=== PATIENT | female | born 1995 | race Caucasian/White ===

== ENCOUNTER → 2019-02-14 10:19 | Outpatient (CLI) | payer BC, SELFPAY | PROVIDERS: PCP Internal Medicine Adolescent Medicine; Visit Provider Internal Medicine Adolescent Medicine | DX: R00.2 Palpitations (principal); R55 Syncope and collapse | CPT/HCPCS: 93225; 93226 ==

== ENCOUNTER → 2019-02-18 14:41 | Outpatient (CLI) | payer BC, SELFPAY ==
--- NOTE | 2019-02-18 14:44 | CA_ITS ---
APPROVED REPORT EXAM: Comprehensive 2D, Doppler, and color-flow Echocardiogram Gasoline Tester: Angela Moulton CRT Ht: 5 ft 2 in Wt: 139lbs BSA: 1.64 BP: 110/60 mmHg Indications: palpitations, cp Echo Enhancing Agent Indication: Rule Out Septal Defect Agent(s) / Amount(s) Used: Agitated Saline 15 cc Comments: possible positive b/s. 2D Dimensions LVOT 1.83 cm (M/F) 1.5-2.5 M-Mode Dimensions RVDd 1.87 cm (0.9-2.6) LVDd 4.19 cm (3.5-5.7) LVDs 2.95 cm (3.5-5.7) IVSd 0.96 cm (0.6-1.1) PWd 0.74 cm (0.6-1.1) EF (Teich) 57.00% FS 29.60% EDV (Teich) 78.10 mL ESV (Teich) 33.60 mL LV Diastology E/A Ratio 1.66 Mitral Valve MV A Velocity 51.00 (40-130 cm/s) Left Ventricle Left atrium is normal size, left ventricle is normal size, there is no concentric left ventricular hypertrophy, visually estimated ejection fraction 55% with no regional wall motion abnormality, diastolic parameters are within normal range. Right Ventricle Right atrium and right ventricular normal size and contractility. Atria Interatrial septum is intact, there is no flow across the interatrial septum, agitated saline contrast reveals 25 intracardiac shunt. Aortic Valve Aortic valve is normal, there is no aortic stenosis or aortic insufficiency. Mitral Valve Mitral valve is normal, there is no mitral stenosis or mitral regurgitation. Tricuspid Valve Tricuspid valve is grossly normal, there is no tricuspid stenosis, there is trace tricuspid regurgitation, tricuspid regurgitation jet velocity is inadequate for calculation of the right ventricular systolic pressure. Pulmonic Valve Pulmonic valve is poorly visualized. Great Vessels Aortic root is normal size. Pericardium No significant pericardial effusion noted. Conclusion 1. Normal left ventricular size, preserved left ventricular systolic function, visually estimated ejection fraction 55% with no regional wall motion abnormality, diastolic parameters are within normal range. 2. Trace tricuspid regurgitation. 3. Agitated saline contrast study fails to identify intracardiac shunt. Electronically signed by : Isac Do, 03/01/2019 14:11:46
== END ==
PROVIDERS: PCP Internal Medicine Adolescent Medicine; Visit Provider Nurse Practitioner Family
DX: R00.2 Palpitations (principal); R55 Syncope and collapse
CPT/HCPCS: 93306

== ENCOUNTER → 2020-11-14 22:28 | Outpatient (CLI) | payer BC, SELFPAY ==
[2020-11-14 22:59] LABS: Free T4 (Free Thyroxine) 1.04 ng/dl (0.78-2.19)
[2020-11-14 23:39] LABS: Thyroid Stimulating Hormone 3.63 uIU/mL (0.465-4.68)
== END ==
PROVIDERS: Visit Provider Nurse Practitioner Family
DX: R79.89 Other specified abnormal findings of blood chemistry (principal)
CPT/HCPCS: 84439; 84443

== ENCOUNTER → 2022-07-04 16:47 | Outpatient (CLI) | payer OTHER, SELFPAY | PROVIDERS: PCP Family Medicine; Visit Provider Family Medicine | DX: R30.0 Dysuria (principal); B96.1 Klebsiella pneumoniae [K. pneumoniae] as the cause of diseases classified elsewhere; B96.89 Other specified bacterial agents as the cause of diseases classified elsewhere | CPT/HCPCS: 87086; 87088; 87186 ==

== ENCOUNTER → 2022-08-22 12:11 | Outpatient (CLI) | payer OTHER, SELFPAY ==
--- NOTE | 2022-08-22 12:15 | US_ITS ---
PROCEDURE: US TRANSVAGINAL CLINICAL INDICATION: pelvic pain/ IUD in place COMPARISON: No exams were available for comparison FINDINGS: UTERUS: 9cm x 5cmx 4cm with a combined endometrial thickness of 3.5mm. The uterus is retroverted at the fundus. There is an IUD within the uterus but it seems to displaced in the lower uterine segment and mostly in the upper cervix. LEFT OVARY: 7tbl3bdb1.9cm with a volume of 10.6ml.There is a 2.5 cm x 1.4 cm hemorrhagic cyst in the left ovary. RIGHT OVARY: 3cmx 8ant1gb with a volume of 3.8ml. There are several follicles within the right ovary. Both ovaries are seen and appear normal. Doppler flow to both ovaries are seen. There is trace fluid in the cul-de-sac. IMPRESSION: 1. Retroverted uterus normal in shape and size. The endometrium is thin at 3.5 mm. 2. THE IUD WITHIN THE UTERUS HAS BEEN DISPLACED INTO THE UPPER CERVIX. 3. Both ovaries are seen and appear normal. The left ovary has a small hemorrhagic follicle measuring 2.5 cm. The right ovary has several small follicles. 4. There is trace fluid in the cul-de-sac. Dictated by: Aneesh Juan MD 09/04/2022 11:20 Aneesh Juan MD in [place] 09/04/2022 11:20
== END ==
PROVIDERS: PCP Family Medicine; Visit Provider Obstetrics & Gynecology
DX: R10.2 Pelvic and perineal pain (principal); Z97.5 Presence of (intrauterine) contraceptive device
CPT/HCPCS: 76830

== ENCOUNTER → 2022-09-09 23:32 | Outpatient (CLI) | payer OTHER, SELFPAY ==
[2022-09-09 16:58] LABS: Basophils % 0.2 % (0.1-2.0); Eosinophils # 0.1 K/mm3 (0.0-0.4); Eosinophils % 0.6 % (0.1-12.0); Hematocrit 48.3 % (37.0-47.0); Hemoglobin 15.5 g/dL (12.2-16.2); Lymphocytes # 1.9 K/mm3 (0.7-4.5); Lymphocytes % 25.8 % (10-50); Mean Corpuscular HGB Conc 32.1 g/dL (31.8-35.4); Mean Corpuscular Hemoglobin 30.6 pg (27.0-31.2); Mean Corpuscular Volume 95.2 fl (81-99); Mean Platelet Volume 9.5 fl (7.4-10.4); Monocytes # 0.3 K/mm3 (0.1-1.0); Monocytes % 3.6 % (1.7-9.3); Neutrophils # 5.3 K/mm3 (1.8-7.8); Neutrophils % 69.7 % (37.0-80.0); Platelet Count 227 K/mm3 (142-424); Red Blood Count 5.08 M/mm3 (4.20-5.40); Red Cell Distribution Width 12.8 % (11.5-17.5); White Blood Count 7.5 K/mm3 (4.8-10.8)
[2022-09-09 17:54] LABS: Alanine Aminotransferase 19 U/L (12-78); Albumin Level 4.6 g/dl (3.5-5.0); Albumin/Globulin Ratio 1.4 (1.1-1.8); Alkaline Phosphatase 77 U/L (38-126); Anion Gap 12.5 mEq/L (5-15); Aspartate Amino Transferase 31 U/L (14-36); Bilirubin,Total 0.6 mg/dl (0.2-1.3); Blood Urea Nitrogen 14 mg/dl (7-17); Calcium 9.8 mg/dl (8.4-10.2); Carbon Dioxide 28 mmol/L (22.0-30.0); Chloride 103 mmol/L (98-107); Estimated Glomerular Filt Rate 75 ml/min (>60); GFR (African American) 90 ML/MIN (>60); Globulin 3.3 g/dL (1.3-3.2); Glucose 117 mg/dl (74-100); Potassium 4.5 mmoL/L (3.5-5.1); Sodium 139 mmol/L (136-145); Total Protein,Serum 7.9 g/dl (6.3-8.2)
[2022-09-09 18:13] LABS: HCG,Quantitative < 2 mIU/ml (0-5.42)
== END ==
PROVIDERS: PCP Family Medicine; Visit Provider Obstetrics & Gynecology
DX: T83.32XA Displacement of intrauterine contraceptive device, initial encounter (principal)
CPT/HCPCS: 80053; 84702; 85025

== ENCOUNTER 2022-09-12 07:55 | Day surgery (SDC) | payer OTHER, SELFPAY ==
[2022-09-11 08:21] VITALS: BMI 26.9
[2022-09-12 08:11] VITALS: BP 105/63; PULSE 78; RESP 18; TEMP 36.4; O2SAT 98
[2022-09-12 08:16] LABS: Urine Pregnancy, HCG Qual. Negative (Negative)
--- NOTE | 2022-09-12 08:18 | EXP.ANES.CKL ---
[facility] Disclaimer: The information contained in this section may have been updated after the patient was seen, as this information can be updated by other users. Medical History Anxiety Asthma Dyspareunia IUD (intrauterine device) in place Migraine Surgical History History of History of surgery History of wisdom tooth extraction Family History Father Diabetes Hypertension Hyperlipidemia Grandmother Hypertension Diabetes Thyroid disorder Social History Smoking Status: Never smoker alcohol intake: current substance use type: denies use current occupational status: employed Travel in the last 8 weeks: None household members: spouse and children housing: house [facility] Anesthesia Checklist Patient Identification Patient Identification: Arm Band and Verbal (Name & ) Structural Data Admitted From: Home Planned Operative Procedure/s: Hyst/IUD removal Consent for Planned Operative Procedure(s) Verified: Yes NPO Status Verified Time NPO: 00:00 Airway Assessment C-Spine Mobility Assessed: Yes TMJ Mobility Assessed: Yes Dentition: Good Dentition Neurological Assessment Level of Consciousness: Awake Hx Seizures: No Numbness or tingling in extremities: No Anesthesia Plan Anesthesia Risk discussed: Yes Anesthesia Plan: Verified ASA Class: I Anesthesia Type: General
[2022-09-12 12:25] VITALS: BP 115/76; PULSE 76; RESP 17; TEMP 36.8; O2SAT 100
[2022-09-12 12:45] VITALS: BP 110/73; PULSE 74; RESP 16; O2SAT 100
--- NOTE | 2022-09-13 12:43 | EXP.OP.NOTE ---
Date of procedure: 09/12/22 Pre-op Diagnosis:: Malpositioned IUD Post-op Diagnosis:: Same Procedure performed:: Exam under anesthesia IUD removal Surgeon:: Celia Merino MD Teletypesetter Monitor(s):: None OCEAN FISHING GUIDE:: Mathieu Major Anesthesia: MAC Estimated blood loss (mL): 0 Operative findings:: Malpositioned IUD in lower uterine segment, penetrating the myometrium Operative note:: The patient was taken to the OR for a planned diagnostic hysteroscopy with IUD removal. During anesthesia induction, IV access was lost as the Propofol was beginning to infuse, and anesthesia induction was halted. Multiple attempts were made by multiple providers, in multiple locations, utilizing imaging, to obtain alternate IV access. All attempts were unsuccessful, as her veins were all very small and very deep in location. A decision was made (with the patient's consent) to perform an exam under sedation using PO Ativan and Nitrous Oxide, with the additional plan for a paracervical block. Ativan 1mg was given PO and Nitrous Oxide was administered via face mask. She was subsequently placed in lithotomy position and the vulva/vagina were prepped. Land retractors were placed in the vagina and the anterior lip of the cervix was grasped with a single-tooth tenaculum. The IUD strings were still visible from the previous attempt to remove the IUD in the office, but the attempt to remove the IUD by pulling the strings with a ring forcep was unsuccessful, as the IUD appeared to have penetrated the myometrium at some point in the lower uterus. Before placing a paracervical block, a decision was made to attempt another less invasive approach at removal. Vaginal packing forceps were inserted through the cervix to locate the vertical portion of the IUD. The IUD was grasped and pulled towards the patient right, which successfully dislodged the arm of the IUD from the myometrium. The IUD was then easily removed by pulling the strings. The IUD was examined and completely intact. All instruments were then removed from her vagina and she was taken out of lithotomy position. She was taken to the recovery room, awake but sedated, in stable condition. All instrument/needle/sponge counts were correct. EBL: 0cc. Condition: stable Disposition: PACU Specimens:: IUD (to trash, not pathology) Complications:: None
== END 2022-09-12 12:55 | disposition home or self-care (01) ==
PROVIDERS: PCP Family Medicine; Visit Provider Obstetrics & Gynecology
PROC: (CPT 58562; principal; 2022-09-12 09:30)
DX: T83.32XA Displacement of intrauterine contraceptive device, initial encounter (principal)
CPT/HCPCS: 58562; 81025; 96374

== ENCOUNTER → 2022-12-29 16:29 | Outpatient (CLI) | payer OTHER, SELFPAY ==
[2022-12-29 16:43] LABS: HCG,Quantitative 14 mIU/ml (0-5.42)
[2022-12-31 11:04] LABS: Progesterone 1.1 ng/mL (.)
== END ==
PROVIDERS: PCP Family Medicine; Visit Provider Obstetrics & Gynecology
DX: N93.9 Abnormal uterine and vaginal bleeding, unspecified; O20.9 Hemorrhage in early pregnancy, unspecified
CPT/HCPCS: 84144; 84702

== ENCOUNTER → 2022-12-30 10:53 | Outpatient (CLI) | payer OTHER, SELFPAY ==
[2022-12-30 11:59] LABS: HCG,Quantitative 10 mIU/ml (0-5.42)
== END ==
PROVIDERS: PCP Family Medicine; Visit Provider Obstetrics & Gynecology
DX: N93.9 Abnormal uterine and vaginal bleeding, unspecified (principal)
CPT/HCPCS: 36415; 84702

== ENCOUNTER → 2023-01-08 21:55 | Outpatient (CLI) | payer OTHER, SELFPAY ==
[2023-01-08 22:48] LABS: HCG,Quantitative < 2 mIU/ml (0-5.42)
== END ==
PROVIDERS: PCP Obstetrics & Gynecology; Visit Provider Obstetrics & Gynecology
DX: O20.9 Hemorrhage in early pregnancy, unspecified (principal)
CPT/HCPCS: 84702

== ENCOUNTER 2023-03-23 16:38 | Outpatient (CLI) | payer OTHER, SELFPAY ==
[2023-03-23 22:23] LABS: HCG,Quantitative 80 mIU/ml (0-5.42)
[2023-03-24 12:12] LABS: Progesterone 37.6 ng/mL (.)
== END 2023-03-23 23:59 ==
LOC: LAB.DROPOF 16:38
PROVIDERS: PCP Obstetrics & Gynecology; Visit Provider Obstetrics & Gynecology
DX: Z32.00 Encounter for pregnancy test, result unknown (principal)
CPT/HCPCS: 84144; 84702

== ENCOUNTER 2023-03-25 15:57 | Outpatient (CLI) | payer OTHER, SELFPAY ==
[2023-03-25 17:28] LABS: HCG,Quantitative 225 mIU/ml (0-5.42)
== END 2023-03-25 23:59 ==
LOC: LAB 15:58
PROVIDERS: PCP Family Medicine; Visit Provider Obstetrics & Gynecology
DX: N92.6 Irregular menstruation, unspecified (principal); Z32.00 Encounter for pregnancy test, result unknown
CPT/HCPCS: 36415; 84702

== ENCOUNTER 2023-04-14 09:49 | Outpatient (CLI) | payer OTHER, SELFPAY ==
[2023-04-14 10:46] LABS: Basophils % 0.5 % (0.1-2.0); Eosinophils # 0.1 K/mm3 (0.0-0.4); Eosinophils % 0.8 % (0.1-12.0); Hematocrit 41.6 % (37.0-47.0); Hemoglobin 14.3 g/dL (12.2-16.2); Lymphocytes # 2.5 K/mm3 (0.7-4.5); Lymphocytes % 27.4 % (10-50); Mean Corpuscular HGB Conc 34.4 g/dL (31.8-35.4); Mean Corpuscular Hemoglobin 32.5 pg (27.0-31.2); Mean Corpuscular Volume 94.3 fl (81-99); Mean Platelet Volume 8.7 fl (7.4-10.4); Monocytes # 0.4 K/mm3 (0.1-1.0); Monocytes % 4.2 % (1.7-9.3); Neutrophils # 6.1 K/mm3 (1.8-7.8); Neutrophils % 67.2 % (37.0-80.0); Platelet Count 210 K/mm3 (142-424); Red Blood Count 4.41 M/mm3 (4.20-5.40); Red Cell Distribution Width 12.8 % (11.5-17.5); White Blood Count 9.1 K/mm3 (4.8-10.8)
[2023-04-16 09:51] LABS: Neisseria gonorrhoeae, NAA Negative (Negative)
[2023-04-16 12:34] LABS: HIV Screen 4th Generation wRfx Non Reactive
[2023-04-16 12:35] LABS: Hepatitis B Surface Antigen Negative; Hepatitis C Antibody Non Reactive; Rubella Antibodies, IgG 7.26
== END 2023-04-14 23:59 ==
LOC: LAB 09:49
PROVIDERS: PCP Family Medicine; Visit Provider Obstetrics & Gynecology
DX: Z34.91 Encounter for supervision of normal pregnancy, unspecified, first trimester (principal); Z3A.01 Less than 8 weeks gestation of pregnancy
CPT/HCPCS: 36415; 85025; 86593; 86703; 86762; 86850; 87086; 87340; 87380; 87491; 87591; G0432

== ENCOUNTER 2023-04-16 19:25 | Outpatient (CLI) | payer OTHER, SELFPAY ==
[2023-04-17 13:11] LABS: Treponema pallidum Ab (FTA-ABS Non Reactive (Non Reactive)
== END 2023-04-16 23:59 ==
LOC: LAB.DROPOF 19:25
PROVIDERS: PCP Obstetrics & Gynecology; Visit Provider Obstetrics & Gynecology
DX: A53.0 Latent syphilis, unspecified as early or late (principal)
CPT/HCPCS: 86780

== ENCOUNTER 2023-07-08 08:13 | Outpatient (CLI) | payer OTHER, SELFPAY ==
--- NOTE | 2023-07-08 08:14 | US_ITS ---
PROCEDURE: US OB /MATERNAL DETAIL CLINICAL INDICATION: anatomy scan COMPARISON: No exams were available for comparison FINDINGS: Transabdominal sonographic images of the pelvis were obtained. From her established due date she is 19 weeks 3 days.. Single viable intrauterine gestation. Cephalic position. Placenta: Anteriorplacenta grade 1. There is a placental Funk. There is an average amount of fluid. The cervix appears satisfactory. Closed and measuring 4.7 cm in length. Complete survey performed and was unremarkable on the submitted images as in PACS. No discrete anomalies identified on survey imaging by technologist. Active fetus. Three-vessel cord with satisfactory umbilical cord insertion. 4- chamber heart noted. Situs, aortic arch, LVOT, RVOT, three-vessel view appear normal. Survey of brain & ventricles Unremarkable. Cerebellum, thalamus, choroid plexus, cisterna magna appear normal. Face and neck survey unremarkable. Profile, nasion, lips and nose appeared normal. Diaphragm and chest views unremarkable. Abdomen: Both kidneys noted and unremarkable. Stomach and bladder noted and satisfactory. Spine: Survey of the spine satisfactory with no anomalies identified nor imaged. Cervical, thoracic, lower spine appear normal. Both arms and legs noted. Amniotic Fluid: Adequate. Measurements: Average ultrasound age 19weeks 2days. Estimated due date by ultrasound age 0911/30/2023. Estimated weight 286g BPD = 19weeks 0 days HC = 18weeks 6days AC = 19weeks 3days FL = 19weeks 4days Growth Percentile= 39 Heart Rate = 136bpm Cerebellum = 18weeks 5days Humerus = 19weeks 3days HC/AC is 1.14 FL/BPD is 0.72 FL/AC is 0.22 IMPRESSION: 1. Viable fetus in the cephalic presentation with an anterior placenta grade 1. There is a placental Funk. 2. The fluid is within normal limits. 3. Anatomical scan appears normal. heart exam was incomplete due to the position. Suggest follow-up in 2-4 weeks. 4. biometry is consistent with the dates. Dictated by: Aneesh Juan MD 07/08/2023 11:35 Aneesh Juan MD in [facility] 07/08/2023 11:35
== END 2023-07-08 23:59 | disposition home or self-care (01) ==
LOC: RAD 08:14
PROVIDERS: PCP Family Medicine; Visit Provider Obstetrics & Gynecology
DX: O26.892 Other specified pregnancy related conditions, second trimester (principal); Z36.89 Encounter for other specified antenatal screening; Z3A.20 20 weeks gestation of pregnancy
CPT/HCPCS: 76811

== ENCOUNTER 2023-07-22 12:40 | Outpatient (CLI) | payer OTHER, SELFPAY ==
--- NOTE | 2023-07-22 12:40 | US_ITS ---
PROCEDURE: US OB LIMITED POSITION CLINICAL INDICATION: follow up anatomy scan to view baby's heart COMPARISON: US US OB /MATERNAL DETAIL from 07/08/2023 FINDINGS: Transabdominal sonographic images of the pelvis were obtained. The following parameters are obtained: From her established due date she is 21weeks 3days Viable fetus in the cephalic presentation with an anterior placenta grade 1. The cervix measures 4.0 cm. heart rate: 146bpm bpm. Amniotic fluid index: Appears normal. No obvious anomalies evident. profile seen, nasion, stomach, bladder, three-vessel cord, four chamber heart, three-vessel view, LVOT appear normal. IMPRESSION: 1. Viable fetus in the cephalic presentation with an anterior placenta grade 1. 2. The fluid is within normal limits. 3. Limited anatomical scan appears normal. Heart anatomy including four-chamber view, three-vessel view and LVOT appear normal. Dictated by: Aneesh Juan MD 07/22/2023 14:44 Aneesh Juan MD in [facility] 07/22/2023 14:44
== END 2023-07-22 23:59 | disposition home or self-care (01) ==
LOC: RAD 12:40
PROVIDERS: PCP Family Medicine; Visit Provider Obstetrics & Gynecology
DX: O26.892 Other specified pregnancy related conditions, second trimester (principal); Z3A.21 21 weeks gestation of pregnancy; Z36.2 Encounter for other antenatal screening follow-up
CPT/HCPCS: 76815

== ENCOUNTER 2023-09-01 14:12 | Emergency (ER) | payer OTHER, SELFPAY ==
[2023-09-01] VITALS (7 sets, daily range): BP systolic 101–136; BP diastolic 57–85; PULSE 70–103; RESP 13–15; TEMP 36.6–36.7; O2SAT 97–99; BMI 32.0
--- NOTE | 2023-09-01 14:32 | ECG_ITS ---
APPROVED REPORT Exam: Resting ECG HR:98 bpm ECG Measurements Heart Rate 98 AXES LA 134 P 78 QRSd 84 QRS 93 QT 338 T 8 QTc 393 Conclusion SINUS RHYTHM BORDERLINE RIGHT AXIS DEVIATION [QRS AXIS > 90] NONSPECIFIC T-WAVE ABNORMALITY BORDERLINE ECG UNCONFIRMED REPORT Electronically signed by : MAGED MELENDREZ, 09/01/2023 16:09:35
--- NOTE | 2023-09-01 14:41 | ED_ITS ---
Discharge Plan Disposition Patient Disposition: Home, Self-Care Prescriptions Prescriptions: No Action PNV no.[id number] acid 28 mg iron- 800 mcg tablet 1 tab PO DAILY Referrals Follow up/Referrals: Eran Campoverde MD [Primary Care Provider] - See instructions Activity Restrictions/Add. Instructions Additional Instructions/Restrictions: Serial neurologic exams today are normal there remain some diagnostic uncertainty but with a mild headache in the setting of unexplained neurologic symptoms with normal MRIs your working diagnosis is a complicated migraine. Cannot definitively rule out a transient ischemic attack. However with shared decision making discussed not initiating numerous recertifying medications in the setting of . Please return with any recurrent neurologic symptoms otherwise you may follow-up outpatient with your primary care doctor. Clinical Impressions Clinical Impression: Complicated migraine, Confusion, Difficulty with speech, Transient vision disturbance of right eye, Head ache Discharge ED Provider: Calvin Emery General Adult HPI <Calvin Emery DO - Last Filed: 09/01/23 15:26> General Chief complaint: Neuro Symptoms/Deficit Stated complaint: sudden confusion, 27 wks antepartum, vision proble Time Seen by Provider: 09/01/23 14:41 History of Present Illness HPI narrative: 28-year-old female with past medical history significant for migraine headaches, 27.2 weeks gestation, presents today for evaluation concerning sudden confusion while she was eating lunch around 12:10 PM. She also states that she had difficulty finding her words and had blurred vision out of her right eye. She states that her symptoms began to resolve and were completely resolved by the time she mated to the hospital. She reports having a mild generalized headache but denies any nausea, vomiting, fevers, chills, chest pain or shortness of breath. Denies any numbness, tingling or weakness. She states that she has since returned to her baseline. No further complaints. Related Data Home Medications Medication Instructions Recorded Confirmed vitamins no.121-iron 28 1 tab PO DAILY 12/30/22 08/12/23 mg-folic acid 800 mcg tablet Allergies Allergy/AdvReac Type Severity Reaction Status Date / Time No Known Allergies Allergy Verified 08/12/23 14:28 [facility] <Calvin Emery DO - Last Filed: 09/01/23 15:26> [facility] Disclaimer: The information contained in this section may have been updated after the patient was seen, as this information can be updated by other users. Medical History Constipation in Screening for genetic disease carrier status 05/12/23 - [facility] carrier screen for 4 diseases tested including CF, Fragile X, SMA and DMD GBS bacteriuria GBS bacteriuria on initial Ob urine culture. Rh negative state in antepartum period Nausea/vomiting in Vaginal bleeding affecting early Asthma Migraine Dyspareunia Anxiety Surgical History History of surgery nipple History of wisdom tooth extraction History of Family History Father Diabetes Hypertension Hyperlipidemia Grandmother Hypertension Diabetes Thyroid disorder Social History Smoking Status: Never smoker alcohol intake: current alcohol intake frequency: holidays/special occasions only substance use type: denies use current occupational status: employed Travel in the last 8 weeks: None household members: spouse and children housing: house <Calvin Emery DO - Last Filed: 09/01/23 15:26> ROS Obtained: Yes All systems reviewed & no additional complaints except as documented Physical Exam <Calvin Emery DO - Last Filed: 09/01/23 15:26> General General appearance: alert and in no apparent distress Head Head exam: atraumatic and normocephalic Eye Eye exam: Present normal appearance, PERRL and EOMI ENT ENT exam: Present normal oropharynx and mucous membranes moist Neck Neck exam: Present full ROM; Absent meningismus Respiratory Respiratory exam: Absent respiratory distress, wheezes, stridor or accessory muscle use Cardiovascular Cardiovascular exam: Present normal rhythm Abdominal Exam Abdominal exam: Present soft; Absent distention, tenderness, guarding, rebound or rigidity Neurological Exam Neurological exam: Present alert, oriented X3 and CN II-XII intact; Absent motor sensory deficit Psychiatric Psychiatric exam: Present normal affect and normal mood Skin Skin exam: Present warm and dry Medical Decision Making <Calvin Emery DO - Last Filed: 09/01/23 15:26> Medical Records Medical records reviewed: Yes I reviewed the patient's medical records. Melvin Inquiry Pt receiving controlled substance: No Melvin was queried for this patient: No Vital Signs: 09/01/23 14:14 09/01/23 14:30 09/01/23 16:37 Temperature 97.9 F Temperature Source Oral Pulse Rate 100 H 103 H Pulse Rate [Left Radial] 98 H Respiratory Rate 15 Blood Pressure 132/79 112/67 Blood Pressure [Right Arm] 136/85 Blood Pressure Mean Blood Pressure Mean [Right Arm] 102 02 Sat by Pulse Oximetry 98 98 97 Oxygen Delivery Method Room Air Room Air 09/01/23 17:00 09/01/23 17:30 09/01/23 17:45 Temperature Temperature Source Pulse Rate 94 H 83 97 H Pulse Rate [Left Radial] Respiratory Rate Blood Pressure 107/61 L 101/57 L 101/57 L Blood Pressure [Right Arm] Blood Pressure Mean 76 69 Blood Pressure Mean [Right Arm] 02 Sat by Pulse Oximetry 98 99 97 Oxygen Delivery Method Room Air Room Air Lab Data Lab Results 09/01/23 14:52: WBC 9.4, RBC 4.08 L, Hgb 13.9, Hct 41.2, MCV 100.8 H, MCH 34.0 H , MCHC 33.7, RDW 14.0, Plt Count 198, MPV 8.4, Neut % (Auto) 76.7, Lymph % (Auto) 17.7, [place] % (Auto) 4.5, Eos % (Auto) 0.6, Baso % (Auto) 0.4, Neut # (Auto) 7.2, Lymph # (Auto) 1.7, [place] # (Auto) 0.4, Eos # (Auto) 0.1, Baso # (Auto) 0.0, PT 9.5 L, INR 0.83 L, Sodium 137, Potassium 3.7, Chloride 107, Carbon Dioxide 24, Anion Gap 9.7, BUN 8, Creatinine 0.70, Estimated Creat Clear 149, Estimated GFR 99, Est GFR ( Amer) 120, Glucose 134 H, Calcium 9.4, Total Bilirubin 0.3, AST 31, ALT 17, Alkaline Phosphatase 84, Total Protein 7.8, Albumin 4.0, Globulin 3.8 H, Albumin/Globulin Ratio 1.1, HCG, Quant [id number] H 09/01/23 14:57: Urine Color Yellow, Urine Appearance Clear, Urine pH 6.5, Ur Specific [place] <= 1.005, Urine Protein Negative, Urine Glucose (UA) 1+, Urine Ketones Negative, Urine Blood Negative, Urine Nitrate Negative, Urine Bilirubin Negative, Urine Urobilinogen 0.2, Ur Leukocyte Esterase Negative, Urine RBC None, Urine WBC None, Ur Squamous Epith Cells 5-10, Urine Bacteria None 09/01/23 14:52 09/01/23 14:52 Orders (Tests/Meds): ORDERS Category Date Time Status Beta HCG, Quant [HCG,Quantitative] Stat Lab 09/01/23 14:52 Completed CBC w/Auto Diff [Complete Blood Count Auto Diff] Stat Lab 09/01/23 14:52 Completed CMP [Comprehensive Metabolic Panel] Stat Lab 09/01/23 14:52 Completed PT INR [Prothrombin Time INR] Stat Lab 09/01/23 14:52 Completed UA [Urinalysis and Microscopic] Stat Lab 09/01/23 14:57 Completed Medical Decision Narrative: 28-year-old female with past medical history significant for migraine headaches, 27.2 weeks gestation, presents today for evaluation concerning sudden confusion while she was eating lunch around 12:10 PM. She also states that she had difficulty finding her words and had blurred vision out of her right eye. She states that her symptoms began to resolve and were completely resolved by the time she mated to the hospital. She reports having a mild generalized headache but denies any nausea, vomiting, fevers, chills, chest pain or shortness of breath. Denies any numbness, tingling or weakness. On assessment, she was hemodynamically stable and in no acute distress. Afebrile. Chest clear to auscultation bilaterally. Abdomen was gravid, nontender to palpation. Her neurological exam was nonfocal. She was back at her baseline. I did use bedside ultrasound to assess heart tones and heart rate was noted to be 140 bpm. Other physical exam findings unremarkable. Differential diagnoses include not limited to TIA, dural venous thrombosis, CVA, UTI, electro disturbance, among others Labs today have been nonactionable. WBC not elevated at 9.4. PT/INR 9.5/0.83. No signs of UTI on urinalysis. I did have shared decision-making discussion with patient concerning CT imaging versus MRI and patient has noted that she would like to have MRI to assess for dural venous thrombosis and TIA. Understands risks versus benefits. At this time, care has been signed out to oncoming provider pending MRIs. <Reina Merino MD - Last Filed: 09/01/23 18:04> Vital Signs: 09/01/23 14:14 09/01/23 14:30 09/01/23 16:37 Temperature 97.9 F Temperature Source Oral Pulse Rate 100 H 103 H Pulse Rate [Left Radial] 98 H Respiratory Rate 15 Blood Pressure 132/79 112/67 Blood Pressure [Right Arm] 136/85 Blood Pressure Mean Blood Pressure Mean [Right Arm] 102 02 Sat by Pulse Oximetry 98 98 97 Oxygen Delivery Method Room Air Room Air 09/01/23 17:00 09/01/23 17:30 09/01/23 17:45 Temperature Temperature Source Pulse Rate 94 H 83 97 H Pulse Rate [Left Radial] Respiratory Rate Blood Pressure 107/61 L 101/57 L 101/57 L Blood Pressure [Right Arm] Blood Pressure Mean 76 69 Blood Pressure Mean [Right Arm] 02 Sat by Pulse Oximetry 98 99 97 Oxygen Delivery Method Room Air Room Air Lab Data Lab results reviewed: Yes I reviewed the patient's lab results. Lab Results 09/01/23 14:52: WBC 9.4, RBC 4.08 L, Hgb 13.9, Hct 41.2, MCV 100.8 H, MCH 34.0 H , MCHC 33.7, RDW 14.0, Plt Count 198, MPV 8.4, Neut % (Auto) 76.7, Lymph % (Auto) 17.7, [place] % (Auto) 4.5, Eos % (Auto) 0.6, Baso % (Auto) 0.4, Neut # (Auto) 7.2, Lymph # (Auto) 1.7, [place] # (Auto) 0.4, Eos # (Auto) 0.1, Baso # (Auto) 0.0, PT 9.5 L, INR 0.83 L, Sodium 137, Potassium 3.7, Chloride 107, Carbon Dioxide 24, Anion Gap 9.7, BUN 8, Creatinine 0.70, Estimated Creat Clear 149, Estimated GFR 99, Est GFR ( Amer) 120, Glucose 134 H, Calcium 9.4, Total Bilirubin 0.3, AST 31, ALT 17, Alkaline Phosphatase 84, Total Protein 7.8, Albumin 4.0, Globulin 3.8 H, Albumin/Globulin Ratio 1.1, HCG, Quant [id number] 09/01/23 14:57: Urine Color Yellow, Urine Appearance Clear, Urine pH 6.5, Ur Specific [place] <= 1.005, Urine Protein Negative, Urine Glucose (UA) 1+, Urine Ketones Negative, Urine Blood Negative, Urine Nitrate Negative, Urine Bilirubin Negative, Urine Urobilinogen 0.2, Ur Leukocyte Esterase Negative, Urine RBC None, Urine WBC None, Ur Squamous Epith Cells 5-10, Urine Bacteria None Orders (Tests/Meds): ORDERS Category Date Time Status Beta HCG, Quant [HCG,Quantitative] Stat Lab 09/01/23 14:52 Completed CBC w/Auto Diff [Complete Blood Count Auto Diff] Stat Lab 09/01/23 14:52 Completed CMP [Comprehensive Metabolic Panel] Stat Lab 09/01/23 14:52 Completed PT INR [Prothrombin Time INR] Stat Lab 09/01/23 14:52 Completed UA [Urinalysis and Microscopic] Stat Lab 09/01/23 14:57 Completed Medical Decision Narrative: 28-year-old female with past medical history significant for migraine headaches, 27.2 weeks gestation, presents today for evaluation concerning sudden confusion while she was eating lunch around 12:10 PM. She also states that she had difficulty finding her words and had blurred vision out of her right eye. She states that her symptoms began to resolve and were completely resolved by the time she mated to the hospital. She reports having a mild generalized headache but denies any nausea, vomiting, fevers, chills, chest pain or shortness of breath. Denies any numbness, tingling or weakness. On assessment, she was hemodynamically stable and in no acute distress. Afebrile. Chest clear to auscultation bilaterally. Abdomen was gravid, nontender to palpation. Her neurological exam was nonfocal. She was back at her baseline. I did use bedside ultrasound to assess heart tones and heart rate was noted to be 140 bpm. Other physical exam findings unremarkable. Differential diagnoses include not limited to TIA, dural venous thrombosis, CVA, UTI, electro disturbance, among others Labs today have been nonactionable. WBC not elevated at 9.4. PT/INR 9.5/0.83. No signs of UTI on urinalysis. I did have shared decision-making discussion with patient concerning CT imaging versus MRI and patient has noted that she would like to have MRI to assess for dural venous thrombosis and TIA. Understands risks versus benefits. At this time, care has been signed out to oncoming provider pending MRIs. Reassessment this is Dr. Merino I took over from Dr. Emery at around 3 PM. MRIs were performed which I personally interpreted also reviewed radiology reads and there is no evidence of any intracranial abnormality vascular abnormality clot etc. Serial neurologic exams are normal patient appears very well my assessment. She does not have any underlying cardiovascular risk factors or anatomic abnormalities on MRIs. Is unlikely that this was a transient ischemic attack and given the fact that she had a mild headache that has since resolved associated with neurologic symptoms working diagnosis is a complicated/complex migraine. No ongoing evidence of vasculitis or indication for inpatient evaluation or admission. Discussed with her the risk and benefits of admission with further restratification and initiation of medication such as would be used for hypertension and diabetes lipid management etc. in the setting of this not something that she desired and I agree. She will follow-up closely with her primary care doctor. Additionally with this history after she is I recommended progesterone only control given the concern for clot formation in the future with migraine with aura/complication in setting of estrogen. Patient understands to return with any significant worsening of her symptoms and she was discharged in stable condition. Critical Care <Calvin Emery DO - Last Filed: 09/01/23 15:26> Critical Care Time Critical Care Time: No <Reina Merino MD - Last Filed: 09/01/23 18:04> Critical Care Time Critical Care Time: Yes Attestation: On 09/01/23, the high probability of a clinically significant, sudden or life threatening deterioration of the following system(s) required my full and direct attention, intervention and personal management. The time I documented below is in addition to time spent performing reported procedures but includes the following listed in this critical care notation. Total Time Total Critical Care Time: 35
--- NOTE | 2023-09-01 14:58 | PC.NURSE ---
spoke with care management about pt getting MRI for possible TIA.
--- NOTE | 2023-09-01 15:01 | MR_ITS ---
FINAL REPORT CLINICAL HISTORY: TIA. EPISODE OF CONFUSION FINDINGS: Multiplanar MR imaging of the brain was performed without contrast. There is no evidence of intracranial hemorrhage or mass. The ventricular size is normal. There is no evidence of shift of the midline structures. No area of restricted diffusion is identified. The posterior fossa and brainstem have an unremarkable appearance. Normal major vessel vascular flow voids are seen. IMPRESSION: Unremarkable brain with no focal abnormality identified. Reviewed, Interpreted and Dictated by Jv Lerner III, MD Transcribed by Carrol Rodriguez Authenticated and [facility]
[2023-09-01 15:06] LABS: Microscopic, Urine URINE MICROSCOPIC (MICROSCOPIC)
[2023-09-01 15:09] LABS: Basophils % 0.4 % (0.1-2.0); Eosinophils # 0.1 K/mm3 (0.0-0.4); Eosinophils % 0.6 % (0.1-12.0); Hematocrit 41.2 % (37.0-47.0); Hemoglobin 13.9 g/dL (12.2-16.2); Lymphocytes # 1.7 K/mm3 (0.7-4.5); Lymphocytes % 17.7 % (10-50); Mean Corpuscular HGB Conc 33.7 g/dL (31.8-35.4); Mean Corpuscular Volume 100.8 fl (81-99); Mean Platelet Volume 8.4 fl (7.4-10.4); Monocytes # 0.4 K/mm3 (0.1-1.0); Monocytes % 4.5 % (1.7-9.3); Neutrophils # 7.2 K/mm3 (1.8-7.8); Neutrophils % 76.7 % (37.0-80.0); Platelet Count 198 K/mm3 (142-424); Red Blood Count 4.08 M/mm3 (4.20-5.40); White Blood Count 9.4 K/mm3 (4.8-10.8)
[2023-09-01 15:11] LABS: Appearance,Urine CLEAR (Clear); Bilirubin,Urine Negative (Negative); Blood, Urine Negative (Negative); Color,Urine YELLOW (Yellow); Glucose,Urine (UA) 1+ (Negative); Ketones,Urine Negative (Negative); Leukocyte Esterase,Urine Negative (Negative); Nitrate,Urine Negative (Negative); PH,Urine 6.5 (5.0-8.5); Protein,Urine Negative (Negative); Specific Gravity, Urine <= 1.005 (1.005-1.030); Urobilinogen,Urine 0.2 EU/dl (0.2)
[2023-09-01 15:12] LABS: Chloride 107 mmol/L (98-107); Potassium 3.7 mmoL/L (3.5-5.1); Sodium 137 mmol/L (136-145)
--- NOTE | 2023-09-01 15:12 | PC.NURSE ---
pt to MRI via wheelchair
[2023-09-01 15:14] LABS: INR 0.83 (0.9-1.1); Prothrombin Time 9.5 seconds (10.1-12.5)
[2023-09-01 15:15] LABS: Alanine Aminotransferase 17 U/L (12-78); Albumin/Globulin Ratio 1.1 (1.1-1.8); Alkaline Phosphatase 84 U/L (38-126); Anion Gap 9.7 mEq/L (5-15); Aspartate Amino Transferase 31 U/L (14-36); Bilirubin,Total 0.3 mg/dl (0.2-1.3); Blood Urea Nitrogen 8 mg/dl (7-17); Calcium 9.4 mg/dl (8.4-10.2); Carbon Dioxide 24 mmol/L (22.0-30.0); Creatinine Clearance Estimated 149 mL/min (50-200); Estimated Glomerular Filt Rate 99 ml/min (>60); GFR (African American) 120 ML/MIN (>60); Globulin 3.8 g/dL (1.3-3.2); Glucose 134 mg/dl (74-100); Total Protein,Serum 7.8 g/dl (6.3-8.2)
--- NOTE | 2023-09-01 15:15 | MR_ITS ---
FINAL REPORT CLINICAL HISTORY: confusion,R eye visual disturbance,difficul speech FINDINGS: Multiple projection images of the neck arterial vasculature were obtained without contrast. The raw data images were also reviewed. The right common carotid artery has an unremarkable appearance without evidence of stenosis or occlusion. The right internal carotid artery has an unremarkable appearance without evidence of stenosis or occlusion. The right external carotid artery is patent. The right vertebral artery is patent without evidence of stenosis. The right vertebral artery is dominant. The left common carotid artery has an unremarkable appearance without evidence of stenosis or occlusion. The left internal carotid artery is patent without evidence of stenosis or occlusion. The left external carotid artery is patent. The left vertebral artery is patent without evidence of stenosis. IMPRESSION: Unremarkable MR angiogram of the neck without evidence of stenosis or occlusion. Reviewed, Interpreted and Dictated by Jv Lerner III, MD Transcribed by Carrol Rodriguez Authenticated and [facility]
--- NOTE | 2023-09-01 15:17 | MR_ITS ---
FINAL REPORT CLINICAL HISTORY: confusion,R eye visual disturbance,difficul speech FINDINGS: Multiple projection images of the brain venous vasculature was performed without contrast. The raw data images were also reviewed. The major venous sinuses appear patent without evidence of occlusion. No venous abnormality is identified. IMPRESSION: No abnormality identified of the brain venous vasculature. Reviewed, Interpreted and Dictated by Jv Lerner III, MD Transcribed by Carrol Rodriguez Authenticated and . [facility]
--- NOTE | 2023-09-01 15:17 | PC.NURSE ---
approval for MRI given per care management
[2023-09-01 15:32] LABS: HCG,Quantitative 11300 mIU/ml (0-5.42)
--- NOTE | 2023-09-01 15:32 | MR_ITS ---
FINAL REPORT CLINICAL HISTORY: TIA. EPISODE OF CONFUSION FINDINGS: Multiple projection images of the brain arterial vasculature were obtained without contrast. The raw data images were also reviewed. The distal internal carotid, distal vertebral and basilar arteries have an unremarkable appearance without evidence of significant stenosis or occlusion. The proximal anterior, middle and posterior cerebral arteries have an unremarkable appearance. There is no evidence of significant stenosis or major branch occlusion. No aneurysm or vascular malformation is identified. IMPRESSION: Unremarkable MR angiogram of the head. Reviewed, Interpreted and Dictated by Jv Lerner III, MD Transcribed by Carrol Rodriguez Authenticated and [facility]
--- NOTE | 2023-09-01 16:25 | PC.NURSE ---
pt back to room from MRI.
== END 2023-09-01 18:22 | disposition home or self-care (01) ==
PROVIDERS: Emergency Provider Emergency Medicine; PCP Family Medicine
DX: O26.892 Other specified pregnancy related conditions, second trimester (principal); G43.109 Migraine with aura, not intractable, without status migrainosus; R41.0 Disorientation, unspecified; R47.9 Unspecified speech disturbances; H53.8 Other visual disturbances; Z3A.27 27 weeks gestation of pregnancy
CPT/HCPCS: 70544; 70547; 70551; 80053; 81001; 84702; 85025; 85610; 93005; 99285

== ENCOUNTER 2023-09-09 08:56 | Outpatient (CLI) | payer OTHER, SELFPAY ==
[2023-09-09 09:31] LABS: Basophils # 0.1 K/mm3 (0-0.2); Basophils % 0.5 % (0.1-2.0); Eosinophils # 0.1 K/mm3 (0.0-0.4); Eosinophils % 0.5 % (0.1-12.0); Glucose,Fasting 80 mg/dl (74-100); Lymphocytes # 2.4 K/mm3 (0.7-4.5); Lymphocytes % 24.7 % (10-50); Mean Corpuscular HGB Conc 33.3 g/dL (31.8-35.4); Mean Corpuscular Hemoglobin 34.1 pg (27.0-31.2); Mean Corpuscular Volume 102.3 fl (81-99); Mean Platelet Volume 8.5 fl (7.4-10.4); Monocytes # 0.4 K/mm3 (0.1-1.0); Monocytes % 4.6 % (1.7-9.3); Neutrophils # 6.7 K/mm3 (1.8-7.8); Neutrophils % 69.7 % (37.0-80.0); Platelet Count 191 K/mm3 (142-424); Red Blood Count 3.82 M/mm3 (4.20-5.40); Red Cell Distribution Width 13.9 % (11.5-17.5); White Blood Count 9.6 K/mm3 (4.8-10.8)
[2023-09-09 11:08] LABS: Glucose 1 Hour 155 mg/dL (74-100)
== END 2023-09-09 23:59 | disposition home or self-care (01) ==
PROVIDERS: PCP Family Medicine; Visit Provider Obstetrics & Gynecology
DX: O26.893 Other specified pregnancy related conditions, third trimester (principal); Z67.91 Unspecified blood type, Rh negative; Z98.891 History of uterine scar from previous surgery; Z3A.28 28 weeks gestation of pregnancy; G43.109 Migraine with aura, not intractable, without status migrainosus
CPT/HCPCS: 36415; 82951; 85025; 86870

== ENCOUNTER 2023-09-12 08:13 | Outpatient (CLI) | payer OTHER, SELFPAY ==
[2023-09-12 09:06] LABS: Glucose,Fasting 76 mg/dl (74-100)
[2023-09-12 10:38] LABS: Glucose 1 Hour 198 mg/dL (74-100)
[2023-09-12 11:55] LABS: Glucose 2 Hour 180 mg/dL (74-100)
[2023-09-12 12:42] LABS: Glucose 3 Hour 140 mg/dL (74-100)
== END 2023-09-12 23:59 | disposition home or self-care (01) ==
LOC: LAB 08:15
PROVIDERS: PCP Family Medicine; Visit Provider Obstetrics & Gynecology
DX: Z34.90 Encounter for supervision of normal pregnancy, unspecified, unspecified trimester (principal)
CPT/HCPCS: 82951

== ENCOUNTER 2023-09-14 16:13 | Outpatient (CLI) | payer OTHER, SELFPAY ==
[2023-09-14] MEDS: RHO(D) IMMUNE GLOBULIN 1,500 UNIT SYRINGE 1500 UNIT IM (16:28)
[2023-09-14 16:30] VITALS: BP 119/72; PULSE 89; RESP 18; O2SAT 99
== END 2023-09-14 16:30 | disposition home or self-care (01) ==
LOC: INF 16:18
PROVIDERS: PCP Family Medicine; Visit Provider Obstetrics & Gynecology
DX: O36.1930 Maternal care for other isoimmunization, third trimester, not applicable or unspecified (principal); Z3A.28 28 weeks gestation of pregnancy; Z79.899 Other long term (current) drug therapy
CPT/HCPCS: 96372; J2790

== ENCOUNTER 2023-09-16 16:27 | Outpatient (CLI) | payer OTHER, SELFPAY | END 2023-09-16 23:59 | disposition home or self-care (01) | LOC: LAB 16:28 | PROVIDERS: PCP Family Medicine; Visit Provider Obstetrics & Gynecology | DX: Z34.90 Encounter for supervision of normal pregnancy, unspecified, unspecified trimester (principal) | CPT/HCPCS: 86870 ==

== ENCOUNTER 2023-09-24 17:13 | Outpatient (CLI) | payer OTHER, SELFPAY ==
[2023-09-24 17:30] VITALS: BMI 33.8
[2023-09-24 17:35] LABS: Microscopic, Urine URINE MICROSCOPIC (MICROSCOPIC)
[2023-09-24 17:39] VITALS: BP 114/71; PULSE 99; RESP 19; TEMP 36.7; O2SAT 99; BMI 33.8
--- NOTE | 2023-09-24 17:53 | US_ITS ---
PROCEDURE INFORMATION: Exam: US Abdomen, Limited; Right Upper Quadrant Exam date and time: 09/24/2023 6:39 PM Age: 28 years old Clinical indication: Abdominal pain; Acute; ; Additional info: Ruq pain-- 30 wk s TECHNIQUE: Imaging protocol: Real time ultrasound of the abdomen with image documentation. Limited exam focused on the right upper quadrant. COMPARISON: US OB TRANSVAGINAL 09/24/2023 6:32 PM FINDINGS: Liver: Normal. No masses. Gallbladder: Hyperechoic material dependently layering within the gallbladder fossa compatible with biliary sludge. No gallbladder wall thickening. Biliary ducts: Normal. No stones. No dilation. Pancreas: Visualized pancreas is unremarkable. Right kidney: Normal. No mass. No hydronephrosis. Other findings: heart rate is 144 bpm. IMPRESSION: 1. Hyperechoic material dependently layering within the gallbladder fossa compatible with biliary sludge. No gallbladder wall thickening. 2. heart rate is 144 bpm.
[2023-09-24] MEDS: LACTATED RINGERS 1000ML 1,000 ML 999 ML IV (18:14)
[2023-09-24 18:19] LABS: Appearance,Urine CLEAR (Clear); Bilirubin,Urine Negative (Negative); Blood, Urine Negative (Negative); Color,Urine YELLOW (Yellow); Glucose,Urine (UA) Negative (Negative); Ketones,Urine 1+ (Negative); Leukocyte Esterase,Urine Negative (Negative); Nitrate,Urine Negative (Negative); Protein,Urine Negative (Negative); Specific Gravity, Urine <= 1.005 (1.005-1.030); Urobilinogen,Urine 0.2 EU/dl (0.2)
[2023-09-24 18:31] LABS: Amphetamine/Metha Screen,Urine Negative ng/ml (<1000)
[2023-09-24 18:32] LABS: Barbiturates Screen,Urine Negative ng/ml (<200)
--- NOTE | 2023-09-24 18:32 | US_ITS ---
PROCEDURE INFORMATION: Exam: US , Transvaginal Exam date and time: 09/24/2023 6:32 PM Age: 28 years old Clinical indication: complicated by abdominal or pelvic pain; Right upper quadrant; Third trimester (>=28 weeks 0 days); Gestational age or lmp: [id number]; ; Additional info: RT quadrant pain LABS AND CLINICAL REPORTS: Gestational age (Established): 30 w 4 d Estimated due date (Established): 11/29/2023 TECHNIQUE: Imaging protocol: Real-time transvaginal obstetrical ultrasound of the maternal pelvis with image documentation. Transvaginal imaging was used for better evaluation of the fetus, adnexa, and/or cervix. COMPARISON: US OB TRANSVAGINAL 09/24/2023 6:32 PM FINDINGS: Gestation: Intrauterine gestation. MATERNAL: Cervix: Cervical length measures 4.06 cm. Cervix is closed measuring 4.79 cm. IMPRESSION: Cervix is closed measuring 4.79 cm. cranium is not imaged with confidence. Vertex presentation cannot be confirmed.
[2023-09-24 18:33] LABS: Basophils # 0.1 K/mm3 (0-0.2); Basophils % 0.5 % (0.1-2.0); Eosinophils % 0.2 % (0.1-12.0); Hemoglobin 12.7 g/dL (12.2-16.2); Lymphocytes # 2.3 K/mm3 (0.7-4.5); Lymphocytes % 20.9 % (10-50); Mean Corpuscular HGB Conc 36.2 g/dL (31.8-35.4); Mean Corpuscular Volume 102.3 fl (81-99); Mean Platelet Volume 8.5 fl (7.4-10.4); Monocytes # 0.6 K/mm3 (0.1-1.0); Monocytes % 5.2 % (1.7-9.3); Neutrophils # 8.1 K/mm3 (1.8-7.8); Neutrophils % 73.2 % (37.0-80.0); Platelet Count 181 K/mm3 (142-424); Red Blood Count 3.43 M/mm3 (4.20-5.40); Red Cell Distribution Width 14.3 % (11.5-17.5); White Blood Count 11.1 K/mm3 (4.8-10.8)
[2023-09-24 18:33] LABS: Benzodiazepines Screen,Urine Negative ng/ml (<200); Cannabinoid Screen,Urine Negative ng/ml (<50)
[2023-09-24 18:34] LABS: Chloride 113 mmol/L (98-107); Sodium 136 mmol/L (136-145)
[2023-09-24 18:34] LABS: Cocaine Screen,Urine Negative ng/ml (<300); Methadone Screen,Urine Negative ng/ml (<300)
[2023-09-24 18:35] LABS: Opiate Screen,Urine Negative ng/ml (<300)
[2023-09-24 18:35] LABS: Potassium 3.7 mmoL/L (3.5-5.1)
[2023-09-24 18:36] LABS: Phencyclidine Screen,Urine Negative ng/ml (<25)
[2023-09-24 18:37] LABS: Alanine Aminotransferase 16 U/L (12-78); Alkaline Phosphatase 99 U/L (38-126); Amylase 97 U/L (30-110); Anion Gap 6.7 mEq/L (5-15); Aspartate Amino Transferase 30 U/L (14-36); Bilirubin,Total 0.2 mg/dl (0.2-1.3); Blood Urea Nitrogen 7 mg/dl (7-17); Carbon Dioxide 20 mmol/L (22.0-30.0); Creatinine Clearance Estimated 220 mL/min (50-200); Estimated Glomerular Filt Rate 146 ml/min (>60); GFR (African American) 177 ML/MIN (>60)
[2023-09-24 18:38] LABS: Albumin Level 3.5 g/dl (3.5-5.0); Albumin/Globulin Ratio 1.1 (1.1-1.8); Calcium 8.8 mg/dl (8.4-10.2); Globulin 3.3 g/dL (1.3-3.2); Glucose 77 mg/dl (74-100); Lipase 129 U/L (23-300); Total Protein,Serum 6.8 g/dl (6.3-8.2)
[2023-09-24 19:04] LABS: Fetal Fibronectin (Rapid) Negative (Negative)
[2023-09-24] MEDS: PANTOPRAZOLE 40MG TABLET 40 MG PO (19:37)
[2023-09-24] MEDS: NIFEdipine 10MG CAPSULE 10 MG PO (21:19)
== END 2023-09-24 21:54 | disposition home or self-care (01) ==
LOC: OBOUT 17:14 → 2ND 17:15 → OB 17:21
PROVIDERS: PCP Family Medicine; Visit Provider Obstetrics & Gynecology
DX: O26.893 Other specified pregnancy related conditions, third trimester (principal); Z3A.30 30 weeks gestation of pregnancy; R10.31 Right lower quadrant pain
CPT/HCPCS: 76705; 76817; 80053; 80307; 81001; 82150; 82731; 83690; 85025; G0463; J7120

== ENCOUNTER 2023-11-04 10:26 | Outpatient (CLI) | payer OTHER, SELFPAY | END 2023-11-04 23:59 | disposition home or self-care (01) | LOC: LAB 10:26 | PROVIDERS: PCP Family Medicine; Visit Provider Obstetrics & Gynecology | DX: O36.1930 Maternal care for other isoimmunization, third trimester, not applicable or unspecified (principal); Z3A.36 36 weeks gestation of pregnancy | CPT/HCPCS: 36415; 86870 ==

== ENCOUNTER 2023-11-19 07:25 | Outpatient (CLI) | payer OTHER, SELFPAY ==
[2023-11-19 07:33] VITALS: BMI 34.5
[2023-11-19 07:39] LABS: Microscopic, Urine URINE MICROSCOPIC (MICROSCOPIC)
[2023-11-19 07:41] VITALS: BP 113/71; PULSE 105; RESP 18; TEMP 36.7; O2SAT 97; BMI 34.5
[2023-11-19 07:44] LABS: Appearance,Urine CLEAR (Clear); Bilirubin,Urine Negative (Negative); Blood, Urine Negative (Negative); Color,Urine YELLOW (Yellow); Glucose,Urine (UA) Negative (Negative); Ketones,Urine Negative (Negative); Leukocyte Esterase,Urine Negative (Negative); Nitrate,Urine Negative (Negative); Protein,Urine Negative (Negative); Urobilinogen,Urine 0.2 EU/dl (0.2)
[2023-11-19 07:55] LABS: Bacteria,Urine 1+ /lpf
[2023-11-19 08:09] LABS: Amphetamine/Metha Screen,Urine Negative ng/ml (<1000); Barbiturates Screen,Urine Negative ng/ml (<200)
[2023-11-19 08:10] LABS: Benzodiazepines Screen,Urine Negative ng/ml (<200)
[2023-11-19 08:11] LABS: Cannabinoid Screen,Urine Negative ng/ml (<50); Cocaine Screen,Urine Negative ng/ml (<300)
[2023-11-19 08:12] LABS: Methadone Screen,Urine Negative ng/ml (<300); Opiate Screen,Urine Negative ng/ml (<300)
[2023-11-19 08:13] LABS: Phencyclidine Screen,Urine Negative ng/ml (<25)
[2023-11-19] MEDS: LACTATED RINGERS 1000ML 1,000 ML 999 ML IV (08:48)
[2023-11-19 09:11] LABS: Basophils # 0.1 K/mm3 (0-0.2); Basophils % 0.5 % (0.1-2.0); Eosinophils # 0.1 K/mm3 (0.0-0.4); Eosinophils % 0.9 % (0.1-12.0); Hematocrit 40.3 % (37.0-47.0); Hemoglobin 13.4 g/dL (12.2-16.2); Lymphocytes % 18.8 % (10-50); Mean Corpuscular HGB Conc 33.3 g/dL (31.8-35.4); Mean Corpuscular Hemoglobin 33.6 pg (27.0-31.2); Mean Corpuscular Volume 100.8 fl (81-99); Mean Platelet Volume 9.8 fl (7.4-10.4); Monocytes # 0.7 K/mm3 (0.1-1.0); Monocytes % 6.3 % (1.7-9.3); Neutrophils % 73.6 % (37.0-80.0); Platelet Count 178 K/mm3 (142-424); Red Cell Distribution Width 13.9 % (11.5-17.5); White Blood Count 10.8 K/mm3 (4.8-10.8)
[2023-11-19 09:25] LABS: Alanine Aminotransferase 20 U/L (12-78); Albumin Level 3.5 g/dl (3.5-5.0); Alkaline Phosphatase 151 U/L (38-126); Anion Gap 7.4 mEq/L (5-15); Aspartate Amino Transferase 47 U/L (14-36); Blood Urea Nitrogen 8 mg/dl (7-17); Carbon Dioxide 21 mmol/L (22.0-30.0); Chloride 110 mmol/L (98-107); Creatinine Clearance Estimated 225 mL/min (50-200); Estimated Glomerular Filt Rate 146 ml/min (>60); GFR (African American) 177 ML/MIN (>60); Globulin 3.5 g/dL (1.3-3.2); Glucose 74 mg/dl (74-100); Potassium 4.4 mmoL/L (3.5-5.1); Sodium 134 mmol/L (136-145)
[2023-11-19] MEDS: ONDANSETRON 4MG/2ML VIAL 4 MG IV (09:50)
== END 2023-11-19 11:00 | disposition home or self-care (01) ==
LOC: OBOUT 07:27 → OB 07:27
PROVIDERS: PCP Family Medicine; Visit Provider Obstetrics & Gynecology
DX: O47.1 False labor at or after 37 completed weeks of gestation (principal); Z3A.38 38 weeks gestation of pregnancy
CPT/HCPCS: 80053; 80307; 81001; 85025; 86850; 86870; G0463; J2405; J7120

== ENCOUNTER 2023-11-25 04:43 | Inpatient (IN) | payer OTHER, SELFPAY ==
[2023-11-25] VITALS (9 sets, daily range): BP systolic 106–140; BP diastolic 64–75; PULSE 93–114; RESP 16–20; TEMP 36.3–37; O2SAT 98–100; BMI 34.5
[2023-11-25 05:34] LABS: Chloride 109 mmol/L (98-107); Potassium 3.8 mmoL/L (3.5-5.1); Sodium 132 mmol/L (136-145)
[2023-11-25 05:37] LABS: Anion Gap 4.8 mEq/L (5-15); Blood Urea Nitrogen 8 mg/dl (7-17); Carbon Dioxide 22 mmol/L (22.0-30.0); Creatinine Clearance Estimated 187 mL/min (50-200); Estimated Glomerular Filt Rate 118 ml/min (>60); GFR (African American) 143 ML/MIN (>60)
[2023-11-25 05:38] LABS: Calcium 9.1 mg/dl (8.4-10.2); Glucose 86 mg/dl (74-100)
[2023-11-25] MEDS: LACTATED RINGERS 1000ML 2,000 ML 999 ML IV (05:39)
[2023-11-25 06:07] LABS: Basophils % 0.3 % (0.1-2.0); Eosinophils # 0.1 K/mm3 (0.0-0.4); Eosinophils % 0.4 % (0.1-12.0); Hematocrit 40.1 % (37.0-47.0); Lymphocytes # 2.6 K/mm3 (0.7-4.5); Lymphocytes % 23.7 % (10-50); Mean Corpuscular HGB Conc 32.5 g/dL (31.8-35.4); Mean Corpuscular Hemoglobin 32.6 pg (27.0-31.2); Mean Corpuscular Volume 100.5 fl (81-99); Mean Platelet Volume 8.9 fl (7.4-10.4); Monocytes # 0.6 K/mm3 (0.1-1.0); Monocytes % 5.6 % (1.7-9.3); Neutrophils # 7.8 K/mm3 (1.8-7.8); Neutrophils % 70.1 % (37.0-80.0); Platelet Count 203 K/mm3 (142-424); Red Blood Count 3.99 M/mm3 (4.20-5.40); Red Cell Distribution Width 13.9 % (11.5-17.5); White Blood Count 11.1 K/mm3 (4.8-10.8)
[2023-11-25 07:32] LABS: POC Glucose,Bedside 81 (70-110)
--- NOTE | 2023-11-25 07:36 | EXP.HP ---
History of Present Illness *Admission Date: 11/25/23 *Reason for visit:: repeat delivery *History of present illness: Pretty Gage is a 28-year-old at 39 weeks and 3 days gestation who presented to labor and delivery for a scheduled delivery. Her has been complicated by GDMA1, Rh negative, GBS bacturia. On presentation patient endorsed good movement and denies any leakage of fluid or vaginal bleeding. NKDA. Previous surgerical hx reviewed significant for CSx1 at . O-, antibody positive: pending, rubella immune, hepatitis B negative, hepatitis C negative, RPR negative, HIV negative 1 hour GTT: 155 3 hour GTT: 76/798/180/140 #39weeks gestation #Previous CS, desires repeat. Declines sterlilzation - Monitor vitals - Admit to L&D for scheduled delivery - External FHR and TOCO monitor - O-, antibody positive: pending - Hemoglobin: 13.0, Plt: 203 - Plan for spinal anesthesia - Anticipate delivery of female : Holly #GDMA1 -DC accuchecks -follow up at 6wk for a 2 hour 75g GTT [facility] Disclaimer: The information contained in this section may have been updated after the patient was seen, as this information can be updated by other users. Medical History Gestational diabetes mellitus (GDM) Constipation in Screening for genetic disease carrier status 05/12/23 - [facility] carrier screen for 4 diseases tested including CF, Fragile X, SMA and DMD GBS bacteriuria GBS bacteriuria on initial Ob urine culture. Rh negative state in antepartum period Nausea/vomiting in Vaginal bleeding affecting early Asthma Migraine Dyspareunia Anxiety Surgical History History of surgery nipple History of wisdom tooth extraction History of Family History Father Diabetes Hypertension Hyperlipidemia Grandmother Hypertension Diabetes Thyroid disorder Social History Smoking Status: Never smoker alcohol intake: never substance use type: denies use current occupational status: employed Travel in the last 8 weeks: None household members: spouse and children housing: house Review of Systems Review of Systems Review of systems (narrative): Review of Systems Constitutional: Denies fever, chills, and sweats Eyes: Denies vision change/ pain Respiratory: Denies cough and shortness of breath Cardiovascular: Denies chest pain and lightheadedness Gastrointestinal: denies abdominal pain/ contractions. Denies nausea, vomiting. Genitourinary: Denies dysuria and incontinence Musculoskeletal: Denies shoulder pain and back pain Neurological: Denies change in speech or headaches Meds Home Medications and Allergies Home Medications ?Medication ?Instructions ?Recorded ?Confirmed ?Type vitamins no.121-iron 28 1 tab PO DAILY 12/30/22 11/25/23 History mg-folic acid 800 mcg tablet lancing device with lancets kit #1 ea 09/14/23 11/25/23 Rx (Accu-Chek Softclix Lancing Device+Lancets kit) blood-glucose meter (Accu-Chek #1 ea 09/24/23 11/25/23 History Guide Me Glucose Meter) blood sugar diagnostic (Accu-Chek #10 ea 10/07/23 11/25/23 Rx Guide test strips) pantoprazole 40 mg tablet,delayed 40 mg PO DAILY 30 days #30 tabs 10/26/23 11/25/23 Rx release lancets (Accu-Chek Softclix #100 ea 11/03/23 11/25/23 Rx Lancets) New Prescriptions to Start Prescriptions: Allergies Allergy/AdvReac Type Severity Reaction Status Date / Time No Known Allergies Allergy Verified 11/16/23 08:28 Exam Data for Last 24 hours Vital signs and Labs for Last 24 Hours: Temp Resp BP Pulse Ox O2 Del Method 98.5 F 20 110/75 100 Room Air 11/25/23 04:52 11/25/23 04:52 11/25/23 04:52 11/25/23 04:52 11/25/23 04:52 Laboratory Results - last 24 hr 11/25/23 05:10: WBC 11.1 H, RBC 3.99 L, Hgb 13.0, Hct 40.1, MCV 100.5 H, MCH 32.6 H, MCHC 32.5, RDW 13.9, Plt Count 203, MPV 8.9, Neut % (Auto) 70.1, Lymph % (Auto) 23.7, [place] % (Auto) 5.6, Eos % (Auto) 0.4, Baso % (Auto) 0.3, Neut # (Auto) 7.8, Lymph # (Auto) 2.6, [place] # (Auto) 0.6, Eos # (Auto) 0.1, Baso # (Auto) 0.0, Sodium 132 L, Potassium 3.8, Chloride 109 H, Carbon Dioxide 22, Anion Gap 4.8 L, BUN 8, Creatinine 0.60, Estimated Creat Clear 187, Estimated GFR 118, Est GFR ( Amer) 143, Glucose 86, Calcium 9.1, Blood Type O Negative, Antibody Screen Positive 11/25/23 07:25: POC Glucose 81 I & O for Last 24 hours: Intake & Output 11/22/23 11/23/23 11/24/23 11/25/23 23:59 23:59 23:59 23:59 Weight 189 lb Narrative: General: patient is alert oriented in no acute distress and responds appropriately to questions. HEENT: NCAT, EOMI, moist mucous membranes, neck supple with full ROM Cardiovascular: RRR +S1/S2, no murmurs or rubs Pulmonary: Clear to auscultation bilaterally, nonlabored breathing, symmetric chest rise Abdominal: Gravid abdomen appropriate for gestation. No guarding, rebound, or tenderness noted. Extremities: trace edema, no tenderness or cyanosis noted Skin: Normal turgor, intact, warm. Negative for erythema, pallor, petechia, or lesions Neurologic: Negative for sensory or motor deficit Psychiatric: Normal affect, normal thought process, good judgment and insight, no depression or anxious mood appreciated. *Routine HEENT Exam Head: Present normocephalic and atraumatic Eye: Present EOMI, PERRL and normal accommodation; Absent conjunctival icterus, scleral injection, nystagmus or exophthalmos ENT: Present mucous membranes moist *Routine Respiratory Exam Respiratory: Present CTA bilaterally, normal respiratory effort, able to speak in complete sentences and symmetric chest movement; Absent accessory muscle use, decreased breath sounds, rales, respiratory distress, wheezes, distant breath sounds or diminished air movement *Routine Cardiovascular Exam Cardiovascular: Present RRR, Normal S1 and Normal S2; Absent murmur or gallop *Routine Abdominal Exam Abdominal: Present soft and normoactive bowel sounds; Absent tenderness, distended, rebound or guarding *Routine Rectal Exam Rectal:: deferred *Routine Genitalia Exam Genitalia:: normal female Assessment and Plan *Assessment and plan (1) Gestational diabetes mellitus (GDM): Status: Acute Qualifiers: Gestational diabetes mellitus control: diet-controlled Category: Medical Code(s): O24.419 - Gestational diabetes mellitus in , unspecified control (2) : Status: Acute Qualifiers: Weeks of gestation: 27 weeks Qualified Code(s): Z3A.27 - 27 weeks gestation of Category: Medical Code(s): Z34.90 - Encounter for supervision of normal , unspecified, unspecified trimester (3) GBS bacteriuria: Problem Comment: GBS bacteriuria on initial Ob urine culture. Status: Acute Category: Medical Code(s): R82.71 - Bacteriuria (4) Rh negative state in antepartum period: Status: Acute Category: Medical Code(s): O26.899 - Other specified related conditions, unspecified trimester; Z67.91 - Unspecified blood type, Rh negative (5) History of : Status: Acute Category: Surgical Code(s): Z98.891 - History of uterine scar from previous surgery (6) delivery delivered: Status: Acute Category: Medical Code(s): O82 - Encounter for delivery without indication Plan #39weeks gestation #Previous CS, desires repeat. Declines sterilization - Monitor vitals - Admit to L&D for scheduled delivery - External FHR and TOCO monitor - O-, antibody positive: pending - Hemoglobin: 13.0, Plt: 203 - Plan for spinal anesthesia - Anticipate delivery of female infant: Holly #GDMA1 -DC accuchecks -follow up at 6wk for a 2 hour 75g GTT
[2023-11-25] MEDS: CEFAZOLIN SODIUM 2 GM in 0.9 % SODIUM CHLORIDE 100 ML IV (07:45)
--- NOTE | 2023-11-25 08:36 | P.CONPHA_ITS ---
Pharmacy Intervention Comments: MEDICATION RECONCILIATION COMPLETED ON PATIENT USING LIST FROM PATIENT FINANCIAL SERVICES COORDINATOR OFFICE. -ADELITA HUFF, VERONICAD
--- NOTE | 2023-11-25 08:36 | HMH.PHAINT1 ---
Pharmacy Intervention Comments: MEDICATION RECONCILIATION COMPLETED ON PATIENT USING LIST FROM ARCHITECT IN TRAINING OFFICE. -ADELITA HUFF, VERONICAD
[2023-11-25 08:49] LABS: Microscopic, Urine URINE MICROSCOPIC (MICROSCOPIC)
[2023-11-25 09:00] LABS: Appearance,Urine CLEAR (Clear); Bilirubin,Urine Negative (Negative); Blood, Urine Negative (Negative); Color,Urine YELLOW (Yellow); Glucose,Urine (UA) Negative (Negative); Ketones,Urine Negative (Negative); Leukocyte Esterase,Urine Negative (Negative); Nitrate,Urine Negative (Negative); PH,Urine 7.5 (5.0-8.5); Protein,Urine Negative (Negative); Urobilinogen,Urine 0.2 EU/dl (0.2)
--- NOTE | 2023-11-25 09:11 | EXP.OP.NOTE ---
Date of procedure: 11/25/23 Pre-op Diagnosis:: 1. 39 weeks 3days gestation, [place] 2. Previous Delivery, desires repeat 3. GBS bacteria 4. Rh- 5. Gestational diabetes, diet-controlled Post-op Diagnosis:: 1. 39 weeks 3days gestation, [place] 2. Previous Delivery, desires repeat 3. GBS bacteria 4. Rh- 5. Gestational diabetes, diet-controlled Procedure performed:: Repeat Delivery Surgeon:: Kassandra Guerra DO Catcher Helper(s):: Aneesh Juan MD INDUSTRIAL ELECTRICIAN:: Lorena Thurman Anesthesia: spinal Estimated blood loss (mL): 650 Operative findings:: 1. Live viable female : Holly. Weight: 7pounds 9ounces. Apgars 7 and 8 at 1 and 5 minutes respectively 2. Normal-appearing fallopian tubes and ovaries bilaterally 3. Significant scar tissue with the bladder being adherent to the anterior uterine wall almost to the fundus 4. Very thin, almost transparent uterine window Operative note:: Medications: 2 g of Ancef Procedure: 1. Repeat delivery 2. Adhesiolysis Summary: Procedure explained in its entirety. The patient was counseled on the risks and benefits of section including bleeding, vascular injury, infection, and injury to the surrounding structures. Hemorrhage requiring life saving blood transfusion resulting in blood born viral infection or allergic reaction was explained and the patient consented to blood transfusion. Possible need for further operative measures prolonging recovery time and hospitalization reviewed to include hysterectomy. Procedure explained in its entirety and patient had no further questions. Consented to procedure. The patient was taken back to the operating room where adequate spinal anesthesia was obtained. Pneumatic compression stockings applied to lower extremities. Ancef 2g was given for infection prophylaxis. She was placed in the dorsal supine position Urinary catheter was placed and found to be draining clear urine. The patient was prepped and draped in sterile fashion. Anesthesia was tested and and found to be adequate. A Pfannenstiel skin incision was made with the scalpel. Subcutaneous bleeding vessels were cauterized with the bovie. The incision was taken down to the fascia with the bovie. The fascia was knicked in the midline and sharply extended laterally. Up until this point in the surgery there was virtually no significant adhesions of the tissue. The superior aspect of the fascia was grasped with Maria Alejandra clamps and the rectus muscle was taken down with the Bovie. The rectus muscle was sharply dissected from the midline with Mayos. This process was repeated inferiorly. The rectus muscles were in the midline, at this point is when significant it adhesions were noted. Abdominal access was difficult. Given significant adhesions we were initially preperitoneal. It was noted that the bladder was adherent to the anterior uterine wall. These adhesions were carefully and sharply taken down. During adhesiolysis which took approximately 30 minutes peritoneal access was achieved. Harjit O retractor was placed and the bladder was noted to be out of the operative field. A very thin uterine window was noted and the bladder was previously taken down and noted to be distal from the operative field. The lower uterine segment was sharply incised, and entered bluntly with the surgeon's index finger. Incision was then extended in a superior and inferior fashion by blunt separation. Membranes were ruptured revealing clear fluid. The fetus was in cephalic presentation. The head was carefully elevated out of the pelvis. Fundal pressure was applied when head was brought into incision. The infants head was delivered without difficulty. The shoulder and body followed without complication. Delivery occurred at 0807. The mouth and nose were suctioned with a bulb, however the was felt to still have fluid in the airway. Infant was shown to the parents, the umbilical cord was clamped and cut. was taken to warmer for evaluation by the machine operator cane cutter, Dr. Perez. Cord blood was collected. The placenta was delivered via fundal massage and IV Pitocin was initiated. Inside of the uterus was gently cleared of blood and clots with lap sponge. The hysterotomy was closed with 0 Vicryl in a running locked fashion. The bladder serosal edge was still bleeding and imbricated with a locking stitch into the hysterotomy. The mid to fundal anterior wall of the uterus was noted to be bleeding from the extensive adhesiolysis. It was made hemostatic with a running locking stitch and cautery. The broad ligament on the patients left was noted to be sepatated but very hemostatic. The gutters and posterior aspect of the uterus were inspected bilaterally and cleared of blood and clots with lap sponges. The uterine incision was reinspected and hemostasis noted. Harjit O retractor was removed. Bladder blade was placed and hemostasis was again noted. The area was covered with Surgicel powder. The peritoneum was reapproximated using a 2-0 Monocryl in a nonlocked running fashion. The peritoneum was unable to be identified at all borders so there was a mass closure with the rectus muscle as well. The rectus muscle was noted to have some bleeding and was made hemostatic with Bovie cautery as well as a second Surgicel powder. The fascia was closed in a running nonlocked fashion using 0 Vicryl x2 meeting right of midline. Fascia was noted as not having gaps or defects. The subcutaneous fat was closed with 2-0 Monocryl interrupted sutures x3. Skin was closed with the INSORB suture in a subcuticular fashion. Patient tolerated the procedure well and all counts were correct x3, per nursing. Patient will receive tap blocks and then be transported to the OB PACU for recovery and infant bonding. Condition: stable Disposition: PACU Complications:: None
[2023-11-25 09:12] LABS: Barbiturates Screen,Urine Negative ng/ml (<200)
[2023-11-25 09:13] LABS: Amphetamine/Metha Screen,Urine Negative ng/ml (<1000); Benzodiazepines Screen,Urine Negative ng/ml (<200)
[2023-11-25 09:14] LABS: Cannabinoid Screen,Urine Negative ng/ml (<50)
--- NOTE | 2023-11-25 09:14 | EXP.ANES.I ---
[facility] Anesthesia Record Part I Anesthesia Record I Intake, IV Amount: 1,300 Hydration: Adequate Estimated blood loss (mL): 600 Urine output (mL): 400 Blood Pressure: 112/68 SaO2: 99 Pulse Rate: 102 Airway Patency: Patent Respiratory Rate: 16 Temperature: 97.4 F Patient is:: Awake (Talking) and Stable Stable to PACU at:: 09:10
[2023-11-25 09:15] LABS: Cocaine Screen,Urine Negative ng/ml (<300); Methadone Screen,Urine Negative ng/ml (<300)
[2023-11-25 09:17] LABS: Opiate Screen,Urine Negative ng/ml (<300)
[2023-11-25 09:18] LABS: Phencyclidine Screen,Urine Negative ng/ml (<25)
[2023-11-25 09:28] LABS: Bacteria,Urine 1+ /lpf
[2023-11-25 09:33] LABS: Microscopic,Cath URINE MICROSCOPIC (MICROSCOPIC)
[2023-11-25] MEDS: OXYTOCIN/RINGERS LACTATE 30 UNITS/500 ML BAG 999 UNITS IV (10:00)
[2023-11-25] MEDS: OXYTOCIN/RINGERS LACTATE 30 UNITS/500 ML BAG 40 UNITS IV (10:15)
[2023-11-25 10:16] LABS: Appearance,Urine/Cath CLEAR (Clear); Bilirubin,Cath Negative (Negative); Blood, Urine/Cath Negative (Negative); Color,Urine/Cath YELLOW (Yellow); Glucose,Urine/Cath (UA) Negative (Negative); Ketones,Urine/Cath 1+ (Negative); Leukocyte Esterase,Cath Negative (Negative); Nitrate,Cath Negative (Negative); Protein,Urine/Cath Negative (Negative); Urobilinogen,Cath 0.2 EU/dl (0.2)
[2023-11-25] MEDS: KETOROLAC 30MG/ML VIAL 30 MG IV ×2 (12:18→18:24)
[2023-11-25] MEDS: ACETAMINOPHEN 500MG TAB 1000 MG PO ×2 (12:18→18:24)
[2023-11-25] MEDS: SENNA 8.6MG TABLET 8.6 MG PO (13:17)
[2023-11-25] MEDS: OXYCODONE 5MG IMMEDIATE RELEASE TABLET 5 MG PO ×3 (13:18→21:07)
--- NOTE | 2023-11-25 13:25 | P.PNANES_ITS ---
[facility] Anesthesia Record Part II Anesthesia Record Part II Discharge Time: 09:35 Destination: Obstetric PACU nurse assessment reviewed?: Yes Patient Condition:: Good Anesthesia Complications:: None Swallowing reflex intact?: Yes Airway Patency: Patent Cyanosis?: No Blood Pressure: 125/68 SaO2: 99 Respiratory Rate: 18 Pulse Rate: 114 Temperature: 98.1 F Mental Status: Alert & Oriented Pain level:: 0 Nausea and/or vomitting:: None Intake, IV Amount: 1,300 Hydration: Adequate
[2023-11-25] MEDS: PRENATAL MULTIVITAMIN W/IRON 1 EACH PO (16:53)
[2023-11-25] MEDS: SIMETHICONE 80MG CHEWABLE TABLET 160 MG PO (21:07)
[2023-11-26] MEDS: ACETAMINOPHEN 500MG TAB 1000 MG PO ×4 (00:05→18:08)
[2023-11-26] MEDS: LANOLIN CREAM 40GM TP (00:05)
[2023-11-26] MEDS: KETOROLAC 30MG/ML VIAL 30 MG IV ×2 (00:06→06:08)
[2023-11-26] MEDS: OXYCODONE 5MG IMMEDIATE RELEASE TABLET 5 MG PO ×4 (02:09→20:54)
[2023-11-26 04:22] VITALS: BP 99/55; PULSE 88; RESP 18; TEMP 37.1; O2SAT 98
[2023-11-26] MEDS: SENNA 8.6MG TABLET 8.6 MG PO ×2 (06:08→18:08)
[2023-11-26 07:23] LABS: Glucose,Fasting 66 mg/dl (74-100)
[2023-11-26 07:30] LABS: Basophils # 0.1 K/mm3 (0-0.2); Basophils % 0.4 % (0.1-2.0); Eosinophils # 0.1 K/mm3 (0.0-0.4); Eosinophils % 0.4 % (0.1-12.0); Hematocrit 33.8 % (37.0-47.0); Hemoglobin 10.7 g/dL (12.2-16.2); Lymphocytes # 2.8 K/mm3 (0.7-4.5); Lymphocytes % 25.1 % (10-50); Mean Corpuscular HGB Conc 31.7 g/dL (31.8-35.4); Mean Corpuscular Hemoglobin 32.9 pg (27.0-31.2); Mean Corpuscular Volume 103.9 fl (81-99); Mean Platelet Volume 10.1 fl (7.4-10.4); Monocytes # 0.8 K/mm3 (0.1-1.0); Monocytes % 7.4 % (1.7-9.3); Neutrophils # 7.3 K/mm3 (1.8-7.8); Neutrophils % 66.6 % (37.0-80.0); Platelet Count 184 K/mm3 (142-424); Red Blood Count 3.25 M/mm3 (4.20-5.40); Red Cell Distribution Width 14.1 % (11.5-17.5)
[2023-11-26 07:40] VITALS: BP 122/67; PULSE 83; RESP 20; TEMP 37; O2SAT 100
[2023-11-26] MEDS: SIMETHICONE 80MG CHEWABLE TABLET 160 MG PO ×2 (07:41→18:07)
[2023-11-26] MEDS: IBUPROFEN 400 MG TABLET 800 MG PO ×2 (12:03→19:50)
[2023-11-26 12:35] LABS: Rapid Plasma Reagin Ab Titer Non Reactive titer (NonRea<1:1)
--- NOTE | 2023-11-26 17:11 | EXP.PN ---
Subjective *Date: 11/26/23 *Time: 17:11 Interval history: Pretty Rosenberg is a G2, P2 day #1 following a repeat delivery at 39 weeks and 3 days gestation. Routine delivery and course. She is doing well, sitting up in bed. Reports she has passed flatus -Reports pain is well-controlled -Reports she is tolerating p.o. without nausea or vomiting. -Reports her lochia is scant. -Ambulating, voiding difficulty or dysuria. Denies chest pain shortness of breath or pain in her legs. No further complaints at this time. Exam Data for Last 24 hours Vital signs and Labs for Last 24 Hours: Temp Pulse Resp BP Pulse Ox O2 Del Method 98.6 F 83 20 122/67 100 Room Air 11/26/23 07:40 11/26/23 07:40 11/26/23 07:40 11/26/23 07:40 11/26/23 07:40 11/26/23 07:40 Laboratory Results - last 24 hr 11/25/23 05:10: RPR Titer Non reactive, Antibody Identification Anti-D 11/26/23 06:22: WBC 11.0 H, RBC 3.25 L, Hgb 10.7 L, Hct 33.8 L, MCV 103.9 H, MCH 32.9 H, MCHC 31.7 L, RDW 14.1, Plt Count 184, MPV 10.1, Neut % (Auto) 66.6, Lymph % (Auto) 25.1, [place] % (Auto) 7.4, Eos % (Auto) 0.4, Baso % (Auto) 0.4, Neut # (Auto) 7.3, Lymph # (Auto) 2.8, [place] # (Auto) 0.8, Eos # (Auto) 0.1, Baso # (Auto) 0.1, Fasting Glucose 66 L, Screen Negative, Baby's Rh Status Positive I & O for Last 24 hours: Intake & Output 11/23/23 11/24/23 11/25/23 11/26/23 23:59 23:59 23:59 23:59 Intake Total 4100 / 4100 Output Total 3000 / 3000 1500 / 1500 Balance 1100 / 1100 -1500 / -1500 Weight 189 lb Narrative: General: patient is alert oriented in no acute distress and responds appropriately to questions. Appears to be in minimal pain. Sitting up in the chair and doing well HEENT: NCAT, EOMI, moist mucous membranes, neck supple with full ROM Cardiovascular: RRR +S1/S2, no murmurs or rubs Pulmonary: Clear to auscultation bilaterally, nonlabored breathing, symmetric chest rise Abdominal: Fundus at the umbilicus, firm, and tenderness appropriate for the period. Extremities: trace edema, no tenderness or cyanosis noted Skin: Normal turgor, intact, warm. Negative for erythema, pallor, petechia, or lesions. skin incision is still covered with dressing from surgery. No signs of bleeding on the bandage noted Neurologic: Negative for sensory or motor deficit Psychiatric: Normal affect, normal thought process, good judgment and insight, no depression or anxious mood appreciated. Assessment and Plan *Assessment and plan (1) delivery delivered: Status: Acute Category: Medical Code(s): O82 - Encounter for delivery without indication (2) Gestational diabetes mellitus (GDM): Status: Acute Qualifiers: Gestational diabetes mellitus control: diet-controlled Category: Medical Code(s): O24.419 - Gestational diabetes mellitus in , unspecified control Plan Stable. POD#1 s/p RLTCS -Doing well. VSS. Serial lochia and fundal checks. -Continue with perineal ice packs for discomfort -Hemoglobin: 13.0--> 10.7 -O-/antibody positive: Anti-D -female -Contraception: undecided -Follow-up 2 weeks for routine visit -Dispo: home in 1-3 days pending mother/infant status -Goals for today: Increased ambulation, shower and removal of bandage, management of pain, bonding with #GDMA1 -DC accuchecks -follow up at 6wk for a 2 hour 75g GTT
[2023-11-26] MEDS: PRENATAL MULTIVITAMIN W/IRON 1 EACH PO (18:07)
[2023-11-26 18:10] VITALS: BP 125/74; PULSE 81; RESP 17; TEMP 36.6; O2SAT 98
[2023-11-26] MEDS: RHO(D) IMMUNE GLOBULIN 1,500 UNIT (300MCG) SYRINGE 300 MCG IM (18:50)
[2023-11-26 19:40] VITALS: BP 114/66; PULSE 96; RESP 18; TEMP 36.7; O2SAT 97
[2023-11-27] MEDS: ACETAMINOPHEN 500MG TAB 1000 MG PO ×2 (01:19→05:48)
[2023-11-27] MEDS: SIMETHICONE 80MG CHEWABLE TABLET 160 MG PO (01:20)
[2023-11-27] MEDS: IBUPROFEN 400 MG TABLET 800 MG PO (03:16)
[2023-11-27] MEDS: OXYCODONE 5MG IMMEDIATE RELEASE TABLET 5 MG PO ×2 (03:17→09:58)
[2023-11-27 03:37] VITALS: BP 115/71; PULSE 83; RESP 18; TEMP 36.6
[2023-11-27] MEDS: SENNA 8.6MG TABLET 8.6 MG PO (05:48)
[2023-11-27] MEDS: WITCH HAZEL 40 PADS/BOX 1 EACH TP (05:49)
[2023-11-27 08:42] VITALS: BP 116/81; PULSE 90; RESP 18; TEMP 36.9; O2SAT 99
--- NOTE | 2023-11-27 09:07 | P.DS_ITS ---
General Admission date:: 11/25/23 Discharge date: 11/27/23 HPI HPI HPI: Pretty Gage is a 28-year-old at 39 weeks and 3 days gestation who presented to labor and delivery for a scheduled delivery. Her has been complicated by GDMA1, Rh negative, GBS bacturia. On presentation patient endorsed good movement and denies any leakage of fluid or vaginal bleeding. NKDA. Previous surgerical hx reviewed significant for CSx1 at . O-, antibody positive: pending, rubella immune, hepatitis B negative, hepatitis C negative, RPR negative, HIV negative 1 hour GTT: 155 3 hour GTT: 76/798/180/140 Hospital Course Hospital Course Hospital Course: Pretty Rosenberg is a postop day #2 from a repeat delivery at 39 weeks and 3 days gestation. She delivered on 11/25/2023 at 807. She delivered a female who weighed 7 pounds 9 ounces and was 18-1/2 inch. She is breast- feeding. Apgars were 7 and 8. Her blood type is O-. GBS was positive. Rubella immune. She is doing well. Ambulating, tolerating p.o., passing gas, and voiding. She has no questions or concerns. Patient desires discharge home. Routine discharge instructions reviewed with patient in detail and she was understanding. Written instructions were also provided. Patient reports that she does have a history of anxiety. Reviewed baby blues and depression in detail with the patient and encouraged her to call the office should she have any severe exacerbations. Exam Data for Last 24 hours Vital signs and Labs for Last 24 Hours: Temp Pulse Resp BP Pulse Ox O2 Del Method 98 F 83 18 115/71 97 Room Air 11/27/23 03:37 11/27/23 03:37 11/27/23 03:37 11/27/23 03:37 11/26/23 19:40 11/26/23 19:40 Laboratory Results - last 24 hr 11/25/23 05:10: RPR Titer Non reactive 11/26/23 06:22: Screen Negative, Baby's Rh Status Positive I & O for Last 24 hours: Intake & Output 11/24/23 11/25/23 11/26/23 11/27/23 23:59 23:59 23:59 23:59 Intake Total 4100 / 4100 Output Total 3000 / 3000 1500 / 1500 Balance 1100 / 1100 -1500 / -1500 Weight 189 lb Narrative: General: patient is alert oriented in no acute distress and responds appr opriately to questions. Appears to be in minimal pain. Sitting up in the chair and doing well HEENT: NCAT, EOMI, moist mucous membranes, neck supple with full ROM Cardiovascular: RRR +S1/S2, no murmurs or rubs Pulmonary: Clear to auscultation bilaterally, nonlabored breathing, symmetric chest rise Abdominal: Fundus below the umbilicus, firm, and tenderness appropriate for the period. decreased bowel sounds in all 4 quadrants. Extremities: trace edema, no tenderness or cyanosis noted Skin: Normal turgor, intact, warm. Negative for erythema, pallor, petechia, or lesions. Well healing Pfannenstiel skin incision. No signs of bleeding on the bandage noted Neurologic: Negative for sensory or motor deficit Psychiatric: Normal affect, normal thought process, good judgment and insight, no depression or anxious mood appreciated. Results Data Completed and Pending Labs on day of discharge: Labs from last 24 hours 11/26/23 11/25/23 06:22 05:10 RPR Titer Non reactive Screen Negative Baby's Rh Status Positive DS: Diagnosis Discharge Diagnosis (1) delivery delivered: Status: Acute Code(s): O82 - Encounter for delivery without indication (2) Gestational diabetes mellitus (GDM): Status: Acute Code(s): O24.419 - Gestational diabetes mellitus in , unspecified control Qualifiers: Gestational diabetes mellitus control: diet-controlled Meds Home Medications and Allergies Home Medications ?Medication ?Instructions ?Recorded ?Confirmed ?Type vitamins no.121-iron 28 1 tab PO DAILY 12/30/22 11/25/23 History mg-folic acid 800 mcg tablet pantoprazole 40 mg tablet,delayed 40 mg PO DAILY 30 days #30 tabs 10/26/23 11/25/23 Rx release acetaminophen 500 mg tablet 500 mg PO Q6H PRN fever or pain 11/27/23 Rx #30 tabs ferrous sulfate 325 mg (65 mg 325 mg PO DAILY #30 tabs 11/27/23 Rx iron) tablet,delayed release ibuprofen 800 mg tablet 800 mg PO Q8H PRN pain #60 tabs 11/27/23 Rx oxycodone 5 mg tablet 5 mg PO Q8H PRN pain #20 tabs 11/27/23 Rx sennosides 8.6 mg tablet (Senna 8.6 mg PO BIDP PRN Constipation 11/27/23 Rx Lax) #60 tabs simethicone 125 mg tablet 125 mg PO DAILY PRN abdominal 11/27/23 Rx distention #60 tabs New Prescriptions to Start Prescriptions: acetaminophen Charlie,Kassandra ferrous sulfate Charlie,Kassandra ibuprofen Charlie,Kassandra oxycodone Charlie,Kassandra sennosides [Senna Lax] Charlie,Kassandra simethicone Kassandra Guerra Allergies Allergy/AdvReac Type Severity Reaction Status Date / Time No Known Allergies Allergy Verified 11/16/23 08:28 Discharge Plan Disposition Patient Disposition: Home, Self-Care Discharge Order Discharge Orders: Discharge Order (Routine); Ordered 11/27/23 Ordered By: Kassandra Guerra Follow up Plan Follow up with: Sulema Khan DO [Staff Physician] - 12/08/23 10:00 am Prescriptions/Medication Reconciliation: New acetaminophen 500 mg tablet 500 mg PO Q6H PRN (Reason: fever or pain) Qty: 30 3RF sennosides [Senna Lax] 8.6 mg Tablet 8.6 mg PO BIDP PRN (Reason: Constipation) Qty: 60 2RF ibuprofen 800 mg tablet 800 mg PO Q8H PRN (Reason: pain) Qty: 60 2RF ferrous sulfate 325 mg (65 mg iron) tablet,delayed release (DR/EC) 325 mg PO DAILY Qty: 30 3RF oxycodone 5 mg tablet 5 mg PO Q8H PRN (Reason: pain) Qty: 20 0RF simethicone 125 mg tablet 125 mg PO DAILY PRN (Reason: abdominal distention) Qty: 60 2RF Continued PNV no.611-vqqk-bdyix acid 28 mg iron- 800 mcg tablet 1 tab PO DAILY pantoprazole 40 mg tablet,delayed release (DR/EC) 40 mg PO DAILY 30 Days Qty: 30 2RF Discontinued (DME) Accu-Chek Guide test strips Strip See Rx Instructions .ROUTE .MEDSUPPLY Qty: 10 0RF Rx Instructions: As directed (DME) blood-glucose meter [Accu-Chek Guide Me Glucose Mtr] Misc See Rx Instructions .ROUTE .MEDSUPPLY Qty: 1 Rx Instructions: As directed (DME) lancing device with lancets [Accu-Chek Soft Dev Lancets] Kit See Rx Instructions .Route Qty: 1 0RF Rx Instructions: 4x Daily (DME) lancets [Accu-Chek Softclix Lancets] [facility] See Rx Instructions .ROUTE .COMPLEX Qty: 100 0RF Dose Instruction: DIRECTED Rx Instructions: DIRECTED Problem Reconciliation Problems Reviewed?: Yes Patient Discharge Instructions ACTIVITY: Continue current activity DIET: regular diet Additional Instructions: Congratulations on the delivery of your sweet baby girl. It is my privilege to be part of your [employer] team and I am so thankful I could be a part of your special day. Discharge: -Take 800 mg Ibuprofen every 8 hours as needed for pain. You can also take 500- 1000 mg of Tylenol in between doses, every 6-8 hours. -Colace can be taken 1-2 times per day as you need to soften your stool. Make sure to drink at least 8 cups of water per day. -Iron supplements can make you constipated. You can take iron tablets every other day if constipation is too bad. -Nothing in the vagina for 6 weeks - no intercourse, douching, tampons. No tub baths or swimming pools. -Do not lift greater than 20pounds for 2 weeks, this is the equivalent of 2 gallons of milk. -Reasons to return to L&D or call On-Call doctor - fever (greater than 100.4) - heavy vaginal bleeding (soaking through 1 pad in less than 2 hours or passing clots that are egg sized) - vaginal discharge (malodorous and/or purulent) - severe headaches, leg tenderness/edema, or any other symptoms that warrant immediate medical attention. depression/blues - Normal to feel anxious/overwhelmed for first 2 weeks - Talk to your doctor if: anxiety lasts over 2 weeks, trouble bonding with baby, withdrawing from other family members, thoughts of harming yourself or others Kassandra Guerra DO [facility] [phone] *Nothing in the Vagina for 6 weeks* *No strenuous activity* *No heavy lifting* *No tub baths until okay's by MD* Patient Instructions: Depression, Hemorrhage, DI for , DI for Pre-eclampsia, [facility] Post Discharge Instructions Print Language: [place] Providers Primary Care Provider: Eran Campoverde Admit Provider: Aneesh Juan Attending Provider: Aneesh Juan
== END 2023-11-27 10:35 | disposition home or self-care (01) | DRG 788 ==
PROVIDERS: Obstetrics & Gynecology; Admitting Provider Nurse Practitioner Obstetrics & Gynecology; PCP Family Medicine; Visit Provider Nurse Practitioner Obstetrics & Gynecology
PROC: (CPT 59514; principal; 2023-11-25 07:30)
DX: O24.410 Gestational diabetes mellitus in pregnancy, diet controlled (principal); Z3A.39 39 weeks gestation of pregnancy; O34.211 Maternal care for low transverse scar from previous cesarean delivery; N85.8 Other specified noninflammatory disorders of uterus; Z37.0 Single live birth; N73.6 Female pelvic peritoneal adhesions (postinfective); R82.71 Bacteriuria
CPT/HCPCS: 36415; 59025; 80048; 80307; 81001; 82947; 82962; 85025; 85461; 86593; 86850; 86870; 94761; C9290; G0283; J1100; J1200; J1885; J2405; J2790; J3010; J7120

== ENCOUNTER 2024-01-06 10:01 | Outpatient (CLI) | payer OTHER, SELFPAY ==
--- NOTE | 2024-01-06 11:53 | PC.NURSE ---
[phone] Pretty Chet Gage is here for a consult to check for growth. Reports milk is in and has a good supply. Reports forceful letdown. Adequate diapers reported and good infant growth. took around 2 ounces during a weighted feed. Good latch noted and relaxed happy after feeding. Tips/ information given on forceful letdown and oversupply. is up over 2 lbs from weight. All questions were answered. Will follow up with phone call next week, and mother encouraged to call back if she needed to be seen again or had quesitons.
== END 2024-01-06 10:40 | disposition home or self-care (01) ==
LOC: OBOUT 10:03 → OB 10:03
PROVIDERS: PCP Family Medicine; Visit Provider Nurse Practitioner Obstetrics & Gynecology
DX: Z39.1 Encounter for care and examination of lactating mother (principal)

== ENCOUNTER 2024-02-25 14:45 | Outpatient (CLI) | payer OTHER, SELFPAY ==
[2024-02-25 16:56] LABS: Alanine Aminotransferase 24 U/L (12-78); Albumin Level 5.2 g/dl (3.5-5.0); Albumin/Globulin Ratio 1.7 (1.1-1.8); Alkaline Phosphatase 87 U/L (38-126); Anion Gap 15.6 mEq/L (5-15); Aspartate Amino Transferase 39 U/L (14-36); Bilirubin,Total 0.6 mg/dl (0.2-1.3); Blood Urea Nitrogen 17 mg/dl (7-17); Calcium 10.3 mg/dl (8.4-10.2); Carbon Dioxide 29 mmol/L (22.0-30.0); Chloride 101 mmol/L (98-107); Estimated Glomerular Filt Rate 74 ml/min (>60); GFR (African American) 89 ML/MIN (>60); Glucose 72 mg/dl (74-100); Potassium 4.6 mmoL/L (3.5-5.1); Sodium 141 mmol/L (136-145); Total Protein,Serum 8.2 g/dl (6.3-8.2); Uric Acid 4.8 mg/dl (2.5-6.2)
[2024-02-25 17:01] LABS: C-Reactive Protein 10.7 mg/L (0-4)
[2024-02-25 17:10] LABS: Basophils % 0.5 % (0.1-2.0); Hematocrit 43.4 % (37.0-47.0); Hemoglobin 14.8 g/dL (12.2-16.2); Lymphocytes % 35.2 % (10-50); Mean Corpuscular HGB Conc 34.1 g/dL (31.8-35.4); Mean Corpuscular Hemoglobin 31.4 pg (27.0-31.2); Mean Corpuscular Volume 92.1 fl (81-99); Mean Platelet Volume 10.7 fl (7.4-10.4); Monocytes % 6.2 % (1.7-9.3); Platelet Count 261 K/mm3 (142-424); Red Blood Count 4.71 M/mm3 (4.20-5.40); Red Cell Distribution Width 12.6 % (11.5-17.5); White Blood Count 7.9 K/mm3 (4.8-10.8)
[2024-02-25 17:11] LABS: Eosinophils # 0.1 K/mm3 (0.0-0.4); Lymphocytes # 2.8 K/mm3 (0.7-4.5); Monocytes # 0.5 K/mm3 (0.1-1.0); Neutrophils # 4.5 K/mm3 (1.8-7.8)
[2024-02-25 18:32] LABS: Erythrocyte Sedimentation Rate 3 mm/hr (0-20)
[2024-02-26 07:08] LABS: RA Latex Turbid. 12.5 IU/mL (<14.0)
[2024-02-26 12:08] LABS: Anti-Centromere B Antibodies <0.2 AI (0.0-0.9); Anti-DNA (DS) Ab Qn <1 IU/mL (0-9); Anti-Jo-1 <0.2 AI (0.0-0.9); Anti-Smith Antibody <0.2 AI (0.0-0.9); Antichromatin Antibodies <0.2 AI (0.0-0.9); Antiscleroderma-70 Antibodies <0.2 AI (0.0-0.9); RNP Antibodies 0.6 AI (0.0-0.9); Sjogren's Anti-SS-A <0.2 AI (0.0-0.9); Sjogren's Anti-SS-B <0.2 AI (0.0-0.9)
[2024-02-26 13:33] LABS: T4 (Thyroxine) 7.6 ug/dl (5.53-11.0)
[2024-02-26 13:47] LABS: Thyroid Stimulating Hormone 1.81 uIU/mL (0.465-4.68)
[2024-02-26 14:35] LABS: 25-OH Vitamin D, Total 64.5 ng/mL (30-100)
[2024-02-28 10:05] LABS: Antinuclear Antibodies, IFA POSITIVE
== END 2024-02-25 23:59 | disposition home or self-care (01) ==
LOC: LAB.DROPOF 02-29 10:03
PROVIDERS: PCP Family Medicine; Visit Provider Family Medicine
DX: R53.83 Other fatigue (principal); M25.50 Pain in unspecified joint
CPT/HCPCS: 80050; 80053; 82306; 84436; 84443; 84550; 85025; 85651; 86038; 86140; 86225; 86235; 86431

== ENCOUNTER 2024-08-05 09:13 | Emergency (ER) | payer OTHER, SELFPAY ==
[2024-08-05] VITALS (8 sets, daily range): BP systolic 91–122; BP diastolic 46–69; PULSE 98–125; RESP 16–21; TEMP 36.6; O2SAT 97–100; BMI 29.2
--- NOTE | 2024-08-05 09:31 | ECG_ITS ---
APPROVED REPORT Exam: Resting ECG HR:121 bpm ECG Measurements Heart Rate 121 AXES ID 141 P 72 QRSd 88 QRS 89 QT 338 T 8 QTc 410 Conclusion SINUS TACHYCARDIA MODERATE T-WAVE ABNORMALITY, CONSIDER ANTERIOR ISCHEMIA [-0.1+ mV T-WAVE IN V3/V4] No STEMI Electronically signed by : ABBIE WALKER, 08/06/2024 03:53:48
--- NOTE | 2024-08-05 09:33 | [facility].EDGENADL ---
Discharge Plan Disposition Patient Disposition: Home, Self-Care Condition: Good Prescriptions Prescriptions: New prochlorperazine maleate [Compazine] 10 mg tablet 10 mg PO Q8H PRN (Reason: nausea and vomiting) Qty: 14 0RF No Action PNV no.155-spzs-htqvs acid 28 mg iron- 800 mcg tablet 1 tab PO DAILY cholecalciferol (vitamin D3) 250 mcg (10,000 unit) tablet 250 mcg PO DAILY norethindrone (contraceptive) 0.35 mg tablet 0.35 mg PO DAILY Qty: 84 4RF ondansetron 4 mg tablet,disintegrating 4 - 8 mg PO BID PRN (Reason: nausea and vomiting) Qty: 20 2RF Referrals Follow up/Referrals: Provider,Referral, MD [Referring, Medical] - See instructions Activity Restrictions/Add. Instructions Additional Instructions/Restrictions: You were evaluated in the emergency department today. At this time, we feel you likely have infectious gastroenteritis. We were unfortunately not able to obtain labs, but your urinalysis demonstrates 3+ ketones without any significant proteinuria or infection. We feel this is consistent with dehydration in this clinical setting. I prescribed you Compazine to have as needed for nausea and vomiting. Make sure you stay hydrated. Eat a bland diet until symptoms have resolved. Follow-up closely with primary care. Return to the emergency department for new or worsening symptoms. Clinical Impressions Clinical Impression: Gastroenteritis, Dehydration Stand Alone Forms Stand Alone Forms: Work/School Release Instructions Patient Instructions: DI for Dehydration -- Adult, DI for Diarrhea and Traveler's Diarrhea -- Adult, DI for Nausea -- Adult Print Language Print Language: Wolof Discharge ED Provider: Bonny Garcia General Adult HPI General Chief complaint: Nausea/Vomiting/Diarrhea Stated complaint: dehydration, nausea, vomiting, diarrhea, Low BP Time Seen by Provider: 08/05/24 09:23 Mode of Arrival: Ambulatory Source of Information: Patient Description of Symptoms (Recalled from ER Triage Doc. by RN): Pt presents with weakness after 3 days of N/V/D, tachycardia and hypotension.Pt is currently ,concerned for dehydration and being too weak to hold her baby. History of Present Illness HPI narrative: This patient is a 29-year-old female with a history of migraines who is currently breast-feeding presenting to the emergency department for evaluation with concern for headache, nausea, vomiting, and diarrhea for 3 days. She notes that today, she was feeling very weak and having trouble breast-feeding her daughter at home, so she checked her vital signs and noted that her blood pressure was low with systolics in the 90s and her heart rate was high in the 120s. She states that she feels like she is severely dehydrated. She has had nausea, vomiting, and diarrhea. She also has a mild headache now, which she states is not a severe as usual migraine and she thinks is just from dehydration. She has had no fevers, chest pain, shortness of breath, melena, hematochezia, dysuria, or significant abdominal pain. She also notes that emesis is nonbloody and nonbilious. No other concerns or complaints noted at this time. She has been taking Zofran at home which initially helped, but today she states is not helping as much. Related Data Home Medications ?Medication ?Instructions ?Recorded ?Confirmed vitamins no.121-iron 28 1 tab PO DAILY 12/30/22 01/07/24 mg-folic acid 800 mcg tablet cholecalciferol (vitamin D3) 250 250 mcg PO DAILY 01/07/24 01/07/24 mcg (10,000 unit) tablet Previous Rx's ?Medication ?Instructions ?Recorded norethindrone (contraceptive) 0.35 0.35 mg PO DAILY #84 tabs 01/07/24 mg tablet ondansetron 4 mg disintegrating 4 - 8 mg (1 - 2 x 4 mg) PO BID PRN 07/14/24 tablet nausea and vomiting #20 tabs prochlorperazine maleate 10 mg 10 mg PO Q8H PRN nausea and 08/05/24 tablet (Compazine) vomiting #14 tabs Allergies Allergy/AdvReac Type Severity Reaction Status Date / Time No Known Allergies Allergy Verified 01/07/24 10:55 [facility] Disclaimer: The information contained in this section may have been updated after the patient was seen, as this information can be updated by other users. Medical History Gestational diabetes mellitus (GDM) Constipation in Screening for genetic disease carrier status GBS bacteriuria Rh negative state in antepartum period Nausea/vomiting in Vaginal bleeding affecting early Asthma Migraine Dyspareunia Anxiety Surgical History History of surgery History of wisdom tooth extraction History of Family History Father Diabetes Hypertension Hyperlipidemia Grandmother Hypertension Diabetes Thyroid disorder Social History Smoking Status: Never smoker alcohol intake: never substance use type: denies use current occupational status: employed Travel in the last 8 weeks?: None household members: spouse and children housing: house Have you lived/traveled outside [place] in past 30 days?: No Contact w/someone who lives/traveled outside US past 30 days?: No Exposure to someone with infectious disease in past 14 days?: No Do you have a fever (greater than 100.4 F or 38 C)?: No Have you tested positive for COVID-19?: No Exposed to someone with COVID-19 in past 14 days?: No Do you have a sore throat?: No Do you have a cough?: No Do you have any weakness?: Yes Do you have any diarrhea?: Yes Are you experiencing any unusual bleeding?: No Do you have any muscle aches/pain?: No Do you have any abdominal pain?: No Are you experiencing loss of taste or smell?: No Other Medical History Have you received the Flu Vaccine for this season: No Have you received the Pneumonia Vaccine: No ROS Obtained: Yes All systems reviewed & no additional complaints except as documented Physical Exam General General appearance: alert and in no apparent distress Head Head exam: atraumatic and normocephalic Eye Eye exam: Present normal appearance, PERRL and EOMI ENT ENT exam: Present mucous membranes dry and normal external ear exam Neck Neck exam: Present normal inspection and trachea midline Chest Chest inspection: Present normal inspection and symmetric chest wall rise Respiratory Respiratory exam: Present normal lung sounds bilaterally; Absent respiratory distress, wheezes, stridor or accessory muscle use Cardiovascular Cardiovascular exam: Present normal rhythm and tachycardia Abdominal Exam Abdominal exam: Present soft; Absent distention, tenderness, guarding or rebound Extremities Exam Extremities exam: Present normal inspection; Absent edema Neurological Exam Neurological exam: Present alert, oriented X3, CN II-XII intact and normal gait; Absent motor sensory deficit Psychiatric Psychiatric exam: Present normal affect and normal mood Skin Skin exam: Present warm and dry Medical Decision Making Medical Records Medical records reviewed: Yes I reviewed the patient's medical records. Screening: Per USPSTF and CDC recommendations, given the prevalence of disease in our region, it is our hospital?s policy to screen for HIV and viral Hepatitis for all patients aged 18 and over and those with ongoing risk factors. Melvin Inquiry Pt receiving controlled substance: No Vital Signs: 08/05/24 09:22 08/05/24 10:00 08/05/24 10:30 Temperature 97.9 F Temperature Source Oral Pulse Rate 125 H 100 H Pulse Rate [Left] 121 H Respiratory Rate 19 20 17 Blood Pressure 106/64 L 95/58 L Blood Pressure [Right Arm] 122/69 Blood Pressure Mean [Right Arm] 86 Blood Pressure Source [Right Arm] Automatic Cuff 02 Sat by Pulse Oximetry 97 98 99 Oxygen Delivery Method Room Air 08/05/24 10:58 08/05/24 11:00 08/05/24 11:30 Temperature Temperature Source Pulse Rate 106 H 98 H Pulse Rate [Left] Respiratory Rate 19 19 18 Blood Pressure 108/55 L 105/55 L 91/46 L Blood Pressure [Right Arm] Blood Pressure Mean [Right Arm] Blood Pressure Source [Right Arm] 02 Sat by Pulse Oximetry 98 98 Oxygen Delivery Method 08/05/24 12:00 08/05/24 12:42 Temperature 98 F Temperature Source Pulse Rate 119 H 122 H Pulse Rate [Left] Respiratory Rate 21 16 Blood Pressure 110/66 110/66 Blood Pressure [Right Arm] Blood Pressure Mean [Right Arm] Blood Pressure Source [Right Arm] 02 Sat by Pulse Oximetry 99 Oxygen Delivery Method Lab Data Lab results reviewed: Yes I reviewed the patient's lab results. Lab Results 08/05/24 12:15: Urine Color Yellow, Urine Appearance Clear, Urine pH 6.0, Ur Specific [place] 1.010, Urine Protein Negative, Urine Glucose (UA) Negative, Urine Ketones 3+, Urine Blood Negative, Urine Nitrate Negative, Urine Bilirubin Negative, Urine Urobilinogen 0.2, Ur Leukocyte Esterase Negative, Urine RBC None, Urine WBC None, Ur Squamous Epith Cells Occasional, Urine Bacteria Trace Orders (Tests/Meds): ED MEDICATIONS Discontinued Medications Generic Name Dose Route Start Last Admin Trade Name Freq PRN Reason Stop Dose Admin Diphenhydramine HCl 25 mg 08/05/24 09:32 08/05/24 09:55 Diphenhydramine 50mg/Ml Vial IV 08/05/24 09:33 25 mg ONCE ONE Administration Lactated Ringer's 1,000 mls @ 999 mls/hr 08/05/24 09:32 08/05/24 09:56 Lactated Ringer's 1000 Ml Bag IV 08/05/24 10:32 999 mls/hr .Q1H1M ONE Administration Lactated Ringer's 1,000 mls @ 999 mls/hr 08/05/24 10:04 08/05/24 10:34 Lactated Ringer's 1000 Ml Bag IV 08/05/24 11:04 999 mls/hr .Q1H1M ONE Administration Ketorolac Tromethamine 15 mg 08/05/24 09:32 08/05/24 09:55 Ketorolac 30mg/Ml Vial IV 08/05/24 09:33 15 mg ONCE ONE Administration Prochlorperazine Edisylate 5 mg 08/05/24 09:32 08/05/24 09:55 Prochlorperazine 10mg/2ml Vial IV 08/05/24 09:33 5 mg ONCE ONE Administration ORDERS Category Date Time Status UA [Urinalysis and Microscopic] Stat Lab 08/05/24 12:15 Completed ECG Data Tracing #1: I reviewed this ECG and interpreted as documented below: Sinus tachycardia with a ventricular of [address] changes concerning for STEMI. Normal intervals ECG initial impression date: 08/05/24 ECG initial impression time: 09:33 Medical Decision Narrative: In summary, this patient is a 29-year-old female presenting to the Emergency Department for evaluation of high heart rate, low blood pressure, general weakness, headache, and concerns for dehydration in the setting of 3 days of nausea, vomiting, and diarrhea. Differential diagnoses considered include but are not limited to viral gastroenteritis, bacterial gastroenteritis, dehydration, hypokalemia, hypomagnesemia, MITCHELL, colitis. Ruling out the most morbid conditions drove assessment. It should be noted patient's history includes migraine which may or may not be at goal therapy. This complicates all aspects of care by increasing patient's risk for morbidity. On exam, the patient is lying in bed in no acute distress. She is tachycardic with heart rate in the 120s to 130s, but she is normotensive. She is nontachypneic, nonhypoxic. Abdominal exam is benign with no localizable tenderness. Based on history and clinical exam, favor dehydration in the setting of gastroenteritis. Workup included CBC, CMP, lipase, magnesium, diarrhea panel, test, urinalysis, EKG. EKG demonstrates sinus tachycardia but is otherwise reassuring. Patient was given a bolus of IV fluids as well as IV Compazine and Benadryl for symptomatic improvement.. On multiple subsequent reassessments, the patient is resting comfortably with no recurrence of vomiting or diarrhea. She received 2 L bolus of IV fluids with significant improvement in her heart rate to less than 100. She is feeling a lot better. Unfortunately, we were not able to obtain labs despite multiple blood sticks, and patient stated that she was feeling better and was not really worried about obtaining labs. Her urine does show 3+ ketones but no significant proteinuria and no concerns for infection. Given symptomatic improvement, ability to tolerate oral intake after Compazine, and improvement in vital signs, I feel the patient is appropriate for discharge home with diagnosis of dehydration in the setting of likely infectious gastroenteritis. She is given prescription for Compazine, instruction for supportive care, and strict return precautions. She was discharged after all questions were answered Critical Care Critical Care Time Critical Care Time: No
[2024-08-05] MEDS: diphenhydrAMINE 50MG/ML VIAL 25 MG IV (09:55)
[2024-08-05] MEDS: KETOROLAC 30MG/ML VIAL 15 MG IV (09:55)
[2024-08-05] MEDS: PROCHLORPERAZINE 10MG/2ML VIAL 5 MG IV (09:55)
[2024-08-05] MEDS: LACTATED RINGERS 1000ML 1,000 ML 999 ML IV ×2 (09:56→10:34)
--- NOTE | 2024-08-05 12:01 | PC.NURSE ---
I rounded on the pt. no new complaints at this time. pt was able to successfully complete her PO challenge. call ruffin in reach.
--- NOTE | 2024-08-05 12:20 | PC.NURSE ---
Pt able to tolerate Starry and chips, Dr Garcia aware. Pt is ready to be discharged
[2024-08-05 12:21] LABS: Microscopic, Urine URINE MICROSCOPIC (MICROSCOPIC)
[2024-08-05 12:25] LABS: Appearance,Urine CLEAR (Clear); Bilirubin,Urine Negative (Negative); Blood, Urine Negative (Negative); Color,Urine YELLOW (Yellow); Glucose,Urine (UA) Negative (Negative); Ketones,Urine 3+ (Negative); Leukocyte Esterase,Urine Negative (Negative); Nitrate,Urine Negative (Negative); Protein,Urine Negative (Negative); Urobilinogen,Urine 0.2 EU/dl (0.2)
[2024-08-05 12:35] LABS: Bacteria,Urine Trace /lpf; Squamous Epithelial Cell,Urine Occasional #/hpf (0-5)
== END 2024-08-05 12:49 | disposition home or self-care (01) ==
PROVIDERS: Emergency Provider Emergency Medicine; PCP Family Medicine
DX: E86.0 Dehydration (principal); R11.2 Nausea with vomiting, unspecified; R00.0 Tachycardia, unspecified; K52.9 Noninfective gastroenteritis and colitis, unspecified
CPT/HCPCS: 81001; 93005; 96361; 96374; 96375; 99284; J0780; J1200; J1885; J7120

== ENCOUNTER 2025-01-30 15:05 | Outpatient (CLI) | payer OTHER, SELFPAY ==
--- OUTSIDE RECORDS SUMMARY | 2024-12-28 09:00 | XMS_ITS | Encounter Summary ---
Author Organization [facility] Address [address] [place] [address] Care Team Providers Care Taker Down Name Role Phone Eran Campoverde MD Primary Care Provider [phone] Reason for Visit * Reason Comments Abnormal Lab +JHONNY Joint Pain * Consultation (Routine) - Closed Specialty Diagnoses / Procedures Referred By Contac t Referred To Contact Rheumatology Diagnoses Positive JHONNY (antinuclear antibody) Family history of rheumatoid arthritis Eran Campoverde MD [address] [place] [address] Phone: tel: fax: [facility] [address] [address] Phone: tel: fax: Referral ID Status Reason Start Date Expiration Date Visits Re quested Visits Authorized [id number] Closed 08/01/2024 10/31/2025 1 1 Encounter Details Date Type Department Care Team (Late st Contact Info) Description 12/28/2024 10:00 AM EDT Office Visit [facility] [address] [address] Geronimo Holt DO [address] [id number] Arthralgia, unspecified joint (Primary Dx); Fatigue, unspecified type; JHONNY positive Social History Tobacco Use Types Packs/Day Years Used Date Smoking Tobacco: Never Smokeless Tobacco: Never Alcohol Use Standard Drinks/Week Comments Not Currently 0 (1 standard drink = 0.6 oz pur e alcohol) occ Comments Unknown Sex and Gender Information Value Date Recorded Sex Assigned at Female 12/21/2024 11:41 AM EDT Legal Sex Female 1:53 PM EDT Gender Identity Not on file Sexual Orientation Not on file documented as of this encounter Last Filed Vital Signs Vital Sign Reading Time Taken Comments Blood Pressure 108/64 12/28/2024 9:50 AM EDT Pulse 75 12/28/2024 9:50 AM EDT Temperature 36.6 C (97.8 F) 12/28/2024 9:50 AM EDT Respiratory Rate 16 12/28/2024 9:50 AM EDT Oxygen Saturation - - Inhaled Oxygen Concentration - - Weight 67.6 kg (149 lb) 12/28/2024 9:50 AM EDT Height 157.5 cm (5' 2.01 ) 12/28/2024 9:50 AM ED T Body Mass Index 27.25 12/28/2024 9:50 AM EDT documented in this encounter Patient Instructions * Attachments The following attachments cannot be sent through Care Everywhere. * Antinuclear Antibody Test (Namibian) documented in this encounter Progress Notes * Geronimo Holt, DO - 12/28/2024 10:00 AM EDT Images from the original note were not included. Office Visit Date: 12/28/2024 Patient Name: Pretty Gage Date of : 1995 Referring Physician: Eran Campoverde MD Chief Complaint Patient presents with Abnormal Lab +JHONNY Joint Pain History of Present Illness: Pretty Gage is a 29 y.o. female who is here today at the request of Dr. Campoverde. The referral indicates that she is JHONNY positive. There is now concern that she may have an autoimmune illness. Her grandmother was diagnosed with RA. No recent serious injuries or infections. No fever. She is fatigued. No history of uveitis, iritis,or scleritis. No oral, nasal, or genital ulcers. No history of psoriasis, gout, or Raynaud's. She rates her pain today as 4/10 in severity. She has 2 hours/day of morning stiffness. No red or hot joints. No swelling. No muscle pain or weakness. No back or neck problems. She has pain in her ankles, thumbs, and knuckles. No rash. No hair loss. No lymphadenopathy. No abnormal bruising/bleeding. She has headaches. No paresthesias. No GI or issues. NO chest pain. She is short of breath with activity. She has been diagnosed with exercise induced asthma. No sicca symptoms. Medication/treatment/interventions tried include: Tylenol, Yoga, ibuprofen Studies reviewed included: 02/25/24: DS DNA normal, LIP CUTTER AND SCORER normal, Gage normal, SSA and SSB normal, chromatin normal, Centromere normal, Angela 1 normal, JHONNY 1:1280 homogenous Subjective Review of Systems Constitutional: Positive for fatigue. HENT: Negative. Eyes: Positive for blurred vision and photophobia. Respiratory: Positive for shortness of breath. Cardiovascular: Positive for palpitations. Gastrointestinal: Negative. Endocrine: Negative. Genitourinary: Negative. Musculoskeletal: Positive for arthralgias. Skin: Negative. Allergic/Immunologic: Negative. Neurological: Positive for headache. Hematological: Negative. Psychiatric/Behavioral: Positive for decreased concentration. The patient is nervous/anxious. All other systems reviewed and are negative. Past Medical History: Diagnosis Date Asthma Diabetes mellitus Migraine Past Surgical History: Procedure Laterality Date SECTION PRIMARY 2021 DENTAL PROCEDURE No family history on file. Social History Socioeconomic History Marital status: Tobacco Use Smoking status: Never Smokeless tobacco: Never Vaping Use Vaping status: Never Used Substance and Sexual Activity Alcohol use: Not Currently Comment: occ Drug use: Never Sexual activity: Yes Partners: Male control/protection: Pill Current Outpatient Medications: Cholecalciferol (Vitamin D3) 1.25 MG (50796 UT) capsule, , Disp: , Rfl: Vit-Fe Fumarate-FA ( vitamin 27-0.8) 27-0.8 MG tablet tablet, Take 1 tablet by mouth Daily., Disp: , Rfl: No Known Allergies I reviewed the patient's chief complaint, history of present illness, review of systems, past medical history, surgical history, family history, social history, medications and allergy list. Objective Vitals: 12/28/24 0950 12/28/24 1038 BP: 108/64 BP Location: Left arm Patient Position: Sitting Cuff Size: Adult Pulse: 75 Resp: 16 Temp: 97.8 ??F (36.6 ??C) TempSrc: Temporal Weight: 67.6 kg (149 lb) Height: 157.5 cm (62.01 ) PainSc: 0-No pain 4 Body mass index is 27.25 kg/m??. Physical Exam General: Well appearing 29 year old female. Not in distress. She is ambulating unassisted. SKIN: No rashes. No alopecia. No subcutaneous nodules. No digital pits or ulcers. No sclerodactyly. HEENT: NCAT. Conjunctiva clear, no photophobia. No oral or nasal ulcers. Hearing intact. Pulmonary: Clear to auscultation bilaterally. No wheezing, rales, or rhonchi. CV: Regular rate and rhythm. No murmurs, rubs, or gallops. Psych: Normal mood and affect. Alert and oriented x 3. Extremities: No cyanosis or edema. Musculoskeletal: No joint swelling or tenderness to palpation. No warmth or erythema. Normal range of motion of the wrists, ankles, elbows, and knees. Lymph: No palpable cervical adenopathy Procedures Assessment / Plan Assessment & Plan Arthralgia, unspecified joint 02/25/24: DS DNA normal, LIP CUTTER AND SCORER normal, Gage normal, SSA and SSB normal, chromatin normal, Centromerenormal, Angela 1 normal, JHONNY 1:1280 homogenous She has a grandmother RA. She has been found to be JHONNY positive. See below. We will evaluate further for autoimmune disease/inflammatory types of arthritis Follow up in 2-3 months Orders: QuantiFERON-TB Gold Plus (Li-Hep) Hepatitis Panel, Acute 14.3.3 ETA, Rheum. Arthritis JHONNY 12 Plus Profile (RDL) JHONNY by IFA, Reflex to Titer and Pattern ANCA Panel Beta-2 Glycoprotein Antibodies CBC Auto Differential CK Comprehensive Metabolic Panel C-reactive Protein Cyclic Citrul Peptide Antibody, IgG / IgA HLA-B27 Antigen Lupus Anticoag / Cardiolipin Ab RF Isotypes, IgG, IgA, IgM EIA Sedimentation Rate Thyroid Antibodies TSH+Free T4 UA / M With / Rflx Culture([facility] ONLY) - Urine, Clean Catch Aldolase XR Hand 2 View Bilateral; Future XR Foot 3+ View Bilateral; Future XR Sacroiliac Joints 3+ View XR Chest 2 View; Future Fatigue, unspecified type Labs and x-rays to evaluate for autoimmune conditions. We usually contact patients with these results within 10-14 business days Orders: QuantiFERON-TB Gold Plus (Li-Hep) Hepatitis Panel, Acute 14.3.3 ETA, Rheum. Arthritis JHONNY 12 Plus Profile (RDL) JHONNY by IFA, Reflex to Titer and Pattern ANCA Panel Beta-2 Glycoprotein Antibodies CBC Auto Differential CK Comprehensive Metabolic Panel C-reactive Protein Cyclic Citrul Peptide Antibody, IgG / IgA HLA-B27 Antigen Lupus Anticoag / Cardiolipin Ab RF Isotypes, IgG, IgA, IgM EIA Sedimentation Rate Thyroid Antibodies TSH+Free T4 UA / M With / Rflx Culture([facility] ONLY) - Urine, Clean Catch Aldolase XR Hand 2 View Bilateral; Future XR Foot 3+ View Bilateral; Future XR Sacroiliac Joints 3+ View XR Chest 2 View; Future JHONNY positive We reviewed the outside labs and discussed them at length. All of the patients questions were answered. Handout on + JHONNY tests was given to the patient to take home. An JHONNY test is a non specific test. While it certainly can be positive in conditions like SLE, scleroderma, myositis, Sj??gren's, etc.. It can also be positive in patients with thyroid disease, type 1 diabetes, psoriasis, Celiacs disease, inflammatory bowel disease, etc.. There are also reports of n ormal/apparently healthy individuals who have been incidentally found to have a +JHONNY test. You can also sometimes get a false positive JHONNY test. Labs today to try and determine the significance of this +JOHNNY test. Patient will be contacted once these test results are available. Orders: QuantiFERON-TB Gold Plus (Li-Hep) Hepatitis Panel, Acute 14.3.3 ETA, Rheum. Arthritis JHONNY 12 Plus Profile (RDL) JHONNY by IFA, Reflex to Titer and Pattern ANCA Panel Beta-2 Glycoprotein Antibodies CBC Auto Differential CK Comprehensive Metabolic Panel C-reactive Protein Cyclic Citrul Peptide Antibody, IgG / IgA HLA-B27 Antigen Lupus Anticoag / Cardiolipin Ab RF Isotypes, IgG, IgA, IgM EIA Sedimentation Rate Thyroid Antibodies TSH+Free T4 UA / M With / Rflx Culture([facility] ONLY) - Urine, Clean Catch Aldolase XR Hand 2 View Bilateral; Future XR Foot 3+ View Bilateral; Future XR Sacroiliac Joints 3+ View XR Chest 2 View; Future Follow Up: Return in about 3 months (around 03/30/2025). Geronimo Holt DO [facility] [facility] [place] documented in this encounter Plan of Treatment Upcoming Encounters Date Type Department Care Team (Late st Contact Info) Description 04/05/2025 10:45 AM EST Office Visit [facility] [address] [place] [address] Alexa Tony APRN [address] [facility] [address] [place] [address] Scheduled Orders Name Type Priority Associated Diagnoses Orde r Schedule CBC Auto Differential Lab Routine Arthralgia, unspecified joint Fatigue, unspecified type JHONNY positive Ordered: 12/28/2024 documented as of this encounter Procedures Procedure Name Priority Date/Time Associated Diagnosis Comments HEPATITIS C VIRUS INTERPRETATION Routine 12/28/2024 11:58 AM EDT CONV JHONNY 12 PLUS PROFILE, POSITIVE Routine 12/28/2024 11:58 AM EDT JHONNY 12 PLUS PROFILE (RDL) Routine 12/28/2024 11:58 AM EDT Arthralgia, unspecified joint Fatigue, unspecified type JHONNY positive QUANTIFERON-TB GOLD PLUS Routine 12/28/2024 11:58 AM EDT QUANTIFERON-TB GOLD PLUS (LI-HEP) Routine 12/28/2024 11:58 AM EDT Arthralgia, unspecified joint Fatigue, unspecified type JHONNY positive RF ISOTYPES, IGG, IGA, IGM EIA Routine 12/28/2024 11:58 AM EDT Arthralgia, unspecified joint Fatigue, unspecified type JHONNY positive 14.3.3 ETA, RHEUM. ARTHRITIS Routine 12/28/2024 11:58 AM EDT Arthralgia, unspecified joint Fatigue, unspecified type JHONNY positive UA/M W/RFLX CULTURE ([facility] ONLY) Routine 12/28/2024 11:58 AM EDT Arthralgia, unspecified joint Fatigue, unspecified type JHONNY positive ~MICROSCOPIC EXAMINATION Routine 12/28/2024 11:58 AM EDT TSH+FREE T4 Routine 12/28/2024 11:58 AM EDT Arthralgia, unspecified joint Fatigue, unspecified type JHONNY positive LUPUS ANTICOAG/CARDIOLIPIN AB Routine 12/28/2024 11:58 AM EDT Arthralgia, unspecified joint Fatigue, unspecified type JHONNY positive THYROID ANTIBODIES Routine 12/28/2024 11 :58 AM EDT Arthralgia, unspecified joint Fatigue, unspecified type JHONNY positive ANCA PANEL Routine 12/28/2024 11:58 AM EDT Arthralgia, unspecified joint Fatigue, unspecified type JHONNY positive CONV STEFANY STAINING PATTERNS Routine 12/28/2024 11:58 AM EDT HLA-B27 ANTIGEN Routine 12/28/2024 11:58 AM EDT Arthralgia, unspecified joint Fatigue, unspecified type JHONNY positive JHONNY BY IFA, REFLEX TO TITER AND PATTERN Routine 12/28/2024 11:58 AM EDT Arthralgia, unspecified joint Fatigue, unspecified type JHONNY positive CYCLIC CITRUL PEPTIDE ANTIBODY, IGG/IGA Routine 12/28/2024 11:58 AM EDT Arthralgia, unspecified joint Fatigue, unspecified type JHONNY positive ALDOLASE Routine 12/28/2024 11:58 AM EDT Arthralgia, unspecified joint Fatigue, unspecified type JHONNY positive HEPATITIS PANEL, ACUTE Routine 11:58 AM EDT Arthralgia, unspecified joint Fatigue, unspecified type JHONNY positive BETA-2 GLYCOPROTEIN ANTIBODIES Routine 12/28/2024 11:58 AM EDT Arthralgia, unspecified joint Fatigue, unspecified type JHONNY positive SEDIMENTATION RATE Routine 12/28/2024 11 :58 AM EDT Arthralgia, unspecified joint Fatigue, unspecified type JHONNY positive CBC AND DIFFERENTIAL Routine 12/28/2024 11:58 AM EDT C-REACTIVE PROTEIN Routine 12/28/2024 11 :58 AM EDT Arthralgia, unspecified joint Fatigue, unspecified type JHONNY positive CK Routine 12/28/2024 11:58 AM EDT Arthralgia, unspecified joint Fatigue, unspecified type JHONNY positive COMPREHENSIVE METABOLIC PANEL Routine 12/28/2024 11:58 AM EDT Arthralgia, unspecified joint Fatigue, unspecified type JHONNY positive XR SACROILIAC JOINTS 3+ VW Routine 12/28/2024 11:15 AM EDT Arthralgia, unspecified joint Fatigue, unspecified type JHONNY positive documented in this encounter Results * (ABNORMAL) STEFANY Staining Patterns (12/28/2024 11:58 AM EDT) Speckled Pattern 1:640(H) [facility] Comment:ICAP nomenclature: A C-2,4,5,29 Nuclear Dot Pattern >1:1280(A) [facility] Comment:ICAP nomenclature: A C-6,7 Note: (Reference) Comment [facility] Comment: Pattern Potential Disease Association Homogeneous Systemic Lupus Erythematosus, Drug Induced Systemic Lupus Erythematosus, Chronic Autoimmune hepatitis, Juvenile Idiopathic Arthritis Speckled Sjogren Syndrome, Systemic Lupus Erythematosus, Subacute Cutaneous Lupus, Lupus, Congenital Heart Block, Mixed Connective Tissue Disease, Scleroderma-diffuse, Scleroderma-Autoimmune Myositis Overlap Syndrome, Systemic Lupus Scllthehtixdd-Ltfnbwekkrb-Xdxrvugvhw Myositis Overlap Syndrome, Systemic Autoimmune Rheumatic Disease, Undifferentiated Connective Tissue Disease Nucleolar Systemic Sclerosis, Scleroderma-Autoimmune Myositis Overlap Syndrome, Sjogren Syndrome, Raynaud phenomenon, Pulmonary Arterial Hypertension, Systemic Autoimmune Rheumatic Disease, Cancer Centromere Scleroderma-CREST, Limited Cutaneous SSc, Raynaud's Phenomenon, Primary Biliary Cholangitis Nuclear Dot Primary Biliary Cholangitis Nuclear Primary Biliary Cholangitis, Autoimmune Membrane Hepatitis/Liver disease, Systemic Autoimmune Rheumatic Disease, Autoimmune Cytopenias, Linear Scleroderma, Antiphospholipid Syndrome 12/28/2024 11:5 8 AM EDT 12/28/2024 Narrative [facility] (AMBULATORY) - 01/19/2025 3:06 AM EST Performed at: 01 - [facility] [address] [facility], [place], [place] [id number] Reimbursement Counselor: Edin Tucker PhD, Phone: [phone] Patient Fasting: Y Geronimo Holt DO LAB BLOOD ORDERABLES F inal Result [facility] ([facility]AT[facility]) [address] [place] [address], [facility] [address] [place] [address], * (ABNORMAL) JHONNY 12 Plus Profile, Positive (12/28/2024 11:58 AM EDT) Homogeneous Pattern 1:80(H) <1:40 [facility] Speckled Pattern 1:640(H) <1:40 [facility] Nuclear Dot Pattern >1:1280(A) <1:40 [facility] Note: Comment [facility] Comment:JHONNY performed by Ind irect Fluorescent Antibody (IFA) ANTI-CENTROMERE AB (RDL) <1:40 <1:40 [facility] ANTI-DSDNA AB BY BRITTANY <8.0 <8.0 IU/mL [facility] ANTI-SM AB (RDL) <20 <20 Units [facility] Anti-U1 LIP CUTTER AND SCORER Ab <20 <20 Units [facility] ANTI-RO (SS-A) <20 <20 Units [facility] ANTI-LA (SS-B) <20 <20 Units [facility] ANTI-SCL-70 AB (RDL) <20 <20 Units [facility] Anti-Cardiolipin Ab, IgG (RDL) <15 <15 GPL U/mL [facility] Anti-Cardiolipin Ab, IgA (RDL)^ <12 <12 APL U/mL [facility] Anti-Cardiolipin Ab, IgM (RDL) <13 <13 MPL U/mL [facility] C3 Complement 195(H) 90 - 180 mg/dL [facility] C4 Complement 31 10 - 40 mg/dL [facility] Comment:Please note refere nce interval change Anti-TPO Ab (RDL) CANCELED IU/mL [facility] Comment: Duplicate procedure ordered. Result canceled by the ancillary. Anti-Chromatin Ab, IgG <20 <20 Units [facility] Anti-CCP Ab, IgG & IgA <20 <20 Units [facility] Rheumatoid Factor by Turb RDL <14 <14 IU/mL [facility] JHONNY Plus 12 Interpretation Comment [facility] Comment: Interpretation for Anti-Sm, Anti-U1 LIP CUTTER AND SCORER, Anti-Ro, Anti-La: Negative: <20 Weak Positive: 20 - 39 Moderate Positive: 40 - 80 Strong Positive: >80 Interpretation for Anti-CCP Ab, IgG / IgA: Negative: <20 Weak Positive: 20 - 39 Moderate Positive: 40 - 59 Strong Positive: >59 Interpretation for Anti-Cardiolipin Ab: Negative: GPL <15, APL <12, MPL <13 Indeterminate: GPL 15-20, APL 12-20, MPL 13-20 Low Positive: GPL, APL, MPL >20 - 40 Med Positive: GPL, APL, MPL >40 - 80 High Positive: GPL, APL, MPL >80 SLE classification criteria are based on Med to High titer (>40) Anti-Cardiolipin Ab (aCL). aCL may be elevated transiently with certain infections and may increase spuriously in the presence of rheumatoid factor. 12/28/2024 11:5 8 AM EDT 12/28/[address] [facility] (AMBULATORY) - 01/19/2025 3:06 AM EST Performed at: 04 - [facility] [address] [place] [id number] Reimbursement Counselor: Placido Valencia MD, Phone: [phone] Patient Fasting: Y us Geronimo Holt DO LAB BLOOD ORDERABLES E dited Result - Final [facility] (AMBULATORY) [address] [place] [address], [place] [phone] [facility] [address] [place] [address], [place] [phone] * QuantiFERON-TB Gold Plus (12/28/2024 11:58 AM EDT) QuantiFERON Criteria Comment [facility] Comment: QuantiFERON-TB Gold Plus is a qualitative indirect test for M tuberculosis infection (including disease) and is intended for use in conjunction with risk assessment, radiography, and other medical and diagnostic evaluations. The QuantiFERON-TB Gold Plus result is determined by subtracting the Nil value from either TB antigen (Ag) value. The Mitogen tube serves as a control for the test. QUANTIFERON TB1 AG VALUE 0.03 IU/mL [facility] QUANTIFERON TB2 AG VALUE 0.01 IU/mL [facility] QuantiFERON Nil Value 0.01 IU/mL [facility] QuantiFERON Mitogen Value 9.67 IU/mL [facility] 12/28/2024 11:5 8 AM EDT 12/28/2024 [facility] (AMBULATORY) - 01/19/2025 3:06 AM EST Performed at: [address] [id number] Reimbursement Counselor: Edin Tucker PhD, Phone: [phone] Patient Fasting: Y us Geronimo Holt DO LAB BLOOD ORDERABLES F inal Result [facility] [address] [place] [address], [facility] [address] [place] [address], * Hepatitis C Virus Interpretation (12/28/2024 11:58 AM EDT) Interpretation Comment [facility] Comment: Not infected with HCV unless early or acute infection is suspected (which may be delayed in an immunocompromised individual), or other evidence exists to indicate HCV infection. 12/28/2024 11:5 8 AM EDT 12/28/[address] [facility] (AMBULATORY) - 01/19/2025 3:06 AM EST Performed at: - [facility] [address] [place], [place] [id number] Reimbursement Counselor: Edin Tucker PhD, Phone: [phone] Patient Fasting: Y Geronimo Holt DO LAB BLOOD ORDERABLES F inal Result Performing Organization Address [facility]/ZIP Co de Phone Number [facility] ([facility]) [address] [place] [address], [place] [phone] [facility] [address] [place] [address], [place] [phone] * Microscopic Examination - (12/28/2024 11:58 AM EDT) Pathologist [facility] WBC, UA None seen 0 - 5 /hpf [facility] RBC, UA 0-2 0 - 2 /hpf [facility] Epithelial Cells (non renal) 0-10 0 - 10 /hpf [facility] Casts None seen None seen /lpf [facility] Bacteria, UA None seen None seen/Few [facility] 12/28/2024 11:5 8 AM EDT 12/28/2024 Narrative [facility] ([facility]) - 01/19/2025 3:06 AM EST Performed at: - [facility] [address] [place], [place] [id number] Reimbursement Counselor: Edin Tucker PhD, Phone: [phone] Patient Fasting: Y Geronimo Holt DO URINE ORDERABLES Final Result Performing Organization Address [facility]/ZIP Co de Phone Number [facility] ([facility]) [address] [place] [address], [place] [phone] [facility] [address] [place] [address], * (ABNORMAL) CBC & Differential (12/28/2024 11:58 AM EDT) Pathologist [facility] WBC 6.3 3.4 - 10.8 x10E3/uL [facility] RBC 4.93 3.77 - 5.28 x10E6/uL [facility] Hemoglobin 15.7 11.1 - 15.9 g/dL [facility] Hematocrit 48.1(H) 34.0 - 46.6 % [facility] MCV 98(H) 79 - 97 fL [facility] MCH 31.8 26.6 - 33.0 pg [facility] MCHC 32.6 31.5 - 35.7 g/dL [facility] RDW 12.9 11.7 - 15.4 % [facility] Platelets 220 150 - 450 x10E3/uL [facility] Neutrophil Rel % 57 Not Estab. % [facility] Lymphocyte Rel % 37 Not Estab. % [facility] Monocyte Rel % 5 Not Estab. % [facility] Eosinophil Rel % 0 Not Estab. % [facility] Basophil Rel % 1 Not Estab. % [facility] Neutrophils Absolute 3.6 1.4 - 7.0 x10E3/uL [facility] Lymphocytes Absolute 2.3 0.7 - 3.1 x10E3/uL [facility] Monocytes Absolute 0.3 0.1 - 0.9 x10E3/uL [facility] Eosinophils Absolute 0.0 0.0 - 0.4 x10E3/uL [facility] Basophils Absolute 0.0 0.0 - 0.2 x10E3/uL [facility] Immature Granulocyte Rel % 0 Not Estab. % [facility] Immature Grans Absolute 0.0 0.0 - 0.1 x10E3/uL [facility] 12/28/2024 11:5 8 AM EDT 12/28/[address] [facility] (AMBULATORY) - 01/19/2025 3:06 AM EST Performed at: 01 - [facility] [address] [id number] Reimbursement Counselor: Edin Tucker PhD, Phone: [phone] Patient Fasting: Y us Geronimo Holt DO LAB BLOOD ORDERABLES F inal Result [facility] (AMBULATORY) [address] [place] [address], [facility] [address] [place] [address], * Aldolase (12/28/2024 11:58 AM EDT) Pathologist [facility] Aldolase 4.0 3.3 - 10.3 U/L [facility] Blood 12/28/2024 11:5 8 AM EDT 12/28/2024 Narrative [facility] (AMBULAT[facility]) - 01/19/2025 3:06 AM EST Performed at: 01 - [facility] [address] [place], [place] [id number] Reimbursement Counselor: Edin Tucker PhD, Phone: [phone] Patient Fasting: Y us Geronimo Holt DO LAB BLOOD ORDERABLES F inal Result [facility] (AM[facility]ULATORY) [address] [place] [address], [place] [phone] [facility] [address] [place] [address], [place] [phone] * UA / M With / Rflx Culture([facility] ONLY) - Urine, Clean Catch (12/28/2024 11:58 AM EDT) Pathologist [facility] Specific Ericson, UA 1.008 1.005 - 1.030 [facility] pH, UA 7.5 5.0 - 7.5 [facility] Color, UA Yellow Yellow [facility] Appearance, UA Clear Clear [facility] Leukocytes, UA Negative Negative [facility] Protein Negative Negative/Tra ce [facility] Glucose, UA Negative Negative [facility] Ketones Negative Negative [facility] Blood, UA Negative Negative [facility] Bilirubin, UA Negative Negative [facility] Urobilinogen, UA 0.2 0.2 - 1.0 mg/dL [facility] Nitrite, UA Negative Negative [facility] Microscopic Examination Comment [facility] Comment:Microscopic follows if indicated. Microscopic Examination See below: [facility] Comment:Microscopic was isael cated and was performed. Urinalysis Reflex Comment [facility] Comment:This specimen will n ot reflex to a Urine Culture. Urine Urine specimen obtained by clean catch procedure / Unknown 12/28/2024 11:58 AM EDT 12/28/2024 Narrative [facility] ([facility]) - 01/19/2025 3:06 AM EST Performed at: - [address] [id number] Reimbursement Counselor: Edin Tucker PhD, Phone: [phone] Patient Fasting: Y [facility] Jayden Belcher DO URINE ORDERABLES Final Result Performing Organization Address [facility] de Phone Number [facility] ([facility]) [address] [place] [address], [facility] [address] [place] [address], [place] [phone] * TSH+Free T4 (12/28/2024 11:58 AM EDT) Pathologist [facility] TSH 3.110 0.450 - 4.500 uIU/mL [facility] Free T4 1.37 0.82 - 1.77 ng/dL [facility] Blood 12/28/2024 11:5 8 AM EDT 12/28/2024 Narrative [facility] ([facility]ORY) - 01/19/2025 3:06 AM EST Performed at: - [address] [id number] Reimbursement Counselor: Edin Tucker PhD, Phone: [phone] Patient Fasting: Y Geronimo Holt DO LAB BLOOD ORDERABLES F inal Result Performing Organization Address [facility] de Phone Number [facility] (AMBULATORY) [address] [place] [address], [facility] [address] [place] [address], [place] [phone] * Thyroid Antibodies (12/28/2024 11:58 AM EDT) Pathologist [facility] Thyroid Peroxidase Antibody 15 0 - 34 IU/mL [facility] Thyroglobulin Ab <1.0 0.0 - 0.9 IU/mL [facility] Comment: Thyroglobulin Antibody measured by Queenie Morovis Methodology It should be noted that the presence of thyroglobulin antibodies may not be pathogenic nor diagnostic, especially at very low levels. The assay risk advisor has found that four percent of individuals without evidence of thyroid disease or autoimmunity will have positive TgAb levels up to 4 IU/mL. Blood 12/28/2024 11:5 8 AM EDT 12/28/2024 [facility] - 01/19/2025 3:06 AM EST Performed at: [address] [place] [id number] Reimbursement Counselor: Edin Tucker PhD, Phone: [phone] Patient Fasting: Y [facility] LAB BLOOD ORDERABLES F inal Result Performing Organization Address [facility] Co de Phone Number [facility] ([facility]) [address] [place], [place] [id number], [facility] [address] [place] [address], * Sedimentation Rate (12/28/2024 11:58 AM EDT) Pathologist [facility] Sed Rate 5 0 - 32 mm/hr [facility] Blood 12/28/2024 11:5 8 AM EDT 12/28/2024 [facility] (AMBULATORY) - 01/19/2025 3:06 AM EST Performed at: [address] [place] [id number] Reimbursement Counselor: Edin Tucker PhD, Phone: [phone] Patient Fasting: Y [facility] LAB BLOOD ORDERABLES F inal Result Performing Organization Address City/[facility]/ZIP Co de Phone Number [facility] ([facility]) [address] [place] [address], [place] [phone] [facility] [address] [place] [address], * RF Isotypes, IgG, IgA, IgM EIA (12/28/2024 11:58 AM EDT) Pathologist [facility] RF, IGG BY EIA (RDL) <7 <7 U [facility] RF, IGA BY EIA (RDL) <7 <7 U [facility] RF, IGM BY EIA (RDL) <7 <7 U [facility] Blood 12/28/2024 11:5 8 AM EDT 12/28/[address] [facility] (AMBULATORY) - 01/19/2025 3:06 AM EST Performed at: - [facility] [address] [place] [id number] Reimbursement Counselor: Placido Valencia MD, Phone: [phone] Patient Fasting: Y us Geronimo Holt DO LAB BLOOD ORDERABLES F inal Result [facility] [address] [place] [address], [place] [phone] [facility] [address] [place] [id number], * Lupus Anticoag / Cardiolipin Ab (12/28/2024 11:58 AM EDT) Protime 10.4 sec [facility] Comment: Reference Range: 18 years and older: 9.1 - 12.0 INR 1.0 ratio [facility] Comment: Reference Range: >1 month: 0.9 - 1.2 aPTT 25.7 sec [facility] Comment: This test has not been validated for monitoring unfractionated heparin therapy. aPTT-based therapeutic ranges for unfractionated heparin therapy have not been established. Consider ordering Heparin anti-Xa (unfractionated). Reference Range: 18 years and older: 22.9 - 30.2 APTT 1:1 CREDIT PORTFOLIO MANAGER CANCELED sec [facility] Comment: Testing Not Indicated This test was developed and its performance characteristics determined by [facility]. It has not been cleared or approved by the [place] Food and Drug Administration. Result canceled by the ancillary. APTT 1:1 Saline CANCELED sec [facility] Comment: Testing Not Indicated This test was developed and its performance characteristics determined by [facility]. It has not been cleared or approved by the [place] Food and Drug Administration. Result canceled by the ancillary. Thrombin Time 22.9 sec [facility] Comment: Reference Range: 0.0 - 23.0 DRVVT Screen Seconds 39.8 sec [facility] Comment: Reference Range: <= 47.0 DRVVT Confirm Seconds CANCELED sec [facility] Comment: Testing Not Indicated Result canceled by the ancillary. DRVVT/Confirm Ratio CANCELED ratio [facility] Comment: Testing Not Indicated Result canceled by the ancillary. Hex Phosph Neut Test 4 sec [facility] Comment: This value is NEGATIVE. This is a qualitative assay and is therefore reported as positive for lupus anticoagulant or negative. The quantitative value is provided as an aid in diagnosis. Reference Range: 0 - 11 Anticardiolipin IgG <10 GPL [facility] Comment: Reference Range: Negative: <15 Indeterminate: 15 - 20 Low to medium positive: >20 - 80 High positive: >80 Anticardiolipin IgM 12 MPL [facility] Comment: Reference Range: Negative: <13 Indeterminate: 13 - 20 Low to medium positive: >20 - 80 High positive: >80 Beta-2 Glyco 1 IgG <10 SGU [facility] Comment: The reference interval reflects a 3SD or 99th percentile interval. Reference Range: Negative: <21 Beta-2 Glyco 1 IgM <10 SMU [facility] Comment: The reference interval reflects a 3SD or 99th percentile interval. Reference Range: Negative: <33 Beta-2 Glyco 1 IgA <10 KAZ [facility] Comment: The reference interval reflects a 3SD or 99th percentile interval. Reference Range: Negative: <26 LAC Interpretation Comment [facility] Comment: A lupus anticoagulant is not detected. All antiphospholipid antibodies evaluated are normal. As antibody titers may fluctuate with time, repeat testing may be indicated. Please contact [facility] if further clarification is needed. Blood 12/28/2024 11:5 8 AM EDT 12/28/2024 Narrative [facility] ([facility]ORY) - 01/19/2025 3:06 AM EST Performed at: 02 - [facility] [address] [id number] Reimbursement Counselor: Gian Acosta MD, Phone: [phone] Patient Fasting: Y us Geronimo Holt DO LAB BLOOD ORDERABLES E dited Result - Final Performing Organization Address City/[facility]/ZIP Co de Phone Number [facility] [address] [place] [address], [facility] [address] [place] [address], * HLA-B27 Antigen (12/28/2024 11:58 AM EDT) HLA B27 Negative [facility] Comment: HLA-B*27 Negative B27 allele interpretation for all loci based on IMGT/HLA database version 3.58 This test was developed and its performance characteristics determined by [employer]. It has not been cleared or approved by the Food and Drug Administration. The FDA has determined that such clearance or approval is not necessary. [facility] CLIA ID Number [id number] HISTOCOMPATIBILITY SECTION DIRECTOR: Guanakito Martinez, PhD, D([facility]), F([facility]) This test was performed using Polymerase Chain Reaction (PCR) and Sequence Specific Oligonucleotide Probes (SSOP) technique. Sequence Based Typing (SBT) may be used as a supplemental method when necessary. If you have questions, please call HLA customer service at or email at [email or web address]. Blood 12/28/2024 11:5 8 AM EDT 12/28/2024 Narrative [facility] (AMBULATORY) - 01/19/2025 3:06 AM EST Performed at: [address] [place] [id number] Reimbursement Counselor: Carli Judd PhD, Phone: [phone] Patient Fasting: Y [facility] LAB BLOOD ORDERABLES F inal Result Performing Organization Address [facility]/ZIP Co de Phone Number [facility] ([facility]) [address] [place] [address], [facility] [address] [place] [address], * Cyclic Citrul Peptide Antibody, IgG / IgA (12/28/2024 11:58 AM EDT) CCP Antibodies IgG/IgA 11 0 - 19 units [facility] Comment: Negative <20 Weak positive 20 - 39 Moderate positive 40 - 59 Strong positive >59 Blood 12/28/2024 11:5 8 AM EDT 12/28/2024 [facility] - 01/19/2025 3:06 AM EST Performed at: [address] [place] [id number] Reimbursement Counselor: Edin Tucker PhD, Phone: [phone] Patient Fasting: Y [facility] [employer] LAB BLOOD ORDERABLES F inal Result Performing Organization Address [facility]/ZIP Co de Phone Number [facility] ([facility]) [address] [place] [address], [place] [phone] [facility] [address] [place] [address], [place] [phone] * C-reactive Protein (12/28/2024 11:58 AM EDT) [facility] C-Reactive Protein 1 0 - 10 mg/L [facility] Blood 12/28/2024 11:5 8 AM EDT 12/28/2024 [facility] - 01/19/2025 3:06 AM EST Performed at: [address] [place] [id number] Reimbursement Counselor: Edin Tucker PhD, Phone: [phone] Patient Fasting: Y [facility] LAB BLOOD ORDERABLES F inal Result Performing Organization Address City/[facility]/ZIP Co de Phone Number [facility] [address] [place] [address], [place] [phone] [facility] [address] [place] [address], [place] [phone] * Comprehensive Metabolic Panel (12/28/2024 11:58 AM EDT) [facility] Glucose 85 70 - 99 mg/dL [facility] BUN 11 6 - 20 mg/dL [facility] Creatinine 0.83 0.57 - 1.00 mg/dL [facility] EGFR Result 97 >59 mL/min/1.7 3 [facility] BUN/Creatinine Ratio 13 9 - 23 [facility] Sodium 141 134 - 144 mmol/L [facility] Potassium 4.3 3.5 - 5.2 mmol/L [facility] Chloride 101 96 - 106 mmol/L [facility] Total CO2 24 20 - 29 mmol/L [facility] Calcium 10.1 8.7 - 10.2 mg/dL [facility] Total Protein 7.8 6.0 - 8.5 g/dL [facility] Albumin 5.0 4.0 - 5.0 g/dL [facility] Globulin 2.8 1.5 - 4.5 g/dL [facility] Total Bilirubin 0.7 0.0 - 1.2 mg/dL [facility] Alkaline Phosphatase 82 41 - 116 IU/L [facility] AST (SGOT) 17 0 - 40 IU/L [facility] ALT (SGPT) 15 0 - 32 IU/L [facility] Blood 12/28/2024 11:5 8 AM EDT 12/28/[address] [facility] (AMBULATORY) - 01/19/2025 3:06 AM EST Performed at: 01 - [address] [id number] Reimbursement Counselor: Edin Tucker PhD, Phone: [phone] Patient Fasting: Y Geronimo Holt DO LAB BLOOD ORDERABLES F inal Result [facility] [employer] [facility] (AMBULATORY) [address] [place] [address], [facility] [address] [place] [address], * CK (12/28/2024 11:58 AM EDT) Creatine Kinase 53 32 - 182 U/L [facility] Blood 12/28/2024 11:5 8 AM EDT 12/28/2024 Narrative [facility] (AM[facility]ORY) - 01/19/2025 3:06 AM EST Performed at: 01 - [address] [id number] Reimbursement Counselor: Edin Tucker PhD, Phone: [phone] Patient Fasting: Y [facility] LAB BLOOD ORDERABLES F inal Result Performing Organization Address City/[facility]/ZIP Co de Phone Number [facility] (AMBULATORY) [address] [place] [address], [facility] [address] [place] [address], * Beta-2 Glycoprotein Antibodies (12/28/2024 11:58 AM EDT) Beta-2 Glyco 1 IgG <9 0 - 20 GPI IgG units [facility] Beta-2 Glyco 1 IgA <9 0 - 25 GPI IgA units [facility] Beta-2 Glyco 1 IgM <9 0 - 32 GPI IgM units [facility] Blood 12/28/2024 11:5 8 AM EDT 12/28/2024 [facility] (AMBUL[facility]ORY) - 01/19/2025 3:06 AM EST Performed at: - [address] [id number] Reimbursement Counselor: Edin Tucker PhD, Phone: [phone] Patient Fasting: Y [facility] LAB BLOOD ORDERABLES F inal Result Performing Organization Address City/[facility]/ZIP Co de Phone Number [facility] [address] [place] [address], [place] [phone] [facility] [address] [place] [address], * ANCA Panel (12/28/2024 11:58 AM EDT) ANTI-MPO ANTIBODIES <0.2 0.0 - 0.9 units [facility] ANTI-PR3 ANTIBODIES <0.2 0.0 - 0.9 units [facility] C-ANCA <1:20 Neg:<1:20 titer [facility] P-ANCA <1:20 Neg:<1:20 titer [facility] Comment: The presence of positive fluorescence exhibiting P-ANCA or C-ANCA patterns alone is not specific for the diagnosis of Dragan's Granulomatosis (WG) or microscopic polyangiitis. Decisions about treatment should not be based solely on ANCA IFA results. The International ANCA [employer] Consensus recommends follow up testing of positive sera with both AR-3 and MPO-ANCA enzyme immunoassays. As many as 5% serum samples are positive only by EIA. Ref. AM J Clin Pathol 1999;111:507-513. Atypical pANCA <1:20 Neg:<1:20 titer [facility] Comment: The atypical pANCA pattern has been observed in a significant percentage of patients with ulcerative colitis, primary sclerosing cholangitis and autoimmune hepatitis. Blood 12/28/2024 11:5 8 AM EDT 12/28/[address] [facility] - 01/19/2025 3:06 AM EST Performed at: 03 - [address] [id number] Reimbursement Counselor: Jennifer Shields MD, Phone: [phone] Performed at: 01 - [address] [id number] Reimbursement Counselor: Edin Tucker PhD, Phone: [phone] Patient Fasting: Y Geronimo Holt DO LAB BLOOD ORDERABLES F inal Result [facility] [address] [place] [address], [facility] [address] [place] [address], * (ABNORMAL) JHONNY by IFA, Reflex to Titer and Pattern (12/28/2024 11:58 AM EDT) JHONNY Positive(A ) [facility] Comment: Negative <1:80 Borderline 1:80 Positive >1:80 Blood 12/28/2024 11:5 8 AM EDT 12/28/[address] [facility] - 01/19/2025 3:06 AM EST Performed at: 01 - [facility] [address] [place], [place] [id number] Reimbursement Counselor: Edin Tucker PhD, Phone: [phone] Patient Fasting: Y [facility] LAB BLOOD ORDERABLES F inal Result Performing Organization Address [facility] Co de Phone Number [facility] [address] [place] [address], [place] [phone] [facility] [address] [place] [address], [place] [phone] * (ABNORMAL) JHONNY 12 Plus Profile (RDL) (12/28/2024 11:58 AM EDT) Pathologist [facility] ANTI-NUCLEAR AB BY IFA ([facility]) Positive(A ) Negative [facility] Blood 12/28/2024 11:5 8 AM EDT 12/28/[address] - 01/19/2025 3:06 AM EST Test(s) [id number] Ab by Brittany([facility]) was developed and its performance characteristics determined by [facility]. It has not been cleared or approved by the Food and Drug Administration. Performed at: 04 - [facility] [address] [place] [id number] Reimbursement Counselor: Placido Valencia MD, Phone: [phone] Patient Fasting: Y [facility] LAB BLOOD ORDERABLES F inal Result Performing Organization Address [facility] Co de Phone Number [facility] [address] [place] [address], [place] [phone] [facility] [address] [place] [address], [place] [phone] * 14.3.3 ETA, Rheum. Arthritis (12/28/2024 11:58 AM EDT) 14.3.3 ETA, Rheum. Arthritis <0.20 ng/mL [facility] Comment: Reference Range: < 0.20 Comments: 14-3-3 eta protein is a joint-derived, proinflammatory outpatient interviewing clerk that is implicated in the joint erosion process and pathogenesis of RA. Serum 14-3-3 eta is elevated in both early and established RA. - Diagnostic value: 14-3-3 eta is highly specific for RA. Serum 14-3-3 eta may be especially helpful in identifying patients with early RA where it provides a 15% incremental benefit to the diagnostic sensitivity of markers, Rheumatoid Arthritis (RA) Factor and Cyclic Citrullinated Peptide (CCP) Antibodies, i.e. An additional 15% of early RA patients may be detected by 14-3-3 eta (1). - Correlation with radiographic evidence of joint damage. Positive serum 14-3-3 eta levels are associated with higher rates of joint damage as measured by radiographic assessments (Sharp/van christina Heijde Score) (2). - Serum 14-3-3 eta levels above a threshold of 0.50 ng/ml identify RA patients who will have more rapid radiographic progression, even those who may be in SDAI remission (1). References: 1. Carrier N, et al. Serum levels of 14-3-3 eta protein supplement C-reactive protein and rheumatoid arthritis- associated antibodies to predict clinical and radiographic outcomes in a prospective cohort of patients with recent-onset inflammatory polyarthritis. Arthritis Res Ther 2016;18:37 2. Blair RAE, et al. 14-3-3 eta is a novel outpatient interviewing clerk associated with the pathogenesis of rheumatoid arthritis and joint damage. Arthritis Res Ther 2014;16:R99. This test was developed and its performance characteristics determined by [employer]. It has not been cleared or approved by the Food and Drug Administration. Blood 12/28/2024 11:5 8 AM EDT 12/28/2024 Narrative [facility] ([facility]) - 01/19/2025 3:06 AM EST Performed at: 05 - [facility] [address] [place] [id number] Reimbursement Counselor: Placido Valencia MD, Phone: [phone] Patient Fasting: Y [facility] LAB BLOOD ORDERABLES F inal Result Performing Organization Address City/[facility]/ZIP Co de Phone Number [facility] [address] [place] [address], [place] [phone] [facility] [address] [place] [address], [place] [phone] * Hepatitis Panel, Acute (12/28/2024 11:58 AM EDT) Pathologist [facility] Hep A IgM Negative Negative [facility] Comment: A negative anti-HAV IgM result suggests no recent or current HAV infection. Hepatitis B Surface Ag Negative Negative [facility] Hep B Core IgM Negative Negative [facility] Hepatitis C Ab Non Reactive Non Reactive [facility] Blood 12/28/2024 11:5 8 AM EDT 12/28/[address] [facility] - 01/19/2025 3:06 AM EST Performed at: - [facility] [address] [place] [id number] Reimbursement Counselor: Edin Tucker PhD, Phone: [phone] Patient Fasting: Y [facility] LAB BLOOD ORDERABLES F inal Result Performing Organization Address [facility] Co de Phone Number [facility]för[employer]. Die FördermittelmanufakturCARIL[facility] ([facility]) [address] [place] [address], [place] [phone] [facility] [address] [place] [address], [place] [phone] * QuantiFERON-TB Gold Plus (Li-Hep) (12/28/2024 11:58 AM EDT) [facility] QuantiFERON Incubation Incubation performed. [facility] QUANTIFERON-TB GOLD PLUS Negative Negative [facility] Comment: No response to M tuberculosis antigens detected. Infection with M tuberculosis is unlikely, but high risk individuals should be considered for additional testing (ATS/IDSA/CDC Clinical Practice Guidelines, 2017). The reference range is an Antigen minus Nil result of <0.35 IU/mL. Chemiluminescence immunoassay methodology Blood 12/28/2024 11:5 8 AM EDT 12/28/2024 Narrative [facility] (AMBULATORY) - 01/19/2025 3:06 AM EST Performed at: 01 - [facility] [address] [place], [place] [id number] Reimbursement Counselor: Edin Tucker PhD, Phone: [phone] Patient Fasting: Y [facility] Jayden Holt DO LAB BLOOD ORDERABLES F inal Result [facility] (AMBULATORY) [address] [place] [address], [facility] [address] [place] [address], * XR Chest 2 View (12/28/2024 11:15 AM EDT) Anatomical Region Laterality Modality Body N/A Radiographic Kerry ging 12/28/2024 11:3 1 AM EDT Impressions 12/28/2024 11:31 AM EDT Impression: No active cardiopulmonary disease Electronically Signed: Joey Weller 12/28/2024 11:31 AM EDT Workstation ID: [id number] Narrative 12/28/2024 11:31 AM EDT XR CHEST 2 VW Date of Exam: 12/28/2024 10:59 AM EDT Indication: JHONNY positive. Comparison: None available. Findings: Heart size and pulmonary vasculature are within normal limits. Hilar and mediastinal contours normal. Lungs clear, with no infiltrates or nodules demonstrated. Costophrenic angles sharp Procedure Note Joey Weller MD - 12/28/2024 XR CHEST 2 VW Date of Exam: 12/28/2024 10:59 AM EDT Indication: JHONNY positive. Comparison: None available. Findings: Heart size and pulmonary vasculature are within normal limits. Hilar andmediastinal contours normal. Lungs clear, with no infiltrates or nodulesdemonstrated. Costophrenic angles sharp IMPRESSION: Impression: No active cardiopulmonary disease Electronically Signed: Joey Weller 12/28/2024 11:31 AM EDT Workstation ID: [id number] Geronimo Holt DO IMG DIAGNOSTIC IMAGING ORDERABLES Final Result * XR Sacroiliac Joints 3+ View (12/28/2024 11:15 AM EDT) Anatomical Region Laterality Modality Body, Spine, Pelvis N/A Radiographic Imaging 12/29/2024 3:23 PM EDT Impressions 12/29/2024 3:25 PM EDT Impression: Normal. Electronically Signed: Kevin Ashley MD 12/29/2024 3:25 PM EDT Workstation ID: [id number] Narrative 12/29/2024 3:25 PM EDT XR SACROILIAC JOINTS 3+ VW, XR FOOT 3+ VW BILATERAL, XR HAND 2 VW BILATERAL Date of Exam: 12/28/2024 10:59 AM EDT Indication: JHONNY + Joint pain. Comparison: None available. Findings: Hands: No soft tissue swelling. Normal bone mineralization. The joint spaces are grossly preserved. No acute fracture or traumatic malalignment. Feet: No soft tissue swelling. Normal bone mineralization. The joint spaces are preserved. No discrete erosion or periostitis. SI joints: The SI joints are congruent without evidence of discrete erosion or abnormal sclerosis or bony fusion. No acute osseous findings. Unremarkable appearance of the pubic symphysis and hip joints. Procedure Note Kevin Ashley MD - 12/29/2024 XR SACROILIAC JOINTS 3+ VW, XR FOOT 3+ VW BILATERAL, XR HAND 2 VWBILATERAL Date of Exam: 12/28/2024 10:59 AM EDT Indication: JHONNY + Joint pain. Comparison: None available. Findings: Hands: No soft tissue swelling. Normal bone mineralization. The jointspaces are grossly preserved. No acute fracture or traumaticmalalignment. Feet: No soft tissue swelling. Normal bone mineralization. The jointspaces are preserved. No discrete erosion or periostitis. SI joints: The SI joints are congruent without evidence of discreteerosion or abnormal sclerosis or bony fusion. No acute osseous findings.Unremarkable appearance of the pubic symphysis and hip joints. IMPRESSION: Impression: Normal. Electronically Signed: Kevin Ashley MD 12/29/2024 3:25 PM EDT Workstation ID: [id number] Geronimo Holt DO IMG DIAGNOSTIC IMAGING ORDERABLES Final Result * XR Foot 3+ View Bilateral (12/28/2024 11:15 AM EDT) Anatomical Region Laterality Modality Lower Extremities, Foot Bilateral Radiogra phic Imaging 12/29/2024 3:23 PM EDT Impressions 12/29/2024 3:25 PM EDT Impression: Normal. Electronically Signed: Kevin Ashley MD 12/29/2024 3:25 PM EDT Workstation ID: [id number] Narrative 12/29/2024 3:25 PM EDT XR SACROILIAC JOINTS 3+ VW, XR FOOT 3+ VW BILATERAL, XR HAND 2 VW BILATERAL Date of Exam: 12/28/2024 10:59 AM EDT Indication: JHONNY + Joint pain. Comparison: None available. Findings: Hands: No soft tissue swelling. Normal bone mineralization. The joint spaces are grossly preserved. No acute fracture or traumatic malalignment. Feet: No soft tissue swelling. Normal bone mineralization. The joint spaces are preserved. No discrete erosion or periostitis. SI joints: The SI joints are congruent without evidence of discrete erosion or abnormal sclerosis or bony fusion. No acute osseous findings. Unremarkable appearance of the pubic symphysis and hip joints. Procedure Note Kevin Ashley MD - 12/29/2024 XR SACROILIAC JOINTS 3+ VW, XR FOOT 3+ VW BILATERAL, XR HAND 2 VWBILATERAL Date of Exam: 12/28/2024 10:59 AM EDT Indication: JHONNY + Joint pain. Comparison: None available. Findings: Hands: No soft tissue swelling. Normal bone mineralization. The jointspaces are grossly preserved. No acute fracture or traumaticmalalignment. Feet: No soft tissue swelling. Normal bone mineralization. The jointspaces are preserved. No discrete erosion or periostitis. SI joints: The SI joints are congruent without evidence of discreteerosion or abnormal sclerosis or bony fusion. No acute osseous findings.Unremarkable appearance of the pubic symphysis and hip joints. IMPRESSION: Impression: Normal. Electronically Signed: Kevin Ashley MD 12/29/2024 3:25 PM EDT Workstation ID: [id number] Geronimo Holt DO IMG DIAGNOSTIC IMAGING ORDERABLES Final Result * XR Hand 2 View Bilateral (12/28/2024 11:15 AM EDT) Anatomical Region Laterality Modality Upper Extremities, Hand Bilateral Radiogra phic Imaging 12/29/2024 3:23 PM EDT Impressions 12/29/2024 3:25 PM EDT Impression: Normal. Electronically Signed: Kevin Ashley MD 12/29/2024 3:25 PM EDT Workstation ID: [id number] Narrative 12/29/2024 3:25 PM EDT XR SACROILIAC JOINTS 3+ VW, XR FOOT 3+ VW BILATERAL, XR HAND 2 VW BILATERAL Date of Exam: 12/28/2024 10:59 AM EDT Indication: JHONNY + Joint pain. Comparison: None available. Findings: Hands: No soft tissue swelling. Normal bone mineralization. The joint spaces are grossly preserved. No acute fracture or traumatic malalignment. Feet: No soft tissue swelling. Normal bone mineralization. The joint spaces are preserved. No discrete erosion or periostitis. SI joints: The SI joints are congruent without evidence of discrete erosion or abnormal sclerosis or bony fusion. No acute osseous findings. Unremarkable appearance of the pubic symphysis and hip joints. Procedure Note Kevin Ashley MD - 12/29/2024 XR SACROILIAC JOINTS 3+ VW, XR FOOT 3+ VW BILATERAL, XR HAND 2 VWBILATERAL Date of Exam: 12/28/2024 10:59 AM EDT Indication: JHONNY + Joint pain. Comparison: None available. Findings: Hands: No soft tissue swelling. Normal bone mineralization. The jointspaces are grossly preserved. No acute fracture or traumaticmalalignment. Feet: No soft tissue swelling. Normal bone mineralization. The jointspaces are preserved. No discrete erosion or periostitis. SI joints: The SI joints are congruent without evidence of discreteerosion or abnormal sclerosis or bony fusion. No acute osseous findings.Unremarkable appearance of the pubic symphysis and hip joints. IMPRESSION: Impression: Normal. Electronically Signed: Kevin Ashley MD 12/29/2024 3:25 PM EDT Workstation ID: [id number] Geronimo Holt DO IMG DIAGNOSTIC IMAGING ORDERABLES Final Result documented in this encounter Visit Diagnoses Diagnosis Arthralgia, unspecified joint- Primary Fatigue, unspecified type JHONNY positive Arthralgia, unspecified joint Fatigue, unspecified type JHONNY positive documented in this encounter Care Teams Taker Down Relationship Specialty Start Date End Date Eran Campoverde MD [address] [place] [address] PCP - General Family Medicine 09/30/23 documented as of this encounter
--- OUTSIDE RECORDS SUMMARY | 2024-12-28 10:00 | XMS_ITS | Encounter Summary ---
Author Organization [facility] Address [address] [place] [address] Care Team Providers Care Street Car Inspector Name Role Phone Eran Campoverde MD Primary Care Provider [phone]- [phone] Encounter Details Date Type Department Care Team (Latest Contact Info) Description 12/28/2024 11:00 AM EDT Ancillary Procedure [facility] [address] [address] Arthralgia, unspecified joint; Fatigue, unspecified type; JHONNY positive Social History [...] on file documented as of this encounter Plan of Treatment Upcoming Encounters Date Type Department Care Team (Late st Contact Info) Description 04/05/2025 10:45 AM EST Office Visit [facility] [address] [facility] [address] [place] [address] Alexa Tony APRN [address] [facility] [address] [place], [place] [id number] documented as of this encounter Procedures Procedure Name Priority Date/Time Associated Diagnosis Comments XR SACROILIAC JOINTS 3+ VW Routine 12/28/2024 11:15 AM EDT Arthralgia, unspecified joint Fatigue, unspecified type JHONNY positive XR HAND 2 VW BILATERAL Routine 12/28/2024 11:15 AM EDT Arthralgia, unspecified joint Fatigue, unspecified type JHONNY positive XR FOOT 3+ VW BILATERAL Routine 12/28/2024 11:15 AM EDT Arthralgia, unspecified joint Fatigue, unspecified type JHONNY positive XR CHEST 2 VW Routine 12/28/2024 11:15 AM EDT Arthralgia, unspecified joint Fatigue, unspecified type JHONNY positive documented in this encounter Results * XR Chest 2 View (12/28/2024 11:15 [...] MD 12/29/2024 3:25 PM EDT Workstation ID: [id number] Narrative 12/29/2024 3:25 PM EDT XR SACROILIAC [...] MD 12/29/2024 3:25 PM EDT Workstation ID: [id number] us Geronimo Holt DO IMG DIAGNOSTIC IMAGING ORDERABLES Final Result * XR Hand 2 View Bilateral (12/28/2024 11:15 AM EDT) Anatomical Region Laterality Modality Upper Extremities, Hand Bilateral Radiogra phic Imaging 12/29/2024 3:23 PM EDT Impressions 12/29/2024 3:25 PM EDT Impression: Normal. Electronically Signed: Kevin Ashley MD 12/29/2024 3:25 PM EDT Workstation ID: [id number] Narrative 12/29/2024 3:25 PM EDT XR SACROILIAC [...] MD 12/29/2024 3:25 PM EDT Workstation ID: [id number] [facility] DO IM DIAGNOSTIC IMAGING ORDERABLES Final Result documented in this encounter Visit Diagnoses Diagnosis Arthralgia, unspecified joint Fatigue, unspecified type JHONNY positive documented in this encounter Care Teams Street Car Inspector Relationship Specialty Start Date End Date Eran Campoverde MD [address] [place] [address] PCP - General Family Medicine 09/30/23 documented as of this encounter
[2025-01-30 16:59] LABS: Hematocrit 47.0 % (37.0-47.0); Hemoglobin 15.3 g/dL (12.2-16.2); Immature Granulocytes % 0.2 %; Mean Corpuscular HGB Conc 32.6 g/dL (31.8-35.4); Mean Corpuscular Hemoglobin 31.5 pg (27.0-31.2); Mean Corpuscular Volume 96.7 fl (81-99); Nucleated Red Blood Cells % 0 %; Platelet Count 196 K/mm3 (142-424); Red Blood Count 4.86 M/mm3 (4.20-5.40); Red Cell Distribution Width-SD 45.2 fL; White Blood Count 5.9 K/mm3 (4.8-10.8)
[2025-01-30 17:41] LABS: HCG Qualitative, Serum Negative (Negative)
--- OUTSIDE RECORDS SUMMARY | 2025-01-31 14:16 | XMS_ITS | Encounter Summary ---
Author Organization [facility] Address [address] [place] [address] Care Team Providers Care Firer Low Pressure Name Role Phone Eran Campoverde MD Primary Care Provider [phone]- [phone] Encounter Details Date Type Department Care Team (Late Contact Info) Description 12/29/2024 Patient rounding ([facility] only) [facility] [address] [place] [address] Анна Salgado RegSched Rep Social History Tobacco Use Types Packs/Day Years [...] on file documented as of this encounter Progress Notes * Анна Salgado RegSched Rep - 12/29/2024 9:21 AM EDT Images from the original note were not included. documented in this encounter Plan of Treatment Upcoming Encounters Date Type Department Care Team (Late Contact Info) Description 04/05/2025 10:45 AM EST Office Visit [facility] [address] [address] Alexa Tony APRN [address] [place] [address] documented as of this encounter Visit Diagnoses Not on filedocumented in this encounter Care Teams Firer Low Pressure Relationship Specialty Start Date End Date Eran Campoverde MD [address] [place] [address] PCP - General Family Medicine 09/30/23 documented as of this encounter
--- OUTSIDE RECORDS SUMMARY | 2025-01-31 14:16 | XMS_ITS | Encounter Summary ---
Author Organization [facility] Address [address] [place] [address] Care Team Providers Care Hazardous Waste Material Technician Name Role Phone Eran Campoverde MD Primary Care Provider +1- [phone] Encounter Details Date Type Department Care Team (Latest Contact Info) Description 12/28/2024 Travel Social History Tobacco Use Types Packs/Day Years [...] Description 04/05/2025 10:45 AM EST Office Visit [facility] [address] [place] [address] Alexa Tony APRN [address] [facility] [address] [place] [address] documented as of this encounter Visit Diagnoses Not on filedocumented in this encounter Care Teams Hazardous Waste Material Technician Relationship Specialty Start Date End Date Eran Campoverde MD [address] [place] [address] PCP - General Family Medicine 09/30/23 documented as of this encounter
--- OUTSIDE RECORDS SUMMARY | 2025-01-31 14:16 | XMS_ITS | Clinical Summary ---
Author Organization [facility] Address [address] [place] [address] Care Team Providers Care Vice President Fixed Income Name Role Phone Joey Perez MD Primary Care Provider [phone] Allergies No known active allergies Medications * This document contains information received from the source organization and may not represent a complete record from that organization. Vit-Fe Fumarate-FA (multivitamin ) 60-1 MG tablet tablet Take 1 tablet by mouth 1 (one) time each day. Active loratadine (Claritin) 10 MG tablet Take 10 mg by mouth 1 (one) time each day. Active acetaminophen (Tylenol) 325 MG tablet Take 2 tablets (650 mg total) by mouth every 6 (six) hours if needed for pain. 30 tablet 2 11/15/2021 Active docusate sodium 250 MG capsule Take 250 mg by mouth 2 (two) times a day if needed for constipation . 60 capsule 1 11/15/2021 Active ibuprofen 600 MG tabletIndication s:Mild to Moderate Pain Take 1 tablet (600 mg total) by mouth every 6 (six) hours if needed for mild pain. 30 tablet 1 11/15/2021 Active buPROPion XL (Wellbutrin XL) 150 MG 24 hr tabletIndication s:Routine follow-up,Health care maintenance Take 1 tablet (150 mg total) by mouth 1 (one) time each day. Do not crush, chew, or split. 90 tablet 07/07/2022 Active Active Problems Problem Noted Date Diagnosed Date Asthma 10/22/2016 Perennial allergic rhinitis 10/22/2016 Migraine without aura and wi thout status migrainosus, not intractable 10/22/2016 Assessment & Plan (04/08/2021 4:33 PM EST): Suggested she contact her primary MD who treats her migraines for other suggestions. Discussed use of 2 extra strength Tylenol at a time to see if she had better relief vs occasional Excedrin migraine. Resolved Problems Problem Noted Date Diagnosed Date Resolved Date Encounter for elective induction of labor 11/11/2021 11/15/2021 intolerance to labor, delivered, current hospitalization 11/06/2021 11/15/2021 Overview (11/12/2021): Added automatically from request for surgery [id number] 04/08/2021 11/20/2024 Assessment & Plan (04/08/2021 4:35 PM EST): Screening folder given and explained to patient. Discussed location of triage. Pt received education on the benefits and management of . Discussed genetic testing options. labs done today. F/U in 4 - 6 weeks. Will schedule dating scan. Precautions given. Immunizations Immunization Administration Dates Next Due Hep A, Adult 12/15/2017 Hep A, Unspecified 06/04/2018 Hep B, adult 06/04/2018,12/15/2017,07/02/2017 Influenza, Unspecified 11/25/2019,12/25/2018, Influenza, injectable, quadr ivalent, preservative free 10/23/2021,12/06/2020 MMR 05/07/1999,06/29/1995 [employer] COVID-19 Vac cine (Purple Cap) 12+ 11/26/2020,03/12/2020,02/20/2020 Rho (D) Immune Globulin 11/13/2021,08/16/2021 Tdap 09/05/2021,08/31/2014 Family History Medical History Relation Name Comments Hypertension Father Relation Name Status Comments Father Social History Tobacco Use Types Packs/Day Years Used Date Smoking Tobacco: Never Smokeless Tobacco: Never Tobacco Cessation:Counseling Given: Not Answered Alcohol Use Standard Drinks/Week Comments Yes 0 (1 standard drink = 0.6 oz pur e alcohol) social [place] Depression Scale Answer Date Recorded [place] Depression Scale Total 18 04/03/2022 The thought of harming myself has occurred to me . Never 04/03/2022 Comments No Sex and Gender Information Value Date Recorded Sex Assigned at Not on file Legal Sex Female 8:23 PM EDT Gender Identity Not on file Sexual Orientation Not on file Last Filed Vital Signs Vital Sign Reading Time Taken Comments Blood Pressure 117/85 02/17/2022 2:45 PM EST Pulse 83 11/15/2021 8:36 AM EDT Temperature 36.8 C (98.3 F) 11/15/2021 3:07 AM EDT Respiratory Rate 18 11/14/2021 8:05 AM EDT Oxygen Saturation 98% 11/15/2021 8:36 AM EDT Inhaled Oxygen Concentration - - Weight 76.2 kg (167 lb 15.9 oz) 02/17/2022 2:45 PM EST Height 160 cm (5' 3 ) 02/17/2022 2:45 PM EST Body Mass Index 29.76 02/17/2022 2:45 PM EST Plan of Treatment Health Maintenance Due Date Last Done Comments [facility]-Infant/Child/Adol SDOH Screenings 1994 [facility]-Obesity Intervention 02/07/2000 [facility]-Varicella Vaccines (1 of 2 - 13+ 2-dose series) 2007 [facility]- SDOH Screenings 02/07/2012 [facility]-Adult SDOH Screenings 02/07/2012 [facility]-Pneumococcal Vaccine: Pediatrics (0 to 5 Years) and At-Risk Patients (6 to 49 Years) (1 of 2 - PCV) 2013 HPV Vaccines (1 - 3-dose SCDM series) 2021 [facility]-Pap Smear 10/05/2022 10/06/2019, 10/22/2016 [facility]-Depression Screening 04/03/2023 04/03/2022 [facility]-Cervical Cancer Screening 10/05/2024 [facility]-HPV/Cotest 10/05/2024 10/06/2019, 10/22/2016 [id number] Vaccine ( season) 2024 11/26/2020, 03/12/2020, 02/20/2020 [facility]-Influenza Vaccine (#1) 10/31/202410/232, 12/06/2020, 11/25/2019, Additional history exists [facility]-DTaP,Tdap,and Td Vaccines (3 - Td or Tdap) 09/06/2031 09/05/2021, 08/31/2014 [facility]-Zoster Vaccines (1 of 2) 02/07/2044 [facility]-Hepatitis A Vaccines Aged Out 06/04/2018, 11/30 No longer eligible based on patient's age to complete this topic [facility]-Hepatitis B Vaccines Completed 019, 12/15/2017, 07/02/2017 [facility]-HIV Screening Completed 04/08/2021 [facility]-Hepatitis C Screening Completed 04/08/2021, [facility]-HIB Vaccines Aged Out No longer e ligible based on patient's age to complete this topic [facility]-IPV Vaccines Aged Out No longer e ligible based on patient's age to complete this topic [facility]-Rotavirus Vaccines Aged Out No lo nger eligible based on patient's age to complete this topic Procedures Procedure Name Priority Date/Time Associated Diagnosis Comments HEPATITIS C ANTIBODY W/REFLEX TO HCV QUANT PCR Routine 04/08/2021 2:51 PM EST 8 weeks gestation of HIV 1/2 ANTIBODY/ANTIGEN SCREEN WITH REFLEX TO HIV I/II DIFFERENTIATION Routine 04/08/2021 2:51 PM EST 8 weeks gestation of CYTO DATA CONVERSION Routine 10/06/2019 12:00 AM EDT from Last 3 Months or Most Recently Relevant to Health Maintenance Results * HIV 1 & 2 Antibody/Antigen Screen (04/08/2021 2:51 PM EST) HIV 1 & 2 Antibody/Anti gen Screen Nonreactive Nonreactive 04/08/2021 7:[address] [facility] Blood Venous blood specimen / Unknown Venipuncture / Unknown 04/08/2021 2:51 PM EST 04/08/2021 2:52 PM EST Jalyn Frank MD LAB BLOOD ORDERABLES Fin al Result [facility] [address] [place] [address] * Hepatitis C Antibody (04/08/2021 2:51 PM EST) Hepatitis C Antibody Negative Negative 04/08/2021 7:[address] [facility] Blood Venous blood specimen / Unknown Venipuncture / Unknown 04/08/2021 2:51 PM EST 04/08/2021 2:52 PM EST us Jalyn Frank MD LAB BLOOD ORDERABLES Fin al Result Performing Organization Address City/[facility]/ZIP Co de Phone Number [facility] [address] [place] [address] * Cytology (10/06/2019 12:00 AM EDT) 10/06/2019 10/07/2019 10: 03 AM EDT Narrative COPATH - 10/14/2019 3:01 PM EDT [facility] MR #: [id number] [facility] [address] [place], [place] [address] 1995 (Age: 24) FW Collect Date: 10/06/2019 00:00 Receipt Date: 10/07/2019 10:03 Page 1 DEPARTMENT OF PATHOLOGY AND LABORATORY MEDICINE CYTOPATHOLOGY REPORT Email: [email or web address] ATTENDING MD/Practitioner: Angela Rendon M.D. Service: [facility] Location: [facility] Reported: 10/14/2019 15:01 Collected: 10/06/2019 00:00 INTERPRETATION A. THIN PREP (CERVICAL/VAGINAL): NEGATIVE FOR INTRAEPITHELIAL LESION OR MALIGNANCY. SATISFACTORY FOR EVALUATION; ENDOCERVICAL/ TRANSFORMATION ZONE COMPONENT PRESENT. Slide scanned and imaged by [employer] ThinPrep Imaging System with manual review of all selected marroquin. Electronically Signed Out By TASNEEM Burris (ASCP) TASNEEM Burris (ASCP) Cervical cytology is a screening test primarily for squamous cancers and precursors and has associated false negative and positive results. New technologies such as liquid based sampling may decrease but will not eliminate all false negative results. Regular screening and follow-up of unexplained clinical signs and symptoms are recommended to minimize false negative results. Please see the ASCCP website (www.asccp.org) for followup recommendations. If HPV testing was requested, correlation with the results is suggested (please call Microbiology at [phone] for results). CLINICAL INFORMATION: Menstrual History: Cyclic Date of Last Menstrual Period: 31Aug2019 Contraceptive History: control pills Other Clinical Conditions: If ASCUS and > 24 years of age, HPV/DNA testing requested. SPECIMEN DESCRIPTION: A: THIN PREP (CERVICAL/VAGINAL) THIN PREP PROCESS CELLULAR ENHANCEMENT ICD: F: A; RT IMAGE 15734 SNOMED CODES: A; [id number] In cases where a pathologist has signed out the report, the service has been rendered in part by a resident. The signing pathologist has performed and is responsible for the reported pathologic evaluation. us Consuelo Rendon MD LAB PATHOLOGY ORDERABLES Fin al Result COP[facility] from Last 3 Months or Most Recently Relevant to Health Maintenance Advance Directives * Full Code (Latest Code Status on File) Date Activated Date Inactivated Comments 11/11/2021 6:26 AM 11/15/2021 5:43 PM Question Answer Comments Patient has decision-making capacity? Yes Care Teams Vice President Fixed Income Relationship Specialty Start Date End Date Joey Perez MD [address] [place] [address] PCP - General 07/13/20
--- OUTSIDE RECORDS SUMMARY | 2025-01-31 14:16 | XMS_ITS | Encounter Summary ---
Author Organization [facility] Address [address] [place] [address] Care Team Providers Care Helmet Binder Name Role Phone Eran Campoverde MD Primary Care Provider [phone]- [phone] Encounter Details Date Type Department Care Team (Late Contact Info) Description 12/28/2024 Results Follow-Up [facility] [address] [address] Geronimo Holt DO [address] [id number] Social History Tobacco Use Types Packs/Day Years [...] Office Visit [facility] [address] [address] Alexa Tony APRN [address] [id number] documented as of this encounter Visit Diagnoses Not on filedocumented in this encounter Care Teams Helmet Binder Relationship Specialty Start Date End Date Eran Campoverde MD [address] [place] [address] PCP - General Family Medicine 09/30/23 documented as of this encounter
--- OUTSIDE RECORDS SUMMARY | 2025-01-31 14:16 | XMS_ITS | Clinical Summary ---
Author Organization [facility] Address [address] [place] [address] Care Team Providers Care Digital Advertising Specialist Name Role Phone Eran Campoverde MD Primary Care Provider [phone] Allergies No known active allergies Medications Vit-Fe Fumarate-FA ( vitamin 27-0.8) 27-0.8 MG tablet tablet Take 1 tablet by mouth Daily. 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 Fortunately anti-WADE antibodies have not been associated with hemolytic disease of the fetus or according to ACOG guidelines. There have been case reports of hemolytic disease in populations. Additionally titers of this were less than 1. Traditionally titers are not considered critical for antibodies until they reach 1:16. Ultrasound today shows normal appearing anatomy and normal MCA Dopplers. Discussed case with Blood Bank given this rare antibody. We discussed recommended repeat Type and Screen here which patient is agreeable. Would recommend repeat Type and screen in 4 weeks with primary obgyn. Diet controlled gestational diabetes mellitus (GDM) in third trimester 09/30/2023 Assessment & Plan (09/30/2023 9:42 AM EDT): Patient reports normal glucose values and reports sending them weekly to primary obgyn. GLUCOSE MONITORING Target plasma blood glucose values in are less than 95 mg/dL fasting, and less than 120 mg/dL at 2 hour postprandially or 140 mg/dL at 1 hour postprandially. Medical therapy for glycemic control is indicated if target values are not achieved after 1-2 weeks of dietary therapy, and could include oral hypoglycemic agents such as metformin or insulin therapy. We discussed insulin treatment as the gold standard. MATERNAL RISKS Insulin resistance places women at higher risk for preeclampsia. Those with gestational diabetes are also at higher risk of developing diabetes in their lifetime outside of . A 2-hour oral glucose tolerance test at 6 weeks should be completed to clarify a diagnosis of pregestational diabetes. Screening for diabetes should be performed every 1-3 years after that. AND RISKS Diabetes in increases risk of macrosomia, with associated injuries including nerve palsies, fractures and cephalhematoma. Macrosomia increases the need for delivery and has been linked to the development of adolescent obesity. Glycemic control is important to reducing these risks. morbidities among infants of diabetic mothers include hypoglycemia, hyperbilirubinemia, and metabolic instability. In addition, respiratory distress can result from delayed lung maturity. Intrapartum glycemic control to maintain maternal glucose levels within a narrow range (between 80-110 mg/dL) reduces risks of asphyxia and hypoglycemia. Close monitoring of the is necessary. RECOMMENDATIONS: - We would be happy to comanage diabetes if desired by primary obgyn. - Recommend growth ultrasound in your office in 4 weeks. - Elective delivery for suspected macrosomia at estimated weight of greater than 4500 grams. - Plan for 2-hour OGTT at 6 weeks . - Continuation of lifestyle changes PP to lower risk of type 2 DM in the future. Encounters Date Type Department Care Team Description 12/29/2024 [place] [place] [facility] [address] [address] Анна Salgado RegSched Rep 12/28/2024 11:00 AM EDT Ancillary Procedure [facility] [address] [address] Arthralgia, unspecified joint; Fatigue, unspecified type; JHONNY positive 12/28/2024 10:00 AM EDT Office Visit [facility] RHE[facility] [address] [place] [phone] Geronimo Holt DO Arthralgia, unspecified joint (Primary Dx); Fatigue, unspecified type; JHONNY positive 12/28/2024 Results Follow-Up [facility] [address] [place] [phone] Geronimo Holt DO 12/28/2024 Travel from Last 3 Months Social History Tobacco Use Types Packs/Day Years Used Date Smoking Tobacco: Never Smokeless Tobacco: Never Tobacco Cessation:Counseling Given: Not Answered Alcohol Use Standard Drinks/Week Comments Not Currently [...] 16 12/28/2024 9:50 AM EDT Oxygen Saturation 100% 04/22/2016 11:03 AM EST Inhaled Oxygen Concentration - - Weight 67.6 kg (149 lb) 12/28/2024 9:50 AM EDT Height 157.5 cm (5' 2.01 ) 12/28/2024 9:50 AM ED T Body Mass Index 27.25 12/28/2024 9:50 AM EDT Plan of Treatment Upcoming Encounters Date Type Department Care Team (Late st Contact Info) Description 04/05/2025 10:45 AM EST Office Visit [facility] R[facility] [address] [address] Alexa Tony APRN [address] [id number] Health Maintenance Due Date Last Done Comments Pneumococcal Vaccine 0-49 (1 of 2 - PCV) 2013 ANNUAL PHYSICAL 10/18/2015 Annual Gynecologic Pelvic an d Breast Exam 10/18/2016 10/18/2015 PAP SMEAR 10/17/2018 10/18/2015 INFLUENZA VACCINE 09/30/2024 10/23/2021, , 11/25/2019, Additional history exists TDAP/TD VACCINES (4 - Td or Tdap) 10/06/2033 10/07/2023, 09/05/2021, 08/31/2014 HEPATITIS C SCREENING Completed 12/28/2024 , 04/08/2021, 04/08/2021 Procedures Procedure Name Priority Date/Time Associated Diagnosis Comments CONV STEFANY STAINING PATTERNS Routine 12/28/2024 11:58 AM EDT HEPATITIS C VIRUS INTERPRETATION Routine 12/28/2024 11:58 AM EDT CBC AND DIFFERENTIAL Routine 12/28/2024 11:58 AM EDT CONV JHONNY 12 PLUS PROFILE, POSITIVE Routine 12/28/2024 11:58 AM EDT QUANTIFERON-TB GOLD PLUS Routine 12/28/2024 11:58 AM EDT ~MICROSCOPIC EXAMINATION Routine 12/28/2024 11:58 AM EDT ALDOLASE Routine 12/28/2024 11:58 AM EDT Arthralgia, unspecified joint Fatigue, unspecified type JHONNY positive UA/M W/RFLX CULTURE ([facility] ONLY) Routine 12/28/2024 11:58 AM EDT Arthralgia, unspecified joint Fatigue, unspecified type JHONNY positive TSH+FREE T4 Routine 12/28/2024 11:58 AM EDT [...] unspecified joint Fatigue, unspecified type JHONNY positive HLA-B27 ANTIGEN Routine 12/28/2024 11:58 AM EDT Arthralgia, unspecified joint Fatigue, unspecified type JHONNY positive CYCLIC CITRUL PEPTIDE ANTIBODY, IGG/IGA Routine 12/28/2024 11:58 AM EDT Arthralgia, unspecified joint Fatigue, unspecified type JHONNY positive C-REACTIVE PROTEIN Routine 12/28/2024 11 :58 AM [...] joint Fatigue, unspecified type JHONNY positive JHONNY 12 PLUS PROFILE (RDL) Routine 12/28/2024 11:58 AM EDT Arthralgia, unspecified joint Fatigue, unspecified type JHONNY positive 14.3.3 ETA, RHEUM. ARTHRITIS Routine 12/28/2024 11:58 AM EDT Arthralgia, unspecified joint Fatigue, unspecified type JHONNY positive HEPATITIS PANEL, ACUTE Routine 11:58 AM EDT Arthralgia, unspecified joint Fatigue, unspecified type JHONNY positive QUANTIFERON-TB GOLD PLUS (LI-HEP) Routine 12/28/2024 11:58 AM EDT Arthralgia, unspecified joint Fatigue, unspecified type JHONNY positive XR CHEST 2 VW Routine 12/28/2024 11:15 AM EDT Arthralgia, unspecified joint Fatigue, unspecified type JHONNY positive XR FOOT 3+ VW BILATERAL Routine 12/28/2024 11:15 AM EDT Arthralgia, unspecified joint Fatigue, unspecified type JHONNY positive XR HAND 2 VW BILATERAL Routine 11:15 AM EDT Arthralgia, unspecified joint Fatigue, unspecified type JHONNY positive XR SACROILIAC JOINTS 3+ VW Routine 12/28/2024 11:15 AM EDT Arthralgia, unspecified joint Fatigue, unspecified type JHONNY positive SCANNED - PAP SMEAR 10/18/2015 from Last 3 Months or Most Recently Relevant to Health Maintenance Results * Hepatitis C Virus Interpretation (12/28/2024 11:58 AM EDT) Interpretation Comment [facility] Comment: Not infected with HCV unless early or acute infection is suspected (which may be delayed in an immunocompromised individual), or other evidence exists to indicate HCV infection. 12/28/2024 11:5 8 AM EDT 12/28/2024 Narrative [facility] - 01/19/2025 3:06 AM EST Performed at: 01 - [facility] [address] [place], [place] [id number] Staff Readiness Officer: Edin Tucker PhD, Phone: [phone] Patient Fasting: Y us Geronimo Jayden Jonathon DO LAB BLOOD ORDERABLES F inal Result [facility] (AMBULATORY) [address] [place] [address], [facility] [address] [place] [address], * (ABNORMAL) JHONNY 12 Plus Profile, Positive [...] (RDL) <20 <20 Units [facility] Anti-U1 PROFESSOR OF FINE ART Ab <20 <20 Units [facility] ANTI-RO [...] [facility] Comment: Interpretation for Anti-Sm, Anti-U1 PROFESSOR OF FINE ART, Anti-Ro, Anti-La: Negative: <20 Weak Positive: 20 [...] 12/28/2024 11:5 8 AM EDT 12/28/2024 Narrative [facility] - 01/19/2025 3:06 AM EST Performed at: 04 - [employer] [address] [place] [id number] Staff Readiness Officer: Placido Valencia MD, Phone: [phone] Patient Fasting: Y us Geronimo Holt DO LAB BLOOD ORDERABLES E dited Result - Final [facility] [address] [place] [address], [place] [phone] [facility] [address] [place] [address], [place] [phone] * (ABNORMAL) JHONNY 12 Plus Profile (RDL) (12/28/2024 11:58 AM EDT) Pathologist [facility] ANTI-NUCLEAR AB BY IFA (RDL) Positive(A ) Negative [facility] Blood 12/28/2024 11:5 8 AM EDT 12/28/2024 Narrative [facility] (AMBULATORY) - 01/19/2025 3:06 AM EST Test(s) [id number] Ab by Brittany(RDL) was developed and its performance characteristics determined by [facility]. It has not been cleared or approved by the Food and Drug Administration. Performed at: - [facility] [address] [place] [id number] Staff Readiness Officer: Placido Valencia MD, Phone: [phone] Patient Fasting: Y us Geronimo Holt DO LAB BLOOD ORDERABLES F inal Result [facility] (AMBULATORY) [address] [place] [address], [facility] [address] [place] [address], * QuantiFERON-TB Gold Plus (12/28/2024 11:58 AM EDT) [facility] QuantiFERON Criteria Comment [facility] Comment: QuantiFERON-TB Gold Plus is a [...] [facility] QuantiFERON Mitogen Value 9.67 IU/mL [facility] 12/28/2024 11:5 8 AM EDT 12/28/2024 Narrative [facility] (AMBULATORY) - 01/19/2025 3:06 AM EST [facility]formed at: - [facility] [address] [place], [place] [id number] Staff Readiness Officer: Edin Tucker PhD, Phone: [phone] Patient Fasting: Y [facility] LAB BLOOD ORDERABLES F inal Result [facility] (AMBULATORY) [address] [place] [address], [place] [phone] [facility] [address] [place] [address], [place] [phone] * QuantiFERON-TB Gold Plus (Li-Hep) (12/28/2024 11:58 AM EDT) Pathologist [facility] QuantiFERON Incubation Incubation performed. [facility] QUANTIFERON-TB [...] Blood 12/28/2024 11:5 8 AM EDT 12/28/2024 [facility] - 01/19/2025 3:06 AM EST Performed at: - [facility] [address] [place] [id number] Staff Readiness Officer: Edin Tucker PhD, Phone: [phone] Patient Fasting: Y [facility] LAB BLOOD ORDERABLES F inal Result [facility] (AMBULATORY) [address] [place] [address], [place] [phone] [facility] [address] [place] [address], [place] [phone] * RF Isotypes, IgG, IgA, IgM EIA (12/28/2024 11:58 AM EDT) [facility] RF, IGG BY EIA (RDL) <7 <7 U [facility] RF, IGA BY EIA (RDL) <7 <7 U [facility] RF, IGM BY EIA (RDL) <7 <7 U [facility] Blood 12/28/2024 11:5 8 AM EDT 12/28/2024 Narrative [facility] (AMBULATORY) - 01/19/2025 3:06 AM EST Performed at: 04 - [facility] [employer] [address] [place] [id number] Staff Readiness Officer: Placido Valencia MD, Phone: [phone] Patient Fasting: Y us Geronimo Holt DO LAB BLOOD ORDERABLES F inal Result [facility] (AMBULATORY) [address] [place] [address], [facility] [address] [place] [address], * 14.3.3 ETA, Rheum. Arthritis (12/28/2024 11:58 AM EDT) Pathologist [facility] 14.3.3 ETA, Rheum. Arthritis <0.20 ng/mL [facility] Comment: Reference Range: < 0.20 Comments: 14-3-3 eta protein is a joint-derived, proinflammatory snapper on that is implicated in the joint erosion [...] be in SDAI remission (1). References: 1. Eh N, et al. Serum levels of 14-3-3 eta protein supplement C-reactive protein and rheumatoid arthritis- associated antibodies to predict clinical and radiographic outcomes in a prospective cohort of patients with recent-onset inflammatory polyarthritis. Arthritis Res Ther 2016;18:37 2. Blair RAE, et al. 14-3-3 eta is a novel snapper on associated with the pathogenesis of rheumatoid arthritis and joint damage. Arthritis Res Ther 2014;16:R99. This test was developed and its performance characteristics determined by [employer]. It has not been cleared or approved by the Food and Drug Administration. Blood 12/28/2024 11:5 8 AM EDT 12/28/2024 Narrative [facility] (AMBULATORY) - 01/19/2025 3:06 AM EST Performed at: [facility] [employer] [address] [place] [id number] Staff Readiness Officer: Placido Valencia MD, Phone: [phone] Patient Fasting: Y us Geronimo Holt DO LAB BLOOD ORDERABLES F inal Result [facility] (AMBULATORY) [address] [place] [address], [place] [phone] [facility] [address] [place] [address], [place] [phone] * UA / M With / Rflx Culture([facility] ONLY) - Urine, Clean Catch (12/28/2024 11:58 AM EDT) Specific Dawson, UA 1.008 1.005 - 1.030 [facility] [...] - 01/19/2025 3:06 AM EST Performed at: [address] [id number] Staff Readiness Officer: Edin Tucker PhD, Phone: [phone] Patient Fasting: Y Geronimo Holt DO URINE ORDERABLES Final Result Performing Organization Address [facility] Co de Phone Number [facility] ([facility]) [address] [place] [address], [facility] [address] [place] [address], [place] [phone] * Microscopic Examination - (12/28/2024 11:58 AM EDT) WBC, UA None seen 0 - 5 [...] - 01/19/2025 3:06 AM EST Performed at: [address] [id number] Staff Readiness Officer: Edin Tucker PhD, Phone: [phone] Patient Fasting: Y Geronimo Holt DO URINE ORDERABLES Final Result Performing Organization Address City/[facility]/ZIP Co de Phone Number [facility] (AMBULATORY) [address] [place] [address], [facility] [address] [place] [address], * TSH+Free T4 (12/28/2024 11:58 AM EDT) Pathologist [facility] TSH 3.110 0.450 - 4.500 uIU/mL [facility] Free T4 1.37 0.82 - 1.77 ng/dL [facility] Blood 12/28/2024 11:5 8 AM EDT 12/28/2024 Narrative [facility] (AMBULATORY) - 01/19/2025 3:06 AM EST Performed at: 01 - [facility] [address] [place], [place] [id number] Staff Readiness Officer: Edin Tucker PhD, Phone: [phone] Patient Fasting: Y [facility] LAB BLOOD ORDERABLES F inal Result Performing Organization Address City/[facility]/ZIP Co de Phone Number [facility] [address] [place] [address], [facility] [address] [place] [address], * Lupus Anticoag / Cardiolipin Ab (12/28/2024 11:58 AM EDT) Pathologist [facility] Protime 10.4 sec [facility] Comment: Reference [...] and older: 22.9 - 30.2 APTT 1:1 TIRE BAGGER CANCELED sec [facility] Comment: Testing Not [...] repeat testing may be indicated. Please contact [employer] if further clarification is needed. Blood 12/28/2024 11:5 8 AM EDT 12/28/2024 Narrative [facility] (AMBULATORY) - 01/19/2025 3:06 AM EST Performed at: 02 - [employer] [address] [id number] Staff Readiness Officer: Gian Acosta MD, Phone: [phone] Patient Fasting: Y [facility] LAB BLOOD ORDERABLES E dited Result - Final Performing Organization Address City/[facility]/ZIP Co de Phone Number [facility] (AMBULATORY) [address] [place] [address], [place] [phone] [facility] [address] [place] [address], * Thyroid Antibodies (12/28/2024 11:58 AM EDT) Thyroid Peroxidase Antibody 15 0 - 34 IU/mL [facility] Thyroglobulin Ab <1.0 0.0 - 0.9 IU/mL [facility] Comment: Thyroglobulin Antibody measured by Queenie Eyal Methodology It should be noted that the presence of thyroglobulin antibodies may not be pathogenic nor diagnostic, especially at very low levels. The assay staff consultant has found that four percent of individuals without evidence of thyroid disease or autoimmunity will have positive TgAb levels up to 4 IU/mL. Blood 12/28/2024 11:5 8 AM EDT 12/28/2024 [facility] (AMBULATORY) - 01/19/2025 3:06 AM EST Performed at: 01 - [facility] [address] [place] [id number] Staff Readiness Officer: Edin Tucker PhD, Phone: [phone] Patient Fasting: Y [facility] LAB BLOOD ORDERABLES F inal Result Performing Organization Address City/[facility]/ZIP Co de Phone Number [facility] [address] [place] [address], [facility] [address] [place] [address], [place] [phone] * ANCA Panel (12/28/2024 11:58 AM EDT) [...] up testing of positive sera with both IN-3 and MPO-ANCA enzyme immunoassays. As many as 5% serum samples are positive only by EIA. Ref. AM J Clin Pathol 1999;111:507-513. Atypical pANCA <1:20 Neg:<1:20 titer [facility] Comment: The atypical pANCA pattern has been observed in a significant percentage of patients with ulcerative colitis, primary sclerosing cholangitis and autoimmune hepatitis. Blood 12/28/2024 11:5 8 AM EDT 12/28/2024 Narrative [facility] - 01/19/2025 3:06 AM EST Performed at: 03 - [address] [id number] Staff Readiness Officer: Jennifer Shields MD, Phone: [phone] Performed at: 01 - [facility] [address] [place] [id number] Staff Readiness Officer: Edin Tucker PhD, Phone: [phone] Patient Fasting: Y us Geronimo Holt DO LAB BLOOD ORDERABLES F inal Result [facility] (AMBULATORY) [address] [place] [address], [facility] [address] [place] [address], * (ABNORMAL) STEFANY Staining Patterns (12/28/2024 11:58 AM EDT) Pathologist [facility] Speckled Pattern 1:640(H) [facility] Comment:[facility] nomenclature: Agustina C-2,4,5,29 Nuclear Dot Pattern >1:1280(A) [facility] Comment:[facility] nomenclature: Agustina C-6,7 Note: (Reference) Comment [facility] Comment: Pattern Potential Disease Association Homogeneous Systemic Lupus Erythematosus, Drug Induced Systemic Lupus Erythematosus, Chronic Autoimmune hepatitis, Juvenile Idiopathic Arthritis Speckled Sjogren Syndrome, Systemic Lupus Erythematosus, Subacute Cutaneous Lupus, Lupus, Congenital Heart Block, Mixed Connective Tissue Disease, Scleroderma-diffuse, Scleroderma-Autoimmune Myositis Overlap Syndrome, Systemic Lupus Bwwrtdkykovrm-Nmgsfhwymbp-Erqjsgzhto Myositis Overlap Syndrome, Systemic Autoimmune Rheumatic Disease, [...] Syndrome 12/28/2024 11:5 8 AM EDT 12/28/2024 [facility] - 01/19/2025 3:06 AM EST Performed at: [address] [place] [id number] Staff Readiness Officer: Edin Tucker PhD, Phone: [phone] Patient Fasting: Y us Geronimo Holt DO LAB BLOOD ORDERABLES F inal Result [facility] (AMBULATORY) [address] [place] [address], [facility] [address] [place] [address], * HLA-B27 Antigen (12/28/2024 11:58 AM EDT) Pathologist [facility] HLA B27 Negative [facility] Comment: HLA-B*27 Negative B27 allele interpretation for all loci based on IMGT/HLA database version 3.58 This test was developed and its performance characteristics determined by [employer]. It has not been cleared or approved by the Food and Drug Administration. The FDA has determined that such clearance or approval is not necessary. HLA Lab CLIA ID Number [id number] HISTOCOMPATIBILITY SECTION DIRECTOR: Guanakito Martinez, PhD, D([facility]), F([facility]) This test was performed using Polymerase Chain Reaction (PCR) and Sequence Specific Oligonucleotide Probes (SSOP) technique. Sequence Based Typing (SBT) may be used as a supplemental method when necessary. If you have questions, please call [facility] customer service at or email at [email or web address]. Blood 12/28/2024 11:5 8 AM EDT 12/28/2024 Narrative [facility] - 01/19/2025 3:06 AM EST Performed at: - [address] [id number] Staff Readiness Officer: Carli Judd PhD, Phone: [phone] Patient Fasting: Y [employer] LAB BLOOD ORDERABLES F inal Result Performing Organization Address [facility] Co de Phone Number [facility] (AMBULATORY) [address] [place] [address], [facility] [address] [place] [address], * (ABNORMAL) JHONNY by IFA, Reflex to Titer and Pattern (12/28/2024 11:58 AM EDT) JHONNY Positive(A ) [facility] Comment: Negative <1:80 Borderline 1:80 Positive >1:80 Blood 12/28/2024 11:5 8 AM EDT 12/28/2024 Narrative [facility] - 01/19/2025 3:06 AM EST Performed at: [address] [place] [id number] Staff Readiness Officer: Edin Tucker PhD, Phone: [phone] Patient Fasting: Y [employer] LAB BLOOD ORDERABLES F inal Result Performing Organization Address [facility] Co de Phone Number [facility] (AMBULATORY) [address] [place] [address], [facility] [address] [place], [place] [id number], * Cyclic Citrul Peptide Antibody, IgG / IgA (12/28/2024 11:58 AM EDT) [facility] CCP Antibodies IgG/IgA 11 0 - 19 units [facility] Comment: Negative <20 Weak positive 20 - 39 Moderate positive 40 - 59 Strong positive >59 Blood 12/28/2024 11:5 8 AM EDT 12/28/2024 [facility] - 01/19/2025 3:06 AM EST Performed at: [address] [place] [address] [address] [place], [place] [id number] Staff Readiness Officer: Edin Tucker PhD, Phone: [phone] Patient Fasting: Y [facility] BLOOD ORDERABLES F inal Result Performing Organization Address [facility] Co de Phone Number [facility] ([facility]) [address] [place] [address], [facility] [address] [place] [address], [place] [phone] * Aldolase (12/28/2024 11:58 AM EDT) [facility] Aldolase 4.0 3.3 - 10.3 U/L [facility] Blood 12/28/2024 11:5 8 AM EDT 12/28/2024 [facility]) - 01/19/2025 3:06 AM EST Performed at: [address] [place] [address] [address] [place], [place] [id number] Staff Readiness Officer: Edin Tucker PhD, Phone: [phone] Patient Fasting: Y [facility] BLOOD ORDERABLES F inal Result Performing Organization Address City/[facility] Co de Phone Number [facility] [address] [place] [address], [place] [phone] [facility] [address] [place] [address], * Hepatitis Panel, Acute (12/28/2024 11:58 AM EDT) [facility] Hep A IgM Negative Negative [facility] Comment: A negative anti-HAV IgM result suggests no recent or current HAV infection. Hepatitis B Surface Ag Negative Negative [facility] Hep B Core IgM Negative Negative [facility] Hepatitis C Ab Non Reactive Non Reactive [facility] Blood 12/28/2024 11:5 8 AM EDT 12/28/2024 Narrative [facility] (AMBULATORY) - 01/19/2025 3:06 AM EST Performed at: 01 - Lab[address] [id number] Staff Readiness Officer: Edin Tucker PhD, Phone: [phone] Patient Fasting: Y [facility] LAB BLOOD ORDERABLES F inal Result Performing Organization Address [facility]/ZIP Co de Phone Number [facility] ([facility]) [address] [place] [address], [place] [phone] [facility] [address] [place] [address], [place] [phone] * Beta-2 Glycoprotein Antibodies (12/28/2024 11:58 AM EDT) [facility] Beta-2 Glyco 1 IgG <9 0 - 20 GPI IgG units [facility] Beta-2 Glyco 1 IgA <9 0 - 25 GPI IgA units [facility] Beta-2 Glyco 1 IgM <9 0 - 32 GPI IgM units [facility] Blood 12/28/2024 11:5 8 AM EDT 12/28/2024 Narrative [facility] ([facility]) - 01/19/2025 3:06 AM EST [facility]: [facility] [address] [place] [id number] Staff Readiness Officer: Edin Tucker PhD, Phone: [phone] Patient Fasting: Y [facility] LAB BLOOD ORDERABLES F inal Result Performing Organization Address City/[facility]/ZIP Co de Phone Number [facility] [address] [place] [address], [place] [phone] [facility] [address] [place] [address], [place] [phone] * Sedimentation Rate (12/28/2024 11:58 AM EDT) Pathologist [facility] Sed Rate 5 0 - 32 mm/hr [facility] Blood 12/28/2024 11:5 8 AM EDT 12/28/2024 Narrative [facility] (AMBULATORY) - 01/19/2025 3:06 AM EST Performed at: - [facility] [address] [place], [place] [id number] Staff Readiness Officer: Edin Tucker PhD, Phone: [phone] Patient Fasting: Y us Geronimo Holt DO LAB BLOOD ORDERABLES F inal Result [facility] [address] [place] [address], [facility] [address] [place] [address], [place] [phone] * (ABNORMAL) CBC & Differential (12/28/2024 11:58 AM EDT) [facility] WBC 6.3 3.4 - 10.8 x10E3/uL [facility] [...] - 01/19/2025 3:06 AM EST Performed at: [address] [id number] Staff Readiness Officer: Edin Tucker PhD, Phone: [phone] Patient Fasting: Y [employer] LAB BLOOD ORDERABLES F inal Result Performing Organization Address [facility]/ZIP Co de Phone Number [facility] ([facility]) [address] [place] [address], [facility] [address] [place] [address], * C-reactive Protein (12/28/2024 11:58 AM EDT) [facility] C-Reactive Protein 1 0 - 10 mg/L [facility] Blood 12/28/2024 11:5 8 AM EDT 12/28/2024 Narrative [facility] (AMBUL[facility]ORY) - 01/19/2025 3:06 AM EST Performed at: [address] [id number] Staff Readiness Officer: Edin Tucker PhD, Phone: [phone] Patient Fasting: Y Geronimo Kabbee LAB BLOOD ORDERABLES F inal Result Performing Organization Address City/[facility]/ZIP Co de Phone Number [facility] (AMBULATORY) [address] [place] [address], [facility] [address] [place] [address], * CK (12/28/2024 11:58 AM EDT) Pathologist [facility] Creatine Kinase 53 32 - 182 U/L [facility] Blood 12/28/2024 11:5 8 AM EDT 12/28/2024 Narrative [facility] ([facility]) - 01/19/2025 3:06 AM EST [facility]formed [facility] [address] [place] [id number] Staff Readiness Officer: Edin Tucker PhD, Phone: [phone] Patient Fasting: Y Geronimo Holt DO LAB BLOOD ORDERABLES F inal Result Performing Organization Address [facility]/ZIP Co de Phone Number [facility] (AMBULATORY) [address] [place] [id number], [facility] [address] [place] [address], * Comprehensive Metabolic Panel (12/28/2024 11:58 AM EDT) Pathologist [facility] Glucose 85 70 - 99 mg/dL [facility] [...] 11:5 8 AM EDT 12/28/2024 Narrative [facility] (AMBULATORY) - 01/19/2025 3:06 AM EST [facility]formed at: [facility] [address] [place] [id number] Staff Readiness Officer: Edin Tucker PhD, Phone: [phone] Patient Fasting: Y Geronimo Holt LAB BLOOD ORDERABLES F inal Result [facility] (AMBULATORY) [address] [place] [address], [facility] [address] [place] [address], * XR Hand 2 View Bilateral (12/28/2024 11:15 AM EDT) Anatomical Region Laterality Modality Upper Extremities, Hand Bilateral Radiogra phic Imaging 12/29/2024 3:23 PM EDT Impressions 12/29/2024 3:25 PM EDT Impression: Normal. Electronically Signed: Kevin Ashley MD 12/29/2024 3:25 PM EDT Workstation ID: [id number] Narrative 12/29/2024 3:25 PM EDT XR SACROILIAC [...] MD 12/29/2024 3:25 PM EDT Workstation ID: [id number] [facility] [place] DO IMG DIAGNOSTIC IMAGING ORDERABLES Final Result * XR Foot 3+ View Bilateral (12/28/2024 11:15 AM EDT) Anatomical Region Laterality Modality Lower Extremities, Foot Bilateral Radiogra phic Imaging 12/29/2024 3:23 PM EDT Impressions 12/29/2024 3:25 PM EDT Impression: Normal. Electronically Signed: Kevin Ashley MD 12/29/2024 3:25 PM EDT Workstation ID: [id number] Narrative 12/29/2024 3:25 PM EDT XR SACROILIAC [...] MD 12/29/2024 3:25 PM EDT Workstation ID: [id number] Geronimo Holt DO IMG DIAGNOSTIC IMAGING ORDERABLES Final Result * XR Sacroiliac Joints 3+ View (12/28/2024 11:15 AM EDT) Anatomical Region Laterality Modality Body, Spine, Pelvis N/A Radiographic Imaging 12/29/2024 3:23 PM EDT Impressions 12/29/2024 3:25 PM EDT Impression: Normal. Electronically Signed: Kevin Ashley MD 12/29/2024 3:25 PM EDT Workstation ID: [id number] Narrative 12/29/2024 3:25 PM EDT XR SACROILIAC [...] MD 12/29/2024 3:25 PM EDT Workstation ID: [id number] [facility] Holt DO IMG DIAGNOSTIC IMAGING ORDERABLES Final Result * XR Chest 2 View (12/28/2024 11:15 [...] 12/28/2024 11:31 AM EDT Workstation ID: [id number] Geronimo Holt DO IMG DIAGNOSTIC IMAGING ORDERABLES Final Result * SCANNED - PAP SMEAR (10/18/2015) Kofi Antonio MD CHART REVIEW TABS Final Resul t from Last 3 Months or Most Recently Relevant to Health Maintenance Insurance [facility] Care Teams Digital Advertising Specialist Relationship Specialty Start Date End Date Eran Campoverde MD [address] [place] [address] PCP - General Family Medicine 09/30/23
== END 2025-01-30 23:59 | disposition home or self-care (01) ==
LOC: LAB.DROPOF 01-31 14:09
PROVIDERS: PCP Family Medicine; Visit Provider Family Medicine
DX: N92.6 Irregular menstruation, unspecified (principal)
CPT/HCPCS: 84144; 84703; 85025